=== PATIENT | male | born 1960 | race Caucasian/White ===

== ENCOUNTER 2022-02-22 15:47 | Inpatient (IN) | payer MEDICARE, MEDICAID, SELFPAY ==
[2022-02-22] VITALS (22 sets, daily range): BP systolic 151–193; BP diastolic 68–133; PULSE 83–107; RESP 13–24; TEMP 36.4–36.6; O2SAT 96–99; BMI 38.0
--- NOTE | ~2022-02-22 | XR_ITS ---
EXAMINATION: XR abdomen/kub 1V DATE: 02/23/2022 12:47 INDICATION: Constipation TECHNIQUE: A supine view of the abdomen was obtained. COMPARISON: None. FINDINGS: Small amount of stool scattered throughout the colon. No dilated loops of gas-filled bowel to suggest obstruction. Postoperative changes in the lower lumbar spine including likely L5 laminectomy, L5-S1 anterior spinal fusion with interbody bone graft cages and L4-S1 posterior spinal fusion with bilater al plate and pedicle screw fixation. IMPRESSION: 1. Normal bowel gas pattern. Reviewed, dictated and finalized at location B.
--- NOTE | ~2022-02-22 | XR_ITS ---
EXAMINATION: XR hip RT min 2V DATE: 02/23/2022 12:47 INDICATION: Right hip pain. TECHNIQUE: 2 views of right hip were obtained. COMPARISON: None. FINDINGS: Bone alignment is normal. No fracture. There are changes of anterior and posterior fusion p rocedure in lumbosacral spine. Right hip joint space is normal. Vascular stents are noted in right in guinal region and right thigh. IMPRESSION: 1. Normal right hip. Reviewed, dictated and finalized at location A. IMPRESSION: 1. Normal right hip.
--- NOTE | ~2022-02-22 | XR_ITS ---
EXAMINATION: XR chest 2V DATE: 02/22/2022 16:48 INDICATION: Chronic shortness of breath TECHNIQUE: PA and lateral views of the chest are obtained. COMPARISON: None available FINDINGS: The lungs are free of acute opacities. There is no pleural effusion or pneumothorax. The he art size is normal. Median sternotomy wires and mediastinal surgical clips are seen, likely from prio r coronary artery bypass grafting. There is moderate thoracic spondylosis. IMPRESSION: 1. No acute cardiopulmonary abnormality. Reviewed, dictated and finalized at location F.
--- NOTE | 2022-02-22 15:59 | ECG_ITS ---
Measurements Intervals [place] Rate: 94 P: 57 MA: 165 QRS: 110 QRSD: 85 T: 60 QT: 339 QTc: 425 Interpretive Statements SINUS RHYTHM MARKED RIGHT AXIS DEVIATION [QRS AXIS > 100] LOW QRS VOLTAGE IN PRECORDIAL LEADS [QRS DEFLECTION < 1.0 mV IN CHEST LEADS] POSSIBLE ANTERIOR MYOCARDIAL INFARCTION , OLD NO PREVIOUS ECG AVAILABLE FOR COMPARISON Electronically Signed On 02-23-2022 16:11:42 CDT by Taurus Maria M.D.
--- NOTE | 2022-02-22 16:59 | ED.SOB ---
HPI - SOB/Dyspnea General Chief Complaint: Shortness of Breath/Dyspnea Stated Complaint: difficulty breathing and hip pain after a fall Time Seen by Provider: 02/22/22 16:48 History of Present Illness HPI Narrative: 61-year-old male presents the emergency room for evaluation of shortness of breath and bilateral hip pain. Patient states that he was recently released from assisted, and was given a 30-day supply of his medications. Patient states that he has not taken any of his home medications for over 5 days. Patient states that he has had chronic hip pain, and has been awaiting bilateral hip repair. Patient has a history of COPD, and has run out of his inhalers as well. Patient does admit to history of smoking. Related Data Allergies Allergy/AdvReac Type Severity Reaction Status Date / Time No Known Allergies Allergy Verified 02/22/22 17:07 Review of Systems Review of Systems: CONSTITUTIONAL: Denies fever, chills, or sweats. EYES: Denies visual changes, redness, or discharge. ENT: Denies rhinorrhea, congestion, sore throat, or otalgia. CARDIOVASCULAR: Denies chest pain, palpitations, or edema. RESPIRATORY: Reports dyspnea GASTROINTESTINAL: Denies abdominal pain, nausea, vomiting, or diarrhea. GENITOURINARY: Denies dysuria or hematuria. SKIN: Denies rash or itching. MUSCULOSKELETAL: Reports bilateral hip pain NEUROLOGIC: Denies headache, numbness, dizziness, or weakness. PSYCHIATRIC: Denies anxiety or depression. [facility] Past Medical History Medical History (Updated 02/22/22 @ 17:02 by Robin Fernandes, THICKENER OPERATOR) COPD (chronic obstructive pulmonary disease) Diabetes type 2, uncontrolled HTN (hypertension) with goal to be determined Hyperglycemia Exam Narrative: GENERAL: Well-appearing, well-nourished, and in mild respiratory distress HEAD: Normocephalic, atraumatic. EYES: PERRLA and EOMI. CHEST: Clear to auscultation. No respiratory distress. Decreased breath sounds throughout HEART: Tachycardic and regular rhythm. No murmur heard. Normal peripheral pulses. ABDOMEN: Soft, nontender, nondistended, normal active bowel sounds. EXTREMITIES: Normal range of motion. Bilateral ankle edema. SKIN: Warm, dry, no rash. NEURO: No focal deficits. Alert and oriented x3. PSYCH: Normal mood and affect. Course Vital Signs Vital signs: Vital Signs Temperature 36.4 C L 02/22/22 16:00 Pulse Rate 101 H 02/22/22 16:00 Respiratory Rate 20 02/22/22 16:00 Blood Pressure 164/77 H 02/22/22 16:00 Pulse Oximetry 98 02/22/22 16:00 Temperature 36.4 C L 02/22/22 16:00 Pulse Rate 93 02/22/22 18:29 Respiratory Rate 20 02/22/22 16:00 Blood Pressure 164/77 H 02/22/22 16:00 Pulse Oximetry 98 02/22/22 16:00 MDM - SOB/Dyspnea MDM Narrative Medical decision making narrative: 61-year-old male presents the emergency room for evaluation of multiple medical problems. Patient states that he was recently incarcerated in [place], and was released back in November with a 30-day supply of all of his medications. Patient states that he has not taking any of his medications since then, with the exception of insulin that he has been able to get from [facility]. He has been unable to evaluate his blood sugars with a glucometer due to lack of funds. Patient presented complaints of increased thirst, increased urination, bilateral hip pain, and shortness of breath. CBC shows no anemia or leukocytosis. CMP demonstrated an elevated blood sugar of 549 with no anion gap, and renal insufficiency with creatinine of 1.7 and BUN of 45. EKG was sinus tach normal rhythm, chest x-ray showed no acute cardiopulmonary disease. Patient was given a breathing treatment, with minimal relief of his shortness of breath. Fluids were started wide open, 11 units of regular insulin given IV. Medical Records Attestation: I reviewed the patient's medical records. Lab Data Attestation: I reviewed the patient's lab results. Result diagrams: 02/22/22 17:11
[2022-02-22] MEDS: ALBUTEROL SULFATE NEB 2.5 MG/0.5 ML INH INHALATION (17:10)
[2022-02-22] MEDS: IPRATROPIUM BR 0.02% INH SOLN 0.5 MG/2.5 ML VIAL INHALATION (17:10)
[2022-02-22 17:20] LABS: Basophils Percent Auto 0.1 % (0.2-1.2); Hematocrit 42.8 % (42.0-52.0); Immature Granulocyte Absolute 0.05 K/mm3 (0.00-0.031); Immature Granulocyte Percent A 0.7 % (0-0.5); Lymphocytes Absolute Auto 0.81 K/mm3 (0.9-3.2); Lymphocytes Percent Auto 11.9 % (18.3-44.2); Mean Corpuscular HGB Conc 30.4 g/dl (32-36); Mean Corpuscular Hemoglobin 28.1 pg (26-34); Mean Corpuscular Volume 92.4 fl (80-100); Monocytes Absolute Auto 0.4 K/mm3 (0.1-0.6); Monocytes Percent Auto 5.1 % (2.6-8.5); Neutrophils Absolute Auto 5.6 K/mm3 (1.3-6.7); Neutrophils Percent Auto 82.2 % (45.5-73.1); Platelet Count Result 215 k/mm3 (150-375); Red Blood Count 4.63 M/mm3 (4.6-6.20); Red Cell Distribution Width 14.2 % (11.5-14.5); White Blood Count 6.8 K/mm3 (4.5-10.0)
[2022-02-22 17:40] LABS: Alanine Aminotransferase 32 U/L (4-50); Albumin Level 4.2 g/dL (3.5-5.1); Alkaline Phosphatase 92 U/L (38-126); Anion Gap 12 mmol/L (8-16); Aspartate Amino Transferase 34 U/L (17-59); Bilirubin,Total 0.3 mg/dL (0.2-1.3); Blood Urea Nitrogen 45 mg/dL (9-20); Calcium 8.6 mg/dL (8.4-10.2); Carbon Dioxide 19 mmol/L (22-30); Chloride 104 mmol/L (98-107); Estimated CRCL calculation 50 ml/min; Estimated Glomerular Filt Rate 41; Glucose 549 mg/dL (65-110); Potassium 5.3 mmol/L (3.4-5.0); Sodium 135 mmol/L (137-145)
[2022-02-22 17:44] LABS: NT Pro B Type Natriuretic Pept 464 pg/mL (5-100)
[2022-02-22] MEDS: METOPROLOL TARTRATE INJ 5 MG/5 ML VIAL IV PUSH (18:29)
[2022-02-22] MEDS: SODIUM CHLORIDE 0.9% IV 1,000 ML 999 ML IV CONT (18:29)
[2022-02-22] MEDS: methylPREDNISolone SOD SUCC 125 MG VIAL IV PUSH (18:34)
[2022-02-22] MEDS: INSULIN HUMAN REGULAR (*BKC) 100 UNITS/ML 11 UNITS IV PUSH (18:34)
[2022-02-22 20:18] LABS: SARS-CoV-2 RNA PCR Negative
[2022-02-22 20:36] LABS: Glucose Point of Care 441 mg/dl (65-105)
--- NOTE | 2022-02-22 20:45 | PM.IMHP ---
H&P: HPI History of Present Illness Date/Time: Patient requires inpatient monitoring with expected length of stay to exceed 2 midnights for management of care. 02/22/22 20:45 Chief Complaint: Shortness of breath Narrative: Mr. Vigil is a 61-year-old gentleman who presented emergency room with complaints of increasing shortness of breath over the last 3-4 days. Patient states that he was released from nursing home earlier this year and was given a 30 day supply of medications and after that 30 days he ran out. Patient states he has not been taking any of his home medications since December 30. Patient states that he has a known history of diabetes mellitus, dyslipidemia, CAD status post CABG status post stent placement, COPD, hepatitis-C and renal cell carcinoma. Patient denies any chest discomfort and states that he has just been having increasing shortness of breath. Patient denies any lightheadedness, dizziness, syncopal, or near syncopal episodes. Patient states he does continue to smoke approximately a pack of cigarettes a day and has done so for over 30 years. Patient states that in his younger days he did do a lot of crack and cocaine. Patient states that he was incarcerated in [place] and was discharged from the nursing home because he could no longer take care of his medical needs. Patient states he moved from [place] to this area secondary to family being close by. Patient states he has not been able to find a primary care provider at this time because he does not have his Medicaid approved yet. Review of Systems Review of Systems: A 12 point review of systems was completed patient all pertinent positive and negative per HPI the remainder are unremarkable. [facility] Past Medical History Medical History (Updated 02/22/22 @ 21:15 by Adela Hollis APRN) COPD (chronic obstructive pulmonary disease) Coronary artery disease Diabetes type 2, uncontrolled Dyslipidemia Hepatitis C HTN (hypertension) with goal to be determined Peripheral arterial disease Renal cell carcinoma Surgical History Surgical History (Updated 02/22/22 @ 21:02 by Adela Hollis APRN) History of lumbosacral spine surgery Hx of CABG Status post peripheral artery angioplasty with insertion of stent Social History Social History (Updated 02/22/22 @ 21:03 by Adela Hollis APRN) Smoking packs per day: 1 Smoking cigarettes per day: 20.0 Years smoked: 30 Smoking pack-years: 30.00 Smoking status: Current some day smoker Alcohol intake: former Substance use: former Substance use type: crack/cocaine Meds Home Medications and Allergies Home Medications Medication Instructions Recorded Confirmed Type albuterol sulfate 02/22/22 History albuterol sulfate INHALATION 02/22/22 02/22/22 History amlodipine 10 mg PO DAILY 02/22/22 History aspirin [Adult Aspirin EC Low 81 mg PO DAILY 02/22/22 History Strength] atorvastatin 40 mg PO DAILY 02/22/22 History carvedilol [Coreg] 3.125 mg PO BID 02/22/22 History fluticasone propionate 1 spray INTRANASAL DAILY 02/22/22 History furosemide 20 mg PO DAILY 02/22/22 History insulin NPH isoph U-100 human SUBCUT 02/22/22 History [Novolin N NPH U-100 Insulin] insulin regular human [Novolin R 02/22/22 History Regular U-100 Insuln] lisinopril 10 mg PO DAILY 02/22/22 History metformin 1,000 mg PO BIDWMEAL 02/22/22 History pantoprazole 40 mg PO QAM 02/22/22 History prednisone 02/22/22 History tamsulosin 0.8 mg PO HS 02/22/22 History tiotropium bromide 1 cap INHALATION DAILY 02/22/22 History Allergies Allergy/AdvReac Type Severity Reaction Status Date / Time No Known Allergies Allergy Verified 02/22/22 17:07 Vital Signs Vital Signs - 24 hr 02/22/22 16:00 02/22/22 17:12 02/22/22 17:22 Temperature 36.4 C L Pulse Rate 101 H 93 97 Respiratory Rate 20 Blood Pressure 164/77 H Pulse Oximetry 98 02/22/22 17:28 02/22/22 17:30 02/22/22 17:45 Temperature
--- NOTE | 2022-02-22 21:10 | ADMGEN ---
This patient, Flavio Vigil, was admitted to IMU Room 206-02. Patient/family oriented to hospital policies and general routines including ID bracelet, bed and alarms, visiting hours, pain management, procedures, bathroom and other care routines, personal items, smoking policy, room service/diet, and visiting hours. Information on how to activate the Rapid Response Team has been discussed. Patient/Family are encouraged to report perceived risks to care and to ask questions if they do not understand what they are told or what they should do.
[2022-02-22 21:22] LABS: Glucose Point of Care 496 mg/dl (65-105)
[2022-02-22] MEDS: SODIUM CHLORIDE 0.9% IV 1,000 ML 75 ML IV CONT (21:37)
[2022-02-22 21:39] LABS: Glucose 417 mg/dL (65-110)
[2022-02-22] MEDS: hydrALAZINE HCL 20 MG/ML VIAL 10 MG IV PUSH (21:46)
[2022-02-22] MEDS: INSULIN ASPART (*BKC) 100 UNITS/ML 10 UNITS SUB-Q (22:20)
[2022-02-22] MEDS: ACETAMINOPHEN 325 MG TABLET 650 MG PO (22:24)
[2022-02-22 23:46] LABS: Anion Gap 9 mmol/L (8-16); Blood Urea Nitrogen 44 mg/dL (9-20); Calcium 8.5 mg/dL (8.4-10.2); Carbon Dioxide 22 mmol/L (22-30); Chloride 103 mmol/L (98-107); Estimated CRCL calculation 59 ml/min; Estimated Glomerular Filt Rate 52; Glucose 392 mg/dL (65-110); Potassium 4.7 mmol/L (3.4-5.0); Sodium 134 mmol/L (137-145)
[2022-02-23] VITALS (25 sets, daily range): BP systolic 149–180; BP diastolic 63–98; PULSE 78–100; RESP 17–22; TEMP 36.1–36.9; O2SAT 94–99
[2022-02-23] MEDS: TAMSULOSIN HCL 0.4 MG CAPSULE 0.8 MG PO ×2 (00:05→21:41)
[2022-02-23] MEDS: carvediloL 3.125 MG TABLET PO ×3 (00:06→21:41)
[2022-02-23 00:14] LABS: Glucose Point of Care 390 mg/dl (65-105)
[2022-02-23] MEDS: ALBUTEROL SULFATE NEB 2.5 MG/3 ML INH INHALATION ×4 (02:00→20:46)
[2022-02-23] MEDS: IPRATROPIUM BR 0.02% INH SOLN 0.5 MG/2.5 ML VIAL INHALATION ×4 (02:00→20:46)
[2022-02-23 02:20] LABS: Glucose Point of Care 372 mg/dl (65-105)
[2022-02-23 04:10] LABS: Glucose Point of Care 409 mg/dl (65-105)
[2022-02-23] MEDS: INSULIN ASPART (*BKC) 100 UNITS/ML 12 UNITS SUB-Q (04:13)
[2022-02-23 05:12] LABS: Basophils Percent Auto 0.1 % (0.2-1.2); Hematocrit 42.7 % (42.0-52.0); Hemoglobin 13.3 g/dL (14.0-18.0); Immature Granulocyte Absolute 0.06 K/mm3 (0.00-0.031); Immature Granulocyte Percent A 0.9 % (0-0.5); Lymphocytes Absolute Auto 0.81 K/mm3 (0.9-3.2); Lymphocytes Percent Auto 11.5 % (18.3-44.2); Mean Corpuscular HGB Conc 31.1 g/dl (32-36); Mean Corpuscular Hemoglobin 28.2 pg (26-34); Mean Corpuscular Volume 90.5 fl (80-100); Mean Platelet Volume 11.4 fl (7.4-10.4); Monocytes Absolute Auto 0.3 K/mm3 (0.1-0.6); Monocytes Percent Auto 3.5 % (2.6-8.5); Neutrophils Absolute Auto 5.9 K/mm3 (1.3-6.7); Platelet Count Result 222 k/mm3 (150-375); Red Blood Count 4.72 M/mm3 (4.6-6.20); Red Cell Distribution Width 13.8 % (11.5-14.5); White Blood Count 7.1 K/mm3 (4.5-10.0)
[2022-02-23 05:27] LABS: Anion Gap 10 mmol/L (8-16); Blood Urea Nitrogen 43 mg/dL (9-20); Calcium 8.7 mg/dL (8.4-10.2); Carbon Dioxide 21 mmol/L (22-30); Chloride 105 mmol/L (98-107); Estimated CRCL calculation 63 ml/min; Estimated Glomerular Filt Rate 56; Glucose 417 mg/dL (65-110); Magnesium 2.2 mg/dL (1.6-2.3); Potassium 4.9 mmol/L (3.4-5.0); Sodium 136 mmol/L (137-145)
[2022-02-23 06:20] LABS: Glucose Point of Care 381 mg/dl (65-105)
[2022-02-23] MEDS: UMECLIDINIUM BROMIDE 62.5 MCG ELLIPTA 1 PUFF INHALATION (08:34)
[2022-02-23 08:45] LABS: Glucose Point of Care 344 mg/dl (65-105)
[2022-02-23] MEDS: amLODIPine BESYLATE 5 MG TABLET 10 MG PO (09:12)
[2022-02-23] MEDS: ATORVASTATIN 40 MG TABLET PO (09:12)
[2022-02-23] MEDS: ASPIRIN 81 MG ENTERIC TABLET PO (09:13)
[2022-02-23] MEDS: FAMOTIDINE 20 MG TABLET PO (09:13)
[2022-02-23] MEDS: predniSONE 20 MG TABLET 60 MG PO (09:13)
[2022-02-23] MEDS: lisinopriL 5 MG TABLET PO (09:13)
[2022-02-23] MEDS: FLUTICASONE PROPIONATE 0.05% NA SPR 16 GM BTL (*BKC) 1 SPRAY NASAL (09:14)
[2022-02-23] MEDS: AZELASTINE HCL NASAL 0.1% 137 MCG/SPR 30 ML BTL 1 SPRAY NASAL (09:14)
[2022-02-23] MEDS: lisinopriL 10 MG TABLET PO (09:14)
[2022-02-23] MEDS: ENOXAPARIN 40 MG/0.4 ML SYRINGE SUB-Q (09:14)
[2022-02-23] MEDS: CLOPIDOGREL BISULFATE 75 MG TABLET PO (09:14)
[2022-02-23] MEDS: FUROSEMIDE 20 MG TABLET PO (09:15)
[2022-02-23] MEDS: PANTOPRAZOLE 40 MG TABLET PO (09:15)
[2022-02-23] MEDS: INSULIN ASPART (*BKC) 100 UNITS/ML SUB-Q ×3 (09:43→18:03)
[2022-02-23] MEDS: SODIUM CHLORIDE 0.9% IV 1,000 ML 75 ML IV CONT ×2 (09:47→21:40)
--- NOTE | 2022-02-23 10:52 | PM.IMPN ---
Progress Note: A&P Assessment and Plan (1) Diabetes type 2, uncontrolled: Status: Acute Assessment and Plan: -Patient's blood glucose initially in the emergency room is 549. -states he was on multiple diabetic medications prior to running out 1 week ago, reports getting 50 units of insulin BID while in [facility]. -reports he recently had a 5 day course of steroids from the urgent care for his hip pain, this was likely a contributing factor to his even more elevated sugars -Accu-Cheks every 2 hours until glucose is under 300, after that we can change him to every 4 hours. -currently he is to get 17 units of Lantus QHS, high dose sliding scale, and 6 units of novolog TIDWM -will continue to adjust insulin doses as indicated -consult to geriatric physician and end worker appreciated (2) HTN (hypertension) with goal to be determined: Code(s): I10 - Essential (primary) hypertension Status: Acute Assessment and Plan: -Patient has not been taking any medications since December 30 for his blood pressure. -currently on norvasc 10 daily and coreg 3.125 bid -Will have p.r.n. hydralazine available w/ parameters -added lisinopril 5 mg QAM to his 10 mg BID since he is diabetic. -Will adjust medications accordingly for optimal blood pressure control. (3) COPD (chronic obstructive pulmonary disease): Code(s): J44.9 - Chronic obstructive pulmonary disease, unspecified Status: Acute Assessment and Plan: -Patient states he did take inhalers previous to running out -At this point time will have nebulizer treatments every 6 hours. -reports increased cough, cxr no acute findings -check flu -covid negative (4) ELOISA (acute kidney injury): Code(s): N17.9 - Acute kidney failure, unspecified Status: Acute Assessment and Plan: -Unsure of patient's baseline kidney function. -Will attempt to get records from [place] were patient was incarcerated. -receiving IVF @ 75 /hr (5) Hip pain: Code(s): M25.559 - Pain in unspecified hip Status: Acute Assessment and Plan: -reports terrible R hip pain, states waiting to see ortho but was told in [facility] he needs a hip replacement -also notes has had several recent falls exacerbating the pain -ordered hip XR -tylenol prn for now (6) Diabetic neuropathy: Code(s): E11.40 - Type 2 diabetes mellitus with diabetic neuropathy, unspecified Status: Acute Assessment and Plan: -start gabapentin (7) Constipation: Code(s): K59.00 - Constipation, unspecified Status: Acute Assessment and Plan: -reports to BM in 8 days -colace and miralax scheduled -check KUB (8) Urinary incontinence: Code(s): R32 - Unspecified urinary incontinence Status: Acute Assessment and Plan: -polyuria secondary to HTN? -check UA -continue flomax for BPH Subjective Date/time seen: 02/23/22 10:52 Interval history: 61 yo male w/ hx of diabetes mellitus, dyslipidemia, CAD status post CABG status post stent placement, COPD, hepatitis-C and renal cell carcinoma, admitted for hyperglycemia. Pt has multiple complaints today. He states his R hip pain is so bad he can barely walk. Is waiting to see ortho but was told in [facility] he needs a hip replacement. Went to urgent care recently and got a course of steroids. Has also been having falls recently exacerbating the pain. He c/o urinary incontinence and weak stream, no dysuria. Also notes constipation with no BM x 8 days. No nausea or abd pain. Has sob and had been using his inhaler at least 4 times a day until he ran out. C/o chest pain with cough which he has also had for a few weeks. Review of Systems Review of Systems: All systems reviewed & are unremarkable except as noted in HPI and below Exam Narrative: General: No acute distress, non toxic appearing Eyes: PERRL, no scleral
[2022-02-23 10:58] LABS: Glucose Point of Care 380 mg/dl (65-105)
[2022-02-23] MEDS: INSULIN ASPART (*BKC) 100 UNITS/ML 6 UNITS SUB-Q ×3 (14:35→18:03)
[2022-02-23] MEDS: GABAPENTIN 100 MG CAPSULE PO ×2 (14:41→18:03)
[2022-02-23 17:08] LABS: Glucose Point of Care 445 mg/dl (65-105)
[2022-02-23 20:02] LABS: Glucose Point of Care 453 mg/dl (65-105)
[2022-02-23] MEDS: DOCUSATE SODIUM 100 MG CAPSULE PO (21:41)
[2022-02-23] MEDS: INSULIN GLARGINE (*BKC) 100 UNITS/ML 17 UNITS SUB-Q (21:41)
[2022-02-23 22:15] LABS: Add Urine Microscopic? YES; Appearance Urine Clear (Clear); Bilirubin Urine Negative (Negative); Blood Urine Negative (Negative); Color Urine Straw (Yellow); Glucose Urine UA 3+ mg/dL (Negative); Ketones Urine Negative (Negative); Leukocyte Esterase Ur Negative LEU/UL (Negative); Nitrate Urine Negative (Negative); Protein Urine Negative (Negative); RBC Urine 0-2 /hpf (0-2); Specific Grav Ur 1.026 (1.001-1.035); Squamous Epithelial Cell Urine Rare /hpf (Few); Urobilinogen Urine Negative mg/dL (<2.0); WBC Urine 0-3 /hpf
[2022-02-24] VITALS (20 sets, daily range): BP systolic 141–163; BP diastolic 74–90; PULSE 68–84; RESP 16–22; TEMP 36.2–36.9; O2SAT 96–99; BMI 38.0
[2022-02-24] MEDS: IPRATROPIUM BR 0.02% INH SOLN 0.5 MG/2.5 ML VIAL INHALATION ×4 (02:35→21:00)
[2022-02-24] MEDS: ALBUTEROL SULFATE NEB 2.5 MG/3 ML INH INHALATION ×4 (02:35→20:59)
[2022-02-24 05:13] LABS: Basophils Percent Auto 0.1 % (0.2-1.2); Eosinophils Percent Auto 0.1 % (0-4.4); Hemoglobin 13.4 g/dL (14.0-18.0); Immature Granulocyte Absolute 0.06 K/mm3 (0.00-0.031); Immature Granulocyte Percent A 0.8 % (0-0.5); Lymphocytes Absolute Auto 1.63 K/mm3 (0.9-3.2); Lymphocytes Percent Auto 22.1 % (18.3-44.2); Mean Corpuscular HGB Conc 31.9 g/dl (32-36); Mean Corpuscular Hemoglobin 27.8 pg (26-34); Mean Corpuscular Volume 87.1 fl (80-100); Mean Platelet Volume 11.1 fl (7.4-10.4); Monocytes Absolute Auto 0.6 K/mm3 (0.1-0.6); Monocytes Percent Auto 7.7 % (2.6-8.5); Neutrophils Absolute Auto 5.1 K/mm3 (1.3-6.7); Neutrophils Percent Auto 69.2 % (45.5-73.1); Platelet Count Result 212 k/mm3 (150-375); Red Blood Count 4.82 M/mm3 (4.6-6.20); Red Cell Distribution Width 13.7 % (11.5-14.5); White Blood Count 7.4 K/mm3 (4.5-10.0)
[2022-02-24 05:38] LABS: Alanine Aminotransferase 26 U/L (4-50); Albumin Level 3.7 g/dL (3.5-5.1); Alkaline Phosphatase 72 U/L (38-126); Anion Gap 9 mmol/L (8-16); Aspartate Amino Transferase 21 U/L (17-59); Bilirubin,Total 0.4 mg/dL (0.2-1.3); Blood Urea Nitrogen 33 mg/dL (9-20); Calcium 8.5 mg/dL (8.4-10.2); Carbon Dioxide 23 mmol/L (22-30); Chloride 103 mmol/L (98-107); Estimated CRCL calculation 68 ml/min; Estimated Glomerular Filt Rate > 60; Glucose 362 mg/dL (65-110); Potassium 4.6 mmol/L (3.4-5.0); Sodium 135 mmol/L (137-145)
[2022-02-24] MEDS: UMECLIDINIUM BROMIDE 62.5 MCG ELLIPTA 1 PUFF INHALATION (08:04)
[2022-02-24 08:20] LABS: Hemoglobin A1C 10.3 % (<5.7)
[2022-02-24 08:43] LABS: Glucose Point of Care 292 mg/dl (65-105)
[2022-02-24] MEDS: INSULIN ASPART (*BKC) 100 UNITS/ML SUB-Q ×3 (08:49→16:35)
[2022-02-24] MEDS: INSULIN ASPART (*BKC) 100 UNITS/ML 10 UNITS SUB-Q ×3 (08:49→16:35)
[2022-02-24] MEDS: GABAPENTIN 100 MG CAPSULE PO ×3 (08:50→18:11)
[2022-02-24] MEDS: ATORVASTATIN 40 MG TABLET PO (08:50)
[2022-02-24] MEDS: FAMOTIDINE 20 MG TABLET PO (08:50)
[2022-02-24] MEDS: amLODIPine BESYLATE 5 MG TABLET 10 MG PO (08:50)
[2022-02-24] MEDS: ASPIRIN 81 MG ENTERIC TABLET PO (08:50)
[2022-02-24] MEDS: DOCUSATE SODIUM 100 MG CAPSULE PO ×2 (08:50→20:27)
[2022-02-24] MEDS: lisinopriL 10 MG TABLET PO (08:50)
[2022-02-24] MEDS: predniSONE 20 MG TABLET 60 MG PO (08:50)
[2022-02-24] MEDS: CLOPIDOGREL BISULFATE 75 MG TABLET PO (08:50)
[2022-02-24] MEDS: FUROSEMIDE 20 MG TABLET PO (08:51)
[2022-02-24] MEDS: ENOXAPARIN 40 MG/0.4 ML SYRINGE SUB-Q (08:51)
[2022-02-24] MEDS: lisinopriL 5 MG TABLET PO (08:51)
[2022-02-24] MEDS: FLUTICASONE PROPIONATE 0.05% NA SPR 16 GM BTL (*BKC) 1 SPRAY NASAL (08:51)
[2022-02-24] MEDS: PANTOPRAZOLE 40 MG TABLET PO (08:51)
[2022-02-24] MEDS: AZELASTINE HCL NASAL 0.1% 137 MCG/SPR 30 ML BTL 1 SPRAY NASAL ×2 (08:52→20:26)
[2022-02-24] MEDS: carvediloL 3.125 MG TABLET PO ×2 (08:52→20:26)
[2022-02-24] MEDS: polyethylene glycoL 3350 17 GM POWD.PACK PO (08:52)
--- NOTE | 2022-02-24 10:03 | PM.IMPN ---
Progress Note: A&P Assessment and Plan (1) Diabetes type 2, uncontrolled: Status: Acute Assessment and Plan: -Patient's blood glucose initially in the emergency room is 549. -hgb A1c 10.3 -states he was on multiple diabetic medications prior to running out 1 week ago, reports getting 50 units of insulin BID while in senior care. (today he corrects himself and says it was really 30 units BID) -reports he recently had a 5 day course of steroids from the urgent care for his hip pain, this was likely a contributing factor to his even more elevated sugars -Accu-Cheks every 2 hours until glucose is under 300, after that we can change him to every 4 hours. -yesterday he received 17 units of Lantus QHS, high dose sliding scale, and 6 units of novolog TIDWM -today I have increased him to 30 units of Lantus QHS, 10 units novolog TIDWM, and continue high dose sliding scale -will continue to adjust insulin doses as indicated -consult to traveling passenger agent and wellfield technician appreciated (2) HTN (hypertension) with goal to be determined: Code(s): I10 - Essential (primary) hypertension Status: Acute Assessment and Plan: -Patient has not been taking any medications since December 30 for his blood pressure. -currently on norvasc 10 daily and coreg 3.125 bid -Will have p.r.n. hydralazine available w/ parameters -added lisinopril 5 mg QAM to his 10 mg BID since he is diabetic. -Will adjust medications accordingly for optimal blood pressure control. (3) COPD (chronic obstructive pulmonary disease): Code(s): J44.9 - Chronic obstructive pulmonary disease, unspecified Status: Acute Assessment and Plan: -Patient states he did take inhalers previous to running out -At this point time will have nebulizer treatments every 6 hours. -reports increased cough, cxr no acute findings -check flu -covid negative (4) ELOISA (acute kidney injury): Code(s): N17.9 - Acute kidney failure, unspecified Status: Acute Assessment and Plan: -Unsure of patient's baseline kidney function. -Will attempt to get records from [place] were patient was incarcerated. -receiving IVF @ 75 /hr, improved from 1.7 to 1.2 (5) Hip pain: Code(s): M25.559 - Pain in unspecified hip Status: Acute Assessment and Plan: -reports terrible R hip pain, states waiting to see ortho but was told in senior care he needs a hip replacement -also notes has had several recent falls exacerbating the pain -hip XR normal -tylenol prn (6) Diabetic neuropathy: Code(s): E11.40 - Type 2 diabetes mellitus with diabetic neuropathy, unspecified Status: Acute Assessment and Plan: -started gabapentin -pt reports significant improvement (7) Constipation: Code(s): K59.00 - Constipation, unspecified Status: Acute Assessment and Plan: -reports to BM in 9 days -colace and miralax scheduled -KUB normal (8) Urinary incontinence: Code(s): R32 - Unspecified urinary incontinence Status: Acute Assessment and Plan: -polyuria secondary to hyperglycemia? -UA w/ 3+ glucose otherwise normal -continue flomax for BPH Subjective Date/time seen: 02/24/22 10:03 Interval history: 61 yo male w/ hx of diabetes mellitus, dyslipidemia, CAD status post CABG status post stent placement, COPD, hepatitis-C and renal cell carcinoma, admitted for hyperglycemia. Pt is overall feeling better since being here and having his meds restarted. Blood sugar is still relatively uncontrolled. His hip is still hurting but his peripheral neuropathy in his feet is significantly improved with gabapentin. No cp. Sob is improved today. No N/V/abd pain. Still no BM. Review of Systems Review of Systems: All systems reviewed & are unremarkable except as noted in HPI and below Exam Narrative: General: No acute distress, non toxic appearing, o
[2022-02-24] MEDS: SODIUM CHLORIDE 0.9% IV 1,000 ML 75 ML IV CONT (11:09)
[2022-02-24 11:34] LABS: Glucose Point of Care 356 mg/dl (65-105)
--- NOTE | 2022-02-24 13:09 | PCDIET ---
Pt was educated on diabetic diet recommendations. Carbohydrates sources, serving sizes and portions all discussed. Handouts provided. Pt demonstrated good understanding and comprehension. Eager to continue to learn. Recommend a referral for outpatient education. Thank you for the consult.
[2022-02-24 16:30] LABS: Glucose Point of Care 332 mg/dl (65-105)
[2022-02-24] MEDS: TAMSULOSIN HCL 0.4 MG CAPSULE 0.8 MG PO (20:27)
[2022-02-24] MEDS: INSULIN GLARGINE (*BKC) 100 UNITS/ML 30 UNITS SUB-Q (20:30)
[2022-02-24 20:51] LABS: Glucose Point of Care 340 mg/dl (65-105)
[2022-02-25] VITALS (13 sets, daily range): BP systolic 157–163; BP diastolic 71–87; PULSE 68–84; RESP 18–19; TEMP 36.5–36.7; O2SAT 94–98
[2022-02-25] MEDS: SODIUM CHLORIDE 0.9% IV 1,000 ML 75 ML IV CONT ×3 (00:19→14:37)
[2022-02-25] MEDS: ALBUTEROL SULFATE NEB 2.5 MG/3 ML INH INHALATION ×4 (02:36→19:59)
[2022-02-25] MEDS: IPRATROPIUM BR 0.02% INH SOLN 0.5 MG/2.5 ML VIAL INHALATION ×4 (02:36→19:59)
[2022-02-25 05:46] LABS: Basophils Percent Auto 0.1 % (0.2-1.2); Eosinophils Percent Auto 0.5 % (0-4.4); Hematocrit 43.8 % (42.0-52.0); Hemoglobin 13.5 g/dL (14.0-18.0); Immature Granulocyte Absolute 0.07 K/mm3 (0.00-0.031); Immature Granulocyte Percent A 0.8 % (0-0.5); Lymphocytes Absolute Auto 1.85 K/mm3 (0.9-3.2); Lymphocytes Percent Auto 22.1 % (18.3-44.2); Mean Corpuscular HGB Conc 30.8 g/dl (32-36); Mean Corpuscular Hemoglobin 27.6 pg (26-34); Mean Corpuscular Volume 89.6 fl (80-100); Monocytes Absolute Auto 0.6 K/mm3 (0.1-0.6); Monocytes Percent Auto 7.4 % (2.6-8.5); Neutrophils Absolute Auto 5.8 K/mm3 (1.3-6.7); Neutrophils Percent Auto 69.1 % (45.5-73.1); Platelet Count Result 202 k/mm3 (150-375); Red Blood Count 4.89 M/mm3 (4.6-6.20); Red Cell Distribution Width 13.8 % (11.5-14.5); White Blood Count 8.4 K/mm3 (4.5-10.0)
[2022-02-25 05:57] LABS: Alanine Aminotransferase 33 U/L (4-50); Albumin Level 3.5 g/dL (3.5-5.1); Alkaline Phosphatase 65 U/L (38-126); Anion Gap 3 mmol/L (8-16); Aspartate Amino Transferase 28 U/L (17-59); Bilirubin,Total 0.4 mg/dL (0.2-1.3); Blood Urea Nitrogen 30 mg/dL (9-20); Calcium 8.2 mg/dL (8.4-10.2); Carbon Dioxide 25 mmol/L (22-30); Chloride 102 mmol/L (98-107); Estimated CRCL calculation 74 ml/min; Estimated Glomerular Filt Rate > 60; Glucose 312 mg/dL (65-110); Potassium 4.5 mmol/L (3.4-5.0); Sodium 130 mmol/L (137-145)
[2022-02-25 07:47] LABS: Glucose Point of Care 307 mg/dl (65-105)
[2022-02-25] MEDS: INSULIN ASPART (*BKC) 100 UNITS/ML 10 UNITS SUB-Q ×2 (08:04→11:47)
[2022-02-25] MEDS: INSULIN ASPART (*BKC) 100 UNITS/ML SUB-Q ×3 (08:05→16:42)
[2022-02-25] MEDS: FAMOTIDINE 20 MG TABLET PO (08:06)
[2022-02-25] MEDS: carvediloL 3.125 MG TABLET PO ×2 (08:06→21:10)
[2022-02-25] MEDS: amLODIPine BESYLATE 5 MG TABLET 10 MG PO (08:06)
[2022-02-25] MEDS: FUROSEMIDE 20 MG TABLET PO (08:06)
[2022-02-25] MEDS: PANTOPRAZOLE 40 MG TABLET PO (08:07)
[2022-02-25] MEDS: lisinopriL 10 MG TABLET PO (08:07)
[2022-02-25] MEDS: GABAPENTIN 100 MG CAPSULE PO ×3 (08:07→16:43)
[2022-02-25] MEDS: CLOPIDOGREL BISULFATE 75 MG TABLET PO (08:07)
[2022-02-25] MEDS: ASPIRIN 81 MG ENTERIC TABLET PO (08:07)
[2022-02-25] MEDS: ATORVASTATIN 40 MG TABLET PO (08:07)
[2022-02-25] MEDS: polyethylene glycoL 3350 17 GM POWD.PACK PO (08:08)
[2022-02-25] MEDS: lisinopriL 5 MG TABLET PO (08:08)
[2022-02-25] MEDS: predniSONE 20 MG TABLET 60 MG PO (08:08)
[2022-02-25] MEDS: DOCUSATE SODIUM 100 MG CAPSULE PO ×2 (08:08→21:10)
[2022-02-25] MEDS: ENOXAPARIN 40 MG/0.4 ML SYRINGE SUB-Q (08:08)
[2022-02-25] MEDS: FLUTICASONE PROPIONATE 0.05% NA SPR 16 GM BTL (*BKC) 1 SPRAY NASAL (08:15)
[2022-02-25] MEDS: AZELASTINE HCL NASAL 0.1% 137 MCG/SPR 30 ML BTL 1 SPRAY NASAL ×2 (08:15→21:10)
[2022-02-25] MEDS: ACETAMINOPHEN 325 MG TABLET 650 MG PO (08:19)
[2022-02-25] MEDS: UMECLIDINIUM BROMIDE 62.5 MCG ELLIPTA 1 PUFF INHALATION (09:13)
[2022-02-25 11:46] LABS: Glucose Point of Care 239 mg/dl (65-105)
--- NOTE | 2022-02-25 12:28 | PC.NURSE ---
Faxed [facility]
--- NOTE | 2022-02-25 15:08 | P.PNIM_ITS ---
Progress Note: A&P Assessment and Plan (1) Diabetes type 2, uncontrolled: Status: Acute Assessment and Plan: * Patient's blood glucose initially in the emergency room is 549. * Fasting Blood glucose 312 today * Discontinued prednisone 60mg. * hgb A1c 10.3 * He now states he was on multiple diabetic medications prior to running out 1 week ago, to include metformin, and 30 units of long-acting insulin BID and 30 units of short-acting insulin b.i.d. while in [facility]. * Accu-Cheks every 4 hours. * Yesterday he received 30 units units of Lantus QHS, and 25 units of NovoLog with his high dose sliding scale insulin, and 10 units of novolog TIDWM, total of 85 units * I will increased his lantus to 40 units & Novolog to 13 units TIDWM * will continue to adjust insulin doses as indicated * Patient spoke with diabetic mva reactor operator head and educator today. (2) HTN (hypertension) with goal to be determined: Code(s): I10 - Essential (primary) hypertension Status: Acute Assessment and Plan: -Patient has not been taking any medications since December 30 for his blood pressure. -Currently on norvasc 10 daily, coreg 3.125 bid, and Lisinopril 15mg daily -Will have p.r.n. hydralazine available w/ parameters -Increase lisinopril to 20mg daily, as pt still hypertensive. -Will adjust medications accordingly for optimal blood pressure control. (3) COPD (chronic obstructive pulmonary disease): Code(s): J44.9 - Chronic obstructive pulmonary disease, unspecified Status: Acute Assessment and Plan: * Patient states he did take inhalers previous to running out * At this point time will have nebulizer treatments every 6 hours. * reports increased cough, cxr no acute findings * check flu * covid negative (4) ELOISA (acute kidney injury): Code(s): N17.9 - Acute kidney failure, unspecified Status: Acute Assessment and Plan: * patient creatinine normalized to 1.1 * BUN still elevated, but patient is orally rehydrating. * Will continue IV fluids for now. (5) Hip pain: Code(s): M25.559 - Pain in unspecified hip Status: Acute Assessment and Plan: * reports terrible R hip pain, states waiting to see ortho but was told in [facility] he needs a hip replacement * also notes has had several recent falls exacerbating the pain * hip XR normal * tylenol prn (6) Diabetic neuropathy: Code(s): E11.40 - Type 2 diabetes mellitus with diabetic neuropathy, unspecified Status: Acute Assessment and Plan: * started gabapentin * pt reports significant improvement (7) Constipation: Code(s): K59.00 - Constipation, unspecified Status: Acute Assessment and Plan: * reports last BM in 9 days, with some crampy abdominal pain today. * colace and miralax scheduled * KUB normal * Enema today (8) Urinary incontinence: Code(s): R32 - Unspecified urinary incontinence Status: Acute Assessment and Plan: * polyuria secondary to hyperglycemia? * UA w/ 3+ glucose otherwise normal * continue flomax for BPH Subjective Date/time seen: 02/25/22 15:08 61-year-old male with history of COPD, hypertension, diabetes mellitus type 2, BPH, who presents to our care with elevated blood glucose. He recently ran out of all of his medications after receiving a compassionate release from [facility]. He states he was diagnosed with nat[place]
--- NOTE | 2022-02-25 15:08 | PM.IMPN ---
Progress Note: A&P Assessment and Plan (1) Diabetes type 2, uncontrolled: Status: Acute Assessment and Plan: Patient's blood glucose initially in the emergency room is 549. Fasting Blood glucose 312 today Discontinued prednisone 60mg. hgb A1c 10.3 He now states he was on multiple diabetic medications prior to running out 1 week ago, to include metformin, and 30 units of long-acting insulin BID and 30 units of short-acting insulin b.i.d. while in [facility]. Accu-Cheks every 4 hours. Yesterday he received 30 units units of Lantus QHS, and 25 units of NovoLog with his high dose sliding scale insulin, and 10 units of novolog TIDWM, total of 85 units I will increased his lantus to 40 units & Novolog to 13 units TIDWM will continue to adjust insulin doses as indicated Patient spoke with diabetic facility maintenance supervisor and educator today. (2) HTN (hypertension) with goal to be determined: Code(s): I10 - Essential (primary) hypertension Status: Acute Assessment and Plan: -Patient has not been taking any medications since December 30 for his blood pressure. -Currently on norvasc 10 daily, coreg 3.125 bid, and Lisinopril 15mg daily -Will have p.r.n. hydralazine available w/ parameters -Increase lisinopril to 20mg daily, as pt still hypertensive. -Will adjust medications accordingly for optimal blood pressure control. (3) COPD (chronic obstructive pulmonary disease): Code(s): J44.9 - Chronic obstructive pulmonary disease, unspecified Status: Acute Assessment and Plan: Patient states he did take inhalers previous to running out At this point time will have nebulizer treatments every 6 hours. reports increased cough, cxr no acute findings check flu covid negative (4) ELOISA (acute kidney injury): Code(s): N17.9 - Acute kidney failure, unspecified Status: Acute Assessment and Plan: patient creatinine normalized to 1.1 BUN still elevated, but patient is orally rehydrating. Will continue IV fluids for now. (5) Hip pain: Code(s): M25.559 - Pain in unspecified hip Status: Acute Assessment and Plan: reports terrible R hip pain, states waiting to see ortho but was told in [facility] he needs a hip replacement also notes has had several recent falls exacerbating the pain hip XR normal tylenol prn (6) Diabetic neuropathy: Code(s): E11.40 - Type 2 diabetes mellitus with diabetic neuropathy, unspecified Status: Acute Assessment and Plan: started gabapentin pt reports significant improvement (7) Constipation: Code(s): K59.00 - Constipation, unspecified Status: Acute Assessment and Plan: reports last BM in 9 days, with some crampy abdominal pain today. colace and miralax scheduled KUB normal Enema today (8) Urinary incontinence: Code(s): R32 - Unspecified urinary incontinence Status: Acute Assessment and Plan: polyuria secondary to hyperglycemia? UA w/ 3+ glucose otherwise normal continue flomax for BPH Subjective Date/time seen: 02/25/22 15:08 61-year-old male with history of COPD, hypertension, diabetes mellitus type 2, BPH, who presents to our care with elevated blood glucose. He recently ran out of all of his medications after receiving a compassionate release from [facility]. He states he was diagnosed with renal cancer on both sides, peripheral vascular disease, and also needs a left hip replacement, none of which was taken care of while he was incarcerated. He states yesterday has Medicaid went into affect, and he plans on scheduling an outpatient appointment with a primary care provider that he was referred to from urgent care as soon as possible. He denies chest pain, nausea, vomiting, decreased appetite, shortness a breath at rest, dizziness, diarrhea, or blood in the stool, or syncope. He endorses crampy left lowe
[2022-02-25 16:24] LABS: Glucose Point of Care 367 mg/dl (65-105)
[2022-02-25] MEDS: INSULIN ASPART (*BKC) 100 UNITS/ML 13 UNITS SUB-Q (16:41)
[2022-02-25] MEDS: BISACODYL 10 MG SUPPOSITORY RECTAL (16:41)
[2022-02-25 20:04] LABS: Glucose Point of Care 353 mg/dl (65-105)
[2022-02-25] MEDS: INSULIN GLARGINE (*BKC) 100 UNITS/ML 40 UNITS SUB-Q (21:06)
[2022-02-25] MEDS: INSULIN ASPART (*BKC) 100 UNITS/ML 8 UNITS SUB-Q (21:07)
[2022-02-25] MEDS: TAMSULOSIN HCL 0.4 MG CAPSULE 0.8 MG PO (21:10)
[2022-02-26] VITALS (15 sets, daily range): BP systolic 131–159; BP diastolic 58–73; PULSE 70–84; RESP 2–18; TEMP 36.4–36.6; O2SAT 97–98
[2022-02-26] MEDS: ALBUTEROL SULFATE NEB 2.5 MG/3 ML INH INHALATION ×4 (01:30→20:50)
[2022-02-26] MEDS: IPRATROPIUM BR 0.02% INH SOLN 0.5 MG/2.5 ML VIAL INHALATION ×4 (01:30→20:50)
[2022-02-26] MEDS: SODIUM CHLORIDE 0.9% IV 1,000 ML 75 ML IV CONT ×2 (03:51→16:33)
[2022-02-26 07:22] LABS: Glucose Point of Care 303 mg/dl (65-105)
[2022-02-26] MEDS: FLUTICASONE PROPIONATE 0.05% NA SPR 16 GM BTL (*BKC) 1 SPRAY NASAL (08:04)
[2022-02-26] MEDS: polyethylene glycoL 3350 17 GM POWD.PACK PO (08:04)
[2022-02-26] MEDS: lisinopriL 20 MG TABLET PO (08:05)
[2022-02-26] MEDS: AZELASTINE HCL NASAL 0.1% 137 MCG/SPR 30 ML BTL 1 SPRAY NASAL ×2 (08:05→19:55)
[2022-02-26] MEDS: CLOPIDOGREL BISULFATE 75 MG TABLET PO (08:05)
[2022-02-26] MEDS: ASPIRIN 81 MG ENTERIC TABLET PO (08:05)
[2022-02-26] MEDS: FUROSEMIDE 20 MG TABLET PO (08:05)
[2022-02-26] MEDS: FAMOTIDINE 20 MG TABLET PO (08:05)
[2022-02-26] MEDS: ENOXAPARIN 40 MG/0.4 ML SYRINGE SUB-Q (08:05)
[2022-02-26] MEDS: amLODIPine BESYLATE 5 MG TABLET 10 MG PO (08:05)
[2022-02-26] MEDS: GABAPENTIN 100 MG CAPSULE PO ×3 (08:06→16:29)
[2022-02-26] MEDS: carvediloL 3.125 MG TABLET PO ×2 (08:06→20:02)
[2022-02-26] MEDS: ATORVASTATIN 40 MG TABLET PO (08:06)
[2022-02-26] MEDS: DOCUSATE SODIUM 100 MG CAPSULE PO ×2 (08:06→19:55)
[2022-02-26] MEDS: PANTOPRAZOLE 40 MG TABLET PO (08:06)
[2022-02-26] MEDS: INSULIN ASPART (*BKC) 100 UNITS/ML 13 UNITS SUB-Q ×3 (08:06→16:29)
[2022-02-26] MEDS: INSULIN ASPART (*BKC) 100 UNITS/ML SUB-Q ×2 (08:06→11:33)
[2022-02-26] MEDS: UMECLIDINIUM BROMIDE 62.5 MCG ELLIPTA 1 PUFF INHALATION (08:21)
[2022-02-26 09:58] LABS: Influenza A QL RT-PCR Negative (Negative); Influenza B QL RT-PCR Negative (Negative)
[2022-02-26 11:28] LABS: Glucose Point of Care 300 mg/dl (65-105)
[2022-02-26 13:19] LABS: Basophils Percent Auto 0.3 % (0.2-1.2); Eosinophils Absolute Auto 0.1 K/mm3 (0-0.3); Eosinophils Percent Auto 1.8 % (0-4.4); Hematocrit 43.2 % (42.0-52.0); Hemoglobin 13.8 g/dL (14.0-18.0); Immature Granulocyte Absolute 0.12 K/mm3 (0.00-0.031); Immature Granulocyte Percent A 1.5 % (0-0.5); Lymphocytes Absolute Auto 2.48 K/mm3 (0.9-3.2); Lymphocytes Percent Auto 31.2 % (18.3-44.2); Mean Corpuscular HGB Conc 31.9 g/dl (32-36); Mean Corpuscular Hemoglobin 28.2 pg (26-34); Mean Corpuscular Volume 88.3 fl (80-100); Mean Platelet Volume 11.3 fl (7.4-10.4); Monocytes Absolute Auto 0.7 K/mm3 (0.1-0.6); Monocytes Percent Auto 9.2 % (2.6-8.5); Neutrophils Absolute Auto 4.5 K/mm3 (1.3-6.7); Platelet Count Result 214 k/mm3 (150-375); Red Blood Count 4.89 M/mm3 (4.6-6.20); Red Cell Distribution Width 13.8 % (11.5-14.5)
[2022-02-26 13:31] LABS: Alanine Aminotransferase 52 U/L (4-50); Albumin Level 3.6 g/dL (3.5-5.1); Alkaline Phosphatase 73 U/L (38-126); Anion Gap 7 mmol/L (8-16); Aspartate Amino Transferase 40 U/L (17-59); Bilirubin,Total 0.3 mg/dL (0.2-1.3); Blood Urea Nitrogen 28 mg/dL (9-20); Calcium 8.3 mg/dL (8.4-10.2); Carbon Dioxide 26 mmol/L (22-30); Chloride 98 mmol/L (98-107); Estimated CRCL calculation 68 ml/min; Estimated Glomerular Filt Rate > 60; Glucose 326 mg/dL (65-110); Potassium 3.9 mmol/L (3.4-5.0); Sodium 131 mmol/L (137-145)
--- NOTE | 2022-02-26 14:16 | PM.IMPN ---
Progress Note: A&P Assessment and Plan (1) Diabetes type 2, uncontrolled: Status: Acute Assessment and Plan: Patient's blood glucose initially in the emergency room is 549. Fasting Blood glucose 326 today Hgb A1c 10.3 He now states he was on multiple diabetic medications prior to running out 1 week ago. He now states that he has actually been off all medications for over 2 months. Accu-Cheks every 4 hours. Today so far he has received 90 units, up from 81 yesterday. I will increase 50 lantus at night & 17 units Novolog to TIDWM. Continue high dose sliding scale insulin. Will continue to adjust insulin doses as indicated Patient still has a poor understanding of his diabetic medications and fingersticks, will ask for re-visit with primary special educator. (2) HTN (hypertension) with goal to be determined: Code(s): I10 - Essential (primary) hypertension Status: Acute Assessment and Plan: Blood pressures in 150s today. Currently on norvasc 10 daily, coreg 3.125 bid, and Lisinopril 20mg daily Will have p.r.n. hydralazine available w/ parameters. Will adjust medications accordingly for optimal blood pressure control. (3) COPD (chronic obstructive pulmonary disease): Code(s): J44.9 - Chronic obstructive pulmonary disease, unspecified Status: Acute Assessment and Plan: Patient states he did take inhalers previous to running out At this point time will have nebulizer treatments every 6 hours. Reports increased cough, cxr no acute findings Covid negative (4) ELOISA (acute kidney injury): Code(s): N17.9 - Acute kidney failure, unspecified Status: Acute Assessment and Plan: Cr 1.2 today. BUN still elevated, but patient is orally rehydrating. Will continue IV fluids. (5) Hip pain: Code(s): M25.559 - Pain in unspecified hip Status: Acute Assessment and Plan: Reports terrible R hip pain, states waiting to see ortho but was told in skilled nursing he needs a hip replacement Hip XR normal Tylenol prn (6) Diabetic neuropathy: Code(s): E11.40 - Type 2 diabetes mellitus with diabetic neuropathy, unspecified Status: Acute Assessment and Plan: Started gabapentin pt reports significant improvement (7) Constipation: Code(s): K59.00 - Constipation, unspecified Status: Acute Assessment and Plan: reports last BM in 11 days, suppository did not stimulate BM. colace and miralax scheduled Soap Suds enema today (8) Urinary incontinence: Code(s): R32 - Unspecified urinary incontinence Status: Acute Assessment and Plan: Continue Flomax for BPH (9) Transaminitis: Code(s): R74.01 - Elevation of levels of liver transaminase levels Status: Acute Assessment and Plan: ALT elevation (52) today. Given recent incarceration, will check hepatitis panel. Subjective Date/time seen: 02/26/22 14:16 a 61-year-old male with history of diabetes, hypertension, COPD, here for high blood sugars. He reports he is feeling very well today, and is happy with his care. We discussed that his blood sugars are still quite high, and he assured me he is not seeking any can not be, and the staff is taking all of his bread. He states when he does have a honey but he will take an extra metformin to help with the sugars, and that he later stated he actually avoids metformin in general because he thinks it is bad for his liver. We discussed the proper use of metformin, as well as went to check blood sugars. He has still not had a bowel movement after his suppository yesterday, Which is 10 days without a bowel movement. He does have abdominal tightness and 'bubbliness'. He denies chest pain, shortness a breath. Review of Systems Review of Systems: All systems reviewed & are unremarkable except as noted in
--- NOTE | 2022-02-26 14:16 | P.PNIM_ITS ---
Progress Note: A&P Assessment and Plan (1) Diabetes type 2, uncontrolled: Status: Acute Assessment and Plan: * Patient's blood glucose initially in the emergency room is 549. * Fasting Blood glucose 326 today * Hgb A1c 10.3 * He now states he was on multiple diabetic medications prior to running out 1 week ago. He now states that he has actually been off all medications for over 2 months. * Accu-Cheks every 4 hours. * Today so far he has received 90 units, up from 81 yesterday. * I will increase 50 lantus at night & 17 units Novolog to TIDWM. * Continue high dose sliding scale insulin. * Will continue to adjust insulin doses as indicated * Patient still has a poor understanding of his diabetic medications and fingersticks, will ask for re-visit with medical educator. (2) HTN (hypertension) with goal to be determined: Code(s): I10 - Essential (primary) hypertension Status: Acute Assessment and Plan: * Blood pressures in 150s today. * Currently on norvasc 10 daily, coreg 3.125 bid, and Lisinopril 20mg daily * Will have p.r.n. hydralazine available w/ parameters. * Will adjust medications accordingly for optimal blood pressure control. (3) COPD (chronic obstructive pulmonary disease): Code(s): J44.9 - Chronic obstructive pulmonary disease, unspecified Status: Acute Assessment and Plan: * Patient states he did take inhalers previous to running out * At this point time will have nebulizer treatments every 6 hours. * Reports increased cough, cxr no acute findings * Covid negative (4) ELOISA (acute kidney injury): Code(s): N17.9 - Acute kidney failure, unspecified Status: Acute Assessment and Plan: * Cr 1.2 today. * BUN still elevated, but patient is orally rehydrating. * Will continue IV fluids. (5) Hip pain: Code(s): M25.559 - Pain in unspecified hip Status: Acute Assessment and Plan: * Reports terrible R hip pain, states waiting to see ortho but was told in [facility] he needs a hip replacement * Hip XR normal * Tylenol prn (6) Diabetic neuropathy: Code(s): E11.40 - Type 2 diabetes mellitus with diabetic neuropathy, unspecified Status: Acute Assessment and Plan: * Started gabapentin * pt reports significant improvement (7) Constipation: Code(s): K59.00 - Constipation, unspecified Status: Acute Assessment and Plan: * reports last BM in 11 days, suppository did not stimulate BM. * colace and miralax scheduled * Soap Suds enema today (8) Urinary incontinence: Code(s): R32 - Unspecified urinary incontinence Status: Acute Assessment and Plan: * Continue Flomax for BPH (9) Transaminitis: Code(s): R74.01 - Elevation of levels of liver transaminase levels Status: Acute Assessment and Plan: * ALT elevation (52) today. Given recent incarceration, will check hepatitis panel. Subjective Date/time seen: 02/26/22 14:16 a 61-year-old male with history of diabetes, hypertension, COPD, here for high blood sugars. He reports he is feeling very well today, and is happy with his care. We discussed that his blood sugars are still quite high, and he assured me he is not seeking any can not be, and the staff is taking all of his bread. He states when he does have a honey but he will take an extra metformi
[2022-02-26 14:29] LABS: Hepatitis B Surface Antigen Negative (Negative)
[2022-02-26 14:35] LABS: HAV RESULT Negative (Negative); Hepatitis B Core IgM Result Negative (Negative)
[2022-02-26 15:03] LABS: Hepatitis C Virus Antibody Reactive (Negative)
[2022-02-26 16:27] LABS: Glucose Point of Care 180 mg/dl (65-105)
[2022-02-26] MEDS: TAMSULOSIN HCL 0.4 MG CAPSULE 0.8 MG PO (19:55)
[2022-02-26] MEDS: INSULIN GLARGINE (*BKC) 100 UNITS/ML 40 UNITS SUB-Q (20:02)
[2022-02-26 20:18] LABS: Glucose Point of Care 203 mg/dl (65-105)
[2022-02-27 02:20] VITALS: PULSE 80; RESP 18
[2022-02-27] MEDS: IPRATROPIUM BR 0.02% INH SOLN 0.5 MG/2.5 ML VIAL INHALATION ×2 (02:20→08:10)
[2022-02-27] MEDS: ALBUTEROL SULFATE NEB 2.5 MG/3 ML INH INHALATION ×2 (02:20→08:10)
[2022-02-27 02:30] VITALS: PULSE 81; RESP 18
[2022-02-27 05:29] VITALS: BP 149/64; PULSE 72; RESP 20; TEMP 36.6; O2SAT 98
[2022-02-27 05:51] LABS: Basophils Percent Auto 0.3 % (0.2-1.2); Eosinophils Absolute Auto 0.2 K/mm3 (0-0.3); Eosinophils Percent Auto 2.1 % (0-4.4); Hematocrit 44.4 % (42.0-52.0); Hemoglobin 14.4 g/dL (14.0-18.0); Immature Granulocyte Absolute 0.14 K/mm3 (0.00-0.031); Lymphocytes Absolute Auto 2.29 K/mm3 (0.9-3.2); Lymphocytes Percent Auto 32.5 % (18.3-44.2); Mean Corpuscular HGB Conc 32.4 g/dl (32-36); Mean Corpuscular Hemoglobin 27.8 pg (26-34); Mean Corpuscular Volume 85.7 fl (80-100); Mean Platelet Volume 11.3 fl (7.4-10.4); Monocytes Absolute Auto 0.6 K/mm3 (0.1-0.6); Monocytes Percent Auto 8.8 % (2.6-8.5); Neutrophils Absolute Auto 3.8 K/mm3 (1.3-6.7); Neutrophils Percent Auto 54.3 % (45.5-73.1); Platelet Count Result 219 k/mm3 (150-375); Red Blood Count 5.18 M/mm3 (4.6-6.20); Red Cell Distribution Width 13.7 % (11.5-14.5); White Blood Count 7.1 K/mm3 (4.5-10.0)
[2022-02-27 06:02] LABS: Alanine Aminotransferase 93 U/L (4-50); Albumin Level 3.6 g/dL (3.5-5.1); Alkaline Phosphatase 66 U/L (38-126); Anion Gap 6 mmol/L (8-16); Aspartate Amino Transferase 70 U/L (17-59); Bilirubin,Total 0.4 mg/dL (0.2-1.3); Blood Urea Nitrogen 26 mg/dL (9-20); Calcium 8.3 mg/dL (8.4-10.2); Carbon Dioxide 26 mmol/L (22-30); Chloride 102 mmol/L (98-107); Estimated CRCL calculation 68 ml/min; Estimated Glomerular Filt Rate > 60; Glucose 185 mg/dL (65-110); Potassium 4.3 mmol/L (3.4-5.0); Sodium 134 mmol/L (137-145)
[2022-02-27 07:24] LABS: Glucose Point of Care 251 mg/dl (65-105)
[2022-02-27] MEDS: INSULIN ASPART (*BKC) 100 UNITS/ML SUB-Q ×2 (07:56→11:54)
[2022-02-27] MEDS: INSULIN ASPART (*BKC) 100 UNITS/ML 13 UNITS SUB-Q ×2 (07:56→11:53)
[2022-02-27 08:00] VITALS: PULSE 72
[2022-02-27] MEDS: DOCUSATE SODIUM 100 MG CAPSULE PO (08:00)
[2022-02-27] MEDS: amLODIPine BESYLATE 5 MG TABLET 10 MG PO (08:00)
[2022-02-27] MEDS: lisinopriL 20 MG TABLET PO (08:00)
[2022-02-27] MEDS: CLOPIDOGREL BISULFATE 75 MG TABLET PO (08:00)
[2022-02-27] MEDS: polyethylene glycoL 3350 17 GM POWD.PACK PO (08:00)
[2022-02-27] MEDS: FAMOTIDINE 20 MG TABLET PO (08:00)
[2022-02-27] MEDS: GABAPENTIN 100 MG CAPSULE PO ×2 (08:00→11:56)
[2022-02-27] MEDS: FUROSEMIDE 20 MG TABLET PO (08:00)
[2022-02-27] MEDS: PANTOPRAZOLE 40 MG TABLET PO (08:00)
[2022-02-27] MEDS: ASPIRIN 81 MG ENTERIC TABLET PO (08:00)
[2022-02-27] MEDS: ATORVASTATIN 40 MG TABLET PO (08:00)
[2022-02-27] MEDS: carvediloL 3.125 MG TABLET PO (08:00)
[2022-02-27] MEDS: ENOXAPARIN 40 MG/0.4 ML SYRINGE SUB-Q (08:01)
[2022-02-27] MEDS: AZELASTINE HCL NASAL 0.1% 137 MCG/SPR 30 ML BTL 1 SPRAY NASAL (08:01)
[2022-02-27] MEDS: FLUTICASONE PROPIONATE 0.05% NA SPR 16 GM BTL (*BKC) 1 SPRAY NASAL (08:01)
[2022-02-27 08:12] VITALS: PULSE 78; RESP 18
[2022-02-27] MEDS: UMECLIDINIUM BROMIDE 62.5 MCG ELLIPTA 1 PUFF INHALATION (08:15)
--- NOTE | 2022-02-27 08:15 | PCRCNOTE ---
tx done by [employer] student Yasemin Carmichael.
[2022-02-27 08:20] VITALS: PULSE 80; RESP 20
[2022-02-27 11:23] LABS: Glucose Point of Care 223 mg/dl (65-105)
--- NOTE | 2022-02-27 13:38 | P.DS_ITS ---
DS: Admitting Diagnosis Discharge Date 02/27/2022 1500 Admitting Diagnosis Hyperglycemia DS: Discharge Diagnosis Discharge Diagnosis (1) Diabetes type 2, uncontrolled: Status: Acute Assessment and Plan: * Patient's blood glucose initially in the emergency room is 549, patient reports he stopped all diabetic medications for approximately 2 months after compassionate release from [facility]. * Fasting Blood glucose 185 today * Hgb A1c 10.3 * Home Accu-Checks fasting in the morning, and before meals. Keep a diary of these blood sugars, and bring them to your appointment with your primary care provider. * Discharge with 50 units lantus at night & 17 units novolog 3 times a day with meals. * Was seen by a childbirth educator and a dietitian while here. (2) HTN (hypertension) with goal to be determined: Code(s): I10 - Essential (primary) hypertension Status: Acute Assessment and Plan: * Blood pressures in 150s today. * Currently on norvasc 10 daily, coreg 3.125 bid, and Lisinopril 20mg daily, we will continue this upon discharge. (3) COPD (chronic obstructive pulmonary disease): Code(s): J44.9 - Chronic obstructive pulmonary disease, unspecified Status: Acute Assessment and Plan: * Patient states he did take inhalers prior to running out * We will continue his home medications upon discharge * Close follow up with primary care. (4) ELOISA (acute kidney injury): Code(s): N17.9 - Acute kidney failure, unspecified Status: Acute Assessment and Plan: * Cr 1.2 today, ELOISA resolved during this stay. (5) Hip pain: Code(s): M25.559 - Pain in unspecified hip Status: Acute Assessment and Plan: * Reports terrible R hip pain, states waiting to see ortho but was told in [facility] he needs a hip replacement * Hip XR normal * Tylenol prn, patient will follow up for referral from primary care after discharge. (6) Diabetic neuropathy: Code(s): E11.40 - Type 2 diabetes mellitus with diabetic neuropathy, unspecified Status: Acute Assessment and Plan: * Started gabapentin during stay here, pt reports significant improvement. * We will continue after discharge. (7) Constipation: Code(s): K59.00 - Constipation, unspecified Status: Acute Assessment and Plan: * reports last BM in 11 days, Patient received colace, miralax, and enema, resulting in stooling. * Patient feels much better. * Will continue colace and miralax upon discharge. (8) Urinary incontinence: Code(s): R32 - Unspecified urinary incontinence Status: Acute Assessment and Plan: * Continue Flomax for BPH (9) Transaminitis: Code(s): R74.01 - Elevation of levels of liver transaminase levels Status: Acute Assessment and Plan: * AST/ALT elevations during stay. 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 DS: Summary Hospital Course Reason for hospitalization: Hyperglycemia Hospital Course: See above for hospital course. Status at Discharge Overall status at discharge: patient is progressing back to baseline Time Spent with Patient Time attestation: Total time spent providing and/or coordinating discharge services: 35
--- NOTE | 2022-02-27 13:38 | PM.DS ---
DS: Admitting Diagnosis Discharge Date 02/27/2022 1500 Admitting Diagnosis Hyperglycemia DS: Discharge Diagnosis Discharge Diagnosis (1) Diabetes type 2, uncontrolled: Status: Acute Assessment and Plan: Patient's blood glucose initially in the emergency room is 549, patient reports he stopped all diabetic medications for approximately 2 months after compassionate release from [facility]. Fasting Blood glucose 185 today Hgb A1c 10.3 Home Accu-Checks fasting in the morning, and before meals. Keep a diary of these blood sugars, and bring them to your appointment with your primary care provider. Discharge with 50 units lantus at night & 17 units novolog 3 times a day with meals. Was seen by a nutrition educator and a dietitian while here. (2) HTN (hypertension) with goal to be determined: Code(s): I10 - Essential (primary) hypertension Status: Acute Assessment and Plan: Blood pressures in 150s today. Currently on norvasc 10 daily, coreg 3.125 bid, and Lisinopril 20mg daily, we will continue this upon discharge. (3) COPD (chronic obstructive pulmonary disease): Code(s): J44.9 - Chronic obstructive pulmonary disease, unspecified Status: Acute Assessment and Plan: Patient states he did take inhalers prior to running out We will continue his home medications upon discharge Close follow up with primary care. (4) ELOISA (acute kidney injury): Code(s): N17.9 - Acute kidney failure, unspecified Status: Acute Assessment and Plan: Cr 1.2 today, ELOISA resolved during this stay. (5) Hip pain: Code(s): M25.559 - Pain in unspecified hip Status: Acute Assessment and Plan: Reports terrible R hip pain, states waiting to see ortho but was told in [facility] he needs a hip replacement Hip XR normal Tylenol prn, patient will follow up for referral from primary care after discharge. (6) Diabetic neuropathy: Code(s): E11.40 - Type 2 diabetes mellitus with diabetic neuropathy, unspecified Status: Acute Assessment and Plan: Started gabapentin during stay here, pt reports significant improvement. We will continue after discharge. (7) Constipation: Code(s): K59.00 - Constipation, unspecified Status: Acute Assessment and Plan: reports last BM in 11 days, Patient received colace, miralax, and enema, resulting in stooling. Patient feels much better. Will continue colace and miralax upon discharge. (8) Urinary incontinence: Code(s): R32 - Unspecified urinary incontinence Status: Acute Assessment and Plan: Continue Flomax for BPH (9) Transaminitis: Code(s): R74.01 - Elevation of levels of liver transaminase levels Status: Acute Assessment and Plan: AST/ALT elevations during stay. Patient reports history of Hepatitis B with prior IV drug use, which he received treatment for Hep C reactive, pending RNA PCR, will follow up with these. DS: Summary Hospital Course Reason for hospitalization: Hyperglycemia Hospital Course: See above for hospital course. Status at Discharge Overall status at discharge: patient is progressing back to baseline Time Spent with Patient Time attestation: Total time spent providing and/or coordinating discharge services: 35 Time spent: Greater than 30 minutes Exam Narrative: GENERAL APPEARANCE: Alert and oriented x 3, in no apparent distress. HEENT: PERRL, EOMI. Sclerae anicteric. Moist mucous membranes. NECK: Supple. No JVD or obvious carotid bruits. RESPIRATORY: Respirations are nonlabored. Breath sounds are equal and clear bilaterally. No wheezes, Rhonchi, or rales. CARDIOVASCULAR: Regular rate and rhythm with normal S1-S2. No murmurs, gallops, or rubs. GASTROINTESTINAL: Soft, flat, and benign. No mass, tenderness, guarding, or rebound. No organomegaly or
== END 2022-02-27 14:50 | disposition home or self-care (01) | DRG 638 ==
LOC: ANHED 20:11 → ANHIMU 20:30 → ANH3MED 02-24 10:31
PROVIDERS: Emergency Medicine; Nurse Practitioner Adult Health; Physician Assistant; Student in an Organized Health Care Education/Training Program; Admitting Provider Internal Medicine; Emergency Provider Nurse Practitioner Family; Visit Provider Internal Medicine
DX: E11.65 Type 2 diabetes mellitus with hyperglycemia (principal); N17.9 Acute kidney failure, unspecified; J44.1 Chronic obstructive pulmonary disease with (acute) exacerbation; Z91.14 Patient's other noncompliance with medication regimen; I10 Essential (primary) hypertension; M25.559 Pain in unspecified hip; E11.42 Type 2 diabetes mellitus with diabetic polyneuropathy; K59.00 Constipation, unspecified; Z20.822 Contact with and (suspected) exposure to COVID-19; N40.1 Benign prostatic hyperplasia with lower urinary tract symptoms; R32 Unspecified urinary incontinence; I73.9 Peripheral vascular disease, unspecified; E78.5 Hyperlipidemia, unspecified; I25.10 Atherosclerotic heart disease of native coronary artery without angina pectoris; F17.210 Nicotine dependence, cigarettes, uncomplicated; Z86.19 Personal history of other infectious and parasitic diseases; Z95.5 Presence of coronary angioplasty implant and graft; Z95.1 Presence of aortocoronary bypass graft; Z85.53 Personal history of malignant neoplasm of renal pelvis
CPT/HCPCS: 36415; 71046; 73502; 74018; 80048; 80053; 80074; 81001; 82947; 82948; 83036; 83735; 83880; 85025; 87502; 87522; 93005; 94640; 96374; 96375; 99285; A9270; C9803; J0360; J1650; J1815; J2930; J7030; J7512; U0003; U0005

== ENCOUNTER 2022-04-23 19:08 | Inpatient (IN) | payer MEDICARE, MEDICAID, SELFPAY ==
[2022-04-23] VITALS (10 sets, daily range): BP systolic 170–198; BP diastolic 80–86; PULSE 94–105; RESP 17–24; TEMP 36.3–36.4; O2SAT 90–98
--- NOTE | ~2022-04-23 | XR_ITS ---
EXAMINATION: XR chest 1V portable INDICATION: Cough and shortness of breath TECHNIQUE: Portable AP chest at 1935 hours COMPARISON: 02/22/2022 FINDINGS: Cardiomegaly is noted. There is a mild diffuse interstitial pattern. No pleural effusion or pneumothorax. Median sternotomy wires and mediastinal surgical clips are seen, likely from prior cor onary artery bypass grafting. IMPRESSION: 1. Cardiomegaly. 2. Mild diffuse interstitial pattern which could reflect pulmonary edema versus pneumonia. Reviewed, dictated and finalized at location F.
--- NOTE | ~2022-04-23 | XR_ITS ---
XR chest 2V DATE: 04/28/2022 08:58 INDICATION: Wheezing TECHNIQUE: PA and lateral views COMPARISON: 04/23/2022 portable AP chest 02/22/2022 PA and lateral chest FINDINGS: Status post sternotomy and probable coronary bypass graft surgery. Borderline heart size. T here is thoracic aortic calcification. No hilar or mediastinal enlargement. Minimal atelectasis is suggested at the lung bases. No pulmonary infiltrate or consolidation is noted otherwise. No pulmonary vascular congestion or pleural effusion or pneumothorax is detected. Diffuse osteopenia. IMPRESSION: Status post sternotomy and probable CABG Borderline heart size Aortic atherosclerosis Possible minimal atelectasis at the lung bases Osteopenia Reviewed, dictated and finalized at location B.
--- NOTE | ~2022-04-23 | CT_ITS ---
EXAMINATION: CT abdomen pelvis w con DATE: 04/26/2022 15:57 INDICATION: abd pain TECHNIQUE: Computed tomography (CT) of the abdomen and pelvis was performed with 100 mL Omnipaque-300 intravenous contrast. Automated exposure control and iterative reconstruction technique were employe d. The dose-length product was 1356.29 mGy-cm. COMPARISON: None. FINDINGS: Lower thorax: Heavy coronary artery calcification. Liver: Fatty infiltration. Biliary/Gallbladder: Gallbladder is normal. No bile duct dilation. Pancreas: No mass or duct dilation. Mild fatty atrophy. Spleen: Normal. Adrenals:No mass. Kidneys: 4.6 cm right midpole heterogeneous and hypoenhancing mass, with adjacent fat versus perineph sarkis inflammatory change. GI tract: No small or large bowel dilation. Normal appendix. Mesentery/Peritoneum: No ascites, mass, or free air. Retroperitoneum: No mass. Atherosclerotic abdominal aortic and/or arterial calcifications. Pelvis: Bladder distention and wall thickening likely on the basis of chronic outlet obstruction from prostatomegaly. Soft Tissues: Soft tissues and body wall unremarkable. Bones: No acute osseous finding. Lumbar fusion. IMPRESSION: Heterogeneous, hypoenhancing right renal lesion, may represent residual or recurrent tumor with adjac ent fat packing, bland post surgical change, or focal infarct/infection. Correlate with history and p rior imaging if available. Reviewed, dictated and finalized at location K. IMPRESSION: Heterogeneous, hypoenhancing right renal lesion, may represent residual or recu rrent tumor with adjacent fat packing, bland post surgical change, or focal inf arct/infection. Correlate with history and prior imaging if available.
--- NOTE | ~2022-04-23 | XR_ITS ---
EXAMINATION: XR abdomen/kub 1V INDICATION: Abdominal pain TECHNIQUE: Supine views of the abdomen were obtained on 2 radiographs. COMPARISON: 02/23/2022 FINDINGS: There is a moderate volume of gas in the transverse colon. No free intraperitoneal gas is i dentified. The bowel gas pattern is nonspecific. Gas is seen in the distal colon. Endoluminal vascula r stents are noted in the proximal leg. Changes of anterior and posterior fusion are present in the l umbar spine. IMPRESSION: 1. Nonspecific bowel gas pattern. Reviewed, dictated and finalized at location A.
--- NOTE | 2022-04-23 19:30 | ECG_ITS ---
Measurements Intervals [place] Rate: 97 P: 53 TN: 156 QRS: 91 QRSD: 94 T: 59 QT: 346 QTc: 441 Interpretive Statements SINUS RHYTHM BORDERLINE RIGHT AXIS DEVIATION [QRS AXIS > 90] POSSIBLE ANTERIOR MYOCARDIAL INFARCTION , OLD COMPARED TO ECG 02/22/2022 16:04:13 NO SIGNIFICANT CHANGES Electronically Signed On 04-24-2022 16:42:36 CDT by Taurus Maria M.D.
--- NOTE | 2022-04-23 19:31 | ED.SOB ---
HPI - SOB/Dyspnea General Chief Complaint: Shortness of Breath/Dyspnea Stated Complaint: SOB Time Seen by Provider: 04/23/22 19:25 History of Present Illness HPI Narrative: Pt presents with worsening SOB over the last 3 days. Pt has occasional productive cough but denies fever. Pt has history of COPD and asthma but says he doesn't' have enough medicine for his nebulizer machine. Pt says machine not helping. Related Data Home Medications Medication Instructions Recorded Confirmed adalimumab 40 mg/0.4 mL 40 mg subcut [id number] 02/22/22 02/22/22 subcutaneous syringe kit Allergies Allergy/AdvReac Type Severity Reaction Status Date / Time No Known Allergies Allergy Verified 04/23/22 19:16 Review of Systems Review of Systems: All systems reviewed & are unremarkable except as noted in HPI and below PMFSH Past Medical History Medical History (Updated 04/23/22 @ 21:31 by Lorie Martin III, DO) COPD (chronic obstructive pulmonary disease) Coronary artery disease Diabetes type 2, uncontrolled Dyslipidemia Hepatitis C HTN (hypertension) with goal to be determined Peripheral arterial disease Renal cell carcinoma Surgical History Surgical History (Updated 02/22/22 @ 21:02 by Adela Hollis APRN) History of lumbosacral spine surgery Hx of CABG Status post peripheral artery angioplasty with insertion of stent Social History Social History (Updated 02/22/22 @ 21:03 by Adela Hollis APRN) Smoking packs per day: 1 Smoking cigarettes per day: 20.0 Years smoked: 30 Smoking pack-years: 30.00 Smoking status: Former smoker Tobacco type: cigarettes Alcohol intake: former Substance use: former Substance use type: crack/cocaine Spiritual care concerns: No Exam Const: General: no acute distress Nutritional Appearance: obese Orientation/consciousness: patient oriented x3 Limitations: no limitations HENMT: Head: normal to inspection Mouth: Yes Normal oral and palatal mucosa present Eyes: Conjunctivae: conjunctivae normal EOM: EOMs intact bilaterally Neck: Neck: normal visual inspection and no meningeal signs Resp: Effort & Inspection: tachypneic and uses accessory muscles Auscultation: wheezes (all gann) expiratory wheezes and throughout Cardio: Rate: tachycardic Rhythm: regular rhythm GI: GI Palp: Yes Soft to palpation Auscultation: normal bowel sounds Skin: General skin exam: normal color Wounds: no wounds Neuro: General: patient oriented x3 Cranial nerves: Yes Nystagmus not present Speech: normal speech Gait exam (Neuro): Normal gait present Extrem: General: edema bilateral Psych: Mental Status: mental status grossly normal Affect: normal affect Attitude: cooperative Course Vital Signs Vital signs: Vital Signs Temperature 97.4 F L 04/23/22 19:12 Pulse Rate 97 04/23/22 19:12 Respiratory Rate 22 H 04/23/22 19:12 Blood Pressure 198/80 H 04/23/22 19:12 Pulse Oximetry 98 04/23/22 19:12 Temperature 97.4 F L 04/23/22 19:12 Pulse Rate 104 H 04/23/22 22:16 Respiratory Rate 17 04/23/22 22:16 Blood Pressure 198/80 H 04/23/22 19:12 Pulse Oximetry 91 04/23/22 22:19 Oxygen Delivery Room Air 04/23/22 22:19 MDM - SOB/Dyspnea Lab Data Result diagrams: 04/23/22 20:08 04/23/22 20:08 Labs: Lab Results 04/23/22 04/23/22 04/23/22 Range/Units 20:08 20:08 20:08 WBC 6.3 (4.5-10.0) K/mm3 RBC 4.65 (4.6-6.20) M/mm3 Hgb 13.2 L (14.0-18.0) g/dL Hct 42.1 (42.0-52.0) % MCV 90.5 (80-100) fl MCH 28.4 (26-34) pg MCHC 31.4 L (32-36) g/dl RDW 16.0 H (11.5-14.5) % Plt Count 197 (150-375) k/mm3 MPV 10.8 H (7.4-10.4) fl Immature Gran % (Auto) 0.3 (0-0.5) % Neut % (Auto) 55.3 (45.5-73.1) % Lymph % (Auto) 23.2 (18.3-44.2) % [place] % (Auto) 8.8 H (2.6-8.5) % Eos % (Auto) 11.6 H (0-4.4) % Baso % (Auto) 0.8 (0.2-1.2) % Lymph
[2022-04-23] MEDS: ALBUTEROL SULFATE NEB 2.5 MG/3 ML INH 5 MG INHALATION (19:44)
[2022-04-23] MEDS: IPRATROPIUM BR 0.02% INH SOLN 0.5 MG/2.5 ML VIAL INHALATION (19:45)
[2022-04-23] MEDS: methylPREDNISolone SOD SUCC 125 MG VIAL IV PUSH (20:03)
--- NOTE | 2022-04-23 20:15 | PC.NURSE ---
called and talked to yung in lab. added on dat at 20:15
[2022-04-23 20:19] LABS: Basophils Absolute Auto 0.1 K/mm3 (0.0-0.1); Basophils Percent Auto 0.8 % (0.2-1.2); Eosinophils Absolute Auto 0.7 K/mm3 (0-0.3); Eosinophils Percent Auto 11.6 % (0-4.4); Hematocrit 42.1 % (42.0-52.0); Hemoglobin 13.2 g/dL (14.0-18.0); Immature Granulocyte Absolute 0.02 K/mm3 (0.00-0.031); Immature Granulocyte Percent A 0.3 % (0-0.5); Lymphocytes Absolute Auto 1.46 K/mm3 (0.9-3.2); Lymphocytes Percent Auto 23.2 % (18.3-44.2); Mean Corpuscular HGB Conc 31.4 g/dl (32-36); Mean Corpuscular Hemoglobin 28.4 pg (26-34); Mean Corpuscular Volume 90.5 fl (80-100); Mean Platelet Volume 10.8 fl (7.4-10.4); Monocytes Absolute Auto 0.6 K/mm3 (0.1-0.6); Monocytes Percent Auto 8.8 % (2.6-8.5); Neutrophils Absolute Auto 3.5 K/mm3 (1.3-6.7); Neutrophils Percent Auto 55.3 % (45.5-73.1); Platelet Count Result 197 k/mm3 (150-375); Red Blood Count 4.65 M/mm3 (4.6-6.20); White Blood Count 6.3 K/mm3 (4.5-10.0)
[2022-04-23 20:30] LABS: Lactic Acid Reflex 3.3 mmol/L (0.7-2.0)
[2022-04-23 20:31] LABS: Alanine Aminotransferase 41 U/L (6-50); Alkaline Phosphatase 87 U/L (38-126); Anion Gap 6 mmol/L (8-16); Aspartate Amino Transferase 37 U/L (17-59); Bilirubin,Total 0.4 mg/dL (0.2-1.3); Blood Urea Nitrogen 18 mg/dL (9-20); Calcium 8.7 mg/dL (8.4-10.2); Carbon Dioxide 30 mmol/L (22-30); Chloride 102 mmol/L (98-107); Estimated CRCL calculation 49 ml/min; Estimated Glomerular Filt Rate 41; Glucose 355 mg/dL (65-110); Magnesium 1.7 mg/dL (1.6-2.3); Potassium 4.3 mmol/L (3.4-5.0); Sodium 138 mmol/L (137-145)
[2022-04-23 20:43] LABS: NT Pro B Type Natriuretic Pept 469 pg/mL (5-100); Troponin I 0.014 ng/mL (0.000-0.034)
[2022-04-23] MEDS: ALBUTEROL SULFATE NEB 2.5 MG/3 ML INH 10 MG INHALATION (21:13)
[2022-04-23 21:33] LABS: SARS-CoV-2 RNA PCR Negative
[2022-04-23 21:34] LABS: Prothrombin Time 12.7 Seconds (11.1-14.7)
[2022-04-23 21:35] LABS: Partial Thromboplastin Time 26.7 SECONDS (22.3-36.8)
[2022-04-23] MEDS: INSULIN HUMAN REGULAR (*BKC) 100 UNITS/ML 10 UNITS IV PUSH (21:53)
--- NOTE | 2022-04-23 23:10 | ADMGEN ---
This patient, Flavio Vigil, was admitted to Medical Room 340-01. Patient/family oriented to hospital policies and general routines including ID bracelet, bed and alarms, visiting hours, pain management, procedures, bathroom and other care routines, personal items, smoking policy, room service/diet, and visiting hours. Information on how to activate the Rapid Response Team has been discussed. Patient/Family are encouraged to report perceived risks to care and to ask questions if they do not understand what they are told or what they should do.
[2022-04-23 23:16] LABS: Reflex Lactic Acid Yes or No Add Lactic
[2022-04-24] VITALS (20 sets, daily range): BP systolic 111–134; BP diastolic 42–64; PULSE 87–108; RESP 17–22; TEMP 36.5–37; O2SAT 92–98; BMI 40.1
--- NOTE | 2022-04-24 | ECHO_ITS ---
Patient Info Name: Flavio Vigil Age: 61 years : 1960 Gender: Male Ht: 67 in Wt: 256 lbs BSA: 2.40 m2 HR: 93 bpm BP: 134 / 61 mmHg Heart Rhythm: Sinus Rhythm Exam Date: 04/24/2022 10:43 AM Exam Location: [facility] Patient Status: Inpatient Admit Date: 04/24/2022 Staff Ordering Physician: Alfred Mahmood DO Boom Supervisor: Oh Livingston, RDDIANE, RT Attending Provider: Alfred Mahmood DO Exam Type: CA echo dop color flow w con Study Info Indications I50.9 - Heart failure, unspecified R06.02 - Shortness of breath Complete two-dimensional, color flow and Doppler transthoracic echocardiogram is performed with contrast to opacify the left ventricle and to improve the deliniation of the left ventricle endocardial borders. Summary 1. Very poor image quality until definity contrast was injected. 2. Left ventricular systolic function is normal, estimated at 50-55%. 3. The left ventricular diastolic function is grade I diastolic dysfunction. 4. Normal right ventricular size and contractility. 5. Poorly visualized valves. 6. Doppler evidence of a very mild aortic transvalvular gradient, no significant stenosis. Left Ventricle Left ventricular chamber dimension is normal. Left ventricular systolic function is normal, estimated at 50-55%. The left ventricular diastolic function is grade I diastolic dysfunction. Very poor image quality until definity contrast was injected. Right Ventricle Right ventricular chamber dimension is normal. Left Atria Left atrial chamber dimension is not well visualized. Right Atria Right atrial chamber dimension is not well visualized. Aortic Valve The aortic valve is not well visualized. Pulmonic Valve The pulmonic valve is not well visualized. Mitral Valve The mitral valve has not well visualized and normal leaflets. Tricuspid Valve The tricuspid valve leaflets are not well visualized. Pericardium/Pleural The pericardium appears normal. Aorta The aortic root size at the sinus of Valsalva is normal. Left Ventricular Outflow Tract Name Value Normal LVOT Doppler LVOT Peak Gradient 4 mmHg LVOT Mean Gradient 2 mmHg LVOT VTI 20.49 cm LVOT VTI/AV VTI Ratio 0.54 Mitral Valve Name Value Normal MV Doppler MV Decel Mckinley 460.65 cm/s2 MV PHT 0 s MV Area (PHT) 3.62 cm2 4.00-5.00 MV Diastolic Function MV E Peak Velocity 96.49 cm/s MV A Peak Velocity 129.97 cm/s MV E/A 0.74 MV Decel Time 0 s Aortic Valve Name Value Normal ------
[2022-04-24 00:29] LABS: Glucose Point of Care 362 mg/dl (65-105)
--- NOTE | 2022-04-24 01:01 | PM.IMHP ---
H&P: HPI History of Present Illness Date/Time: 04/24/22 01:01 Chief Complaint: SOB Narrative: Greater than 30 minutes spent reviewing chart, evaluating, treating, counseling patient. Anticipate greater than 48 hours of admission, will admit as inpatient. 61-year-old male past medical history of history of IV drug use (quit 6 years ago), CAD status post CABG x5, type 2 diabetes on insulin, history of hepatitis-B, renal cell carcinoma (patient reports intervention?), history of PAD status post bilateral iliac stents, hypertension/hyperlipidemia, history of psoriasis previously on Humira. Presents with shortness of breath for 2 weeks. Patient reports progressive shortness of breath, with sputum production of reina color that is very thick. Admits to wheezing. Admits to worsening swelling and lower extremities. States he has gained 12 lb in the last month. Questionable orthopnea. Denies fevers/chills, chest pain, palpitations, nausea/vomiting, diarrhea/constipation, dysuria, hematuria. Patient reports dizziness/lightheadedness when raising arms above his head. Admits to worsening neuropathy and lower extremities as well as numbness and tingling. Patient was recently released from detention November 2021. In ED, patient is hypertensive 190/80s, tachypneic, heart rate in 90s. Afebrile. White count normal. Troponin normal. BNP 469. Creatinine 1.7 (baseline creatinine 1.2). Initial glucose 362. Lactic 3.3. Blood cultures drawn, patient given multiple nebulizer treatments, Solu-Medrol 125 given. Review of Systems Review of Systems: Ten point review of systems reviewed, negative unless otherwise stated in HPI [facility] Past Medical History Medical History (Updated 04/24/22 @ 01:24 by Alfred Mahmood DO) COPD (chronic obstructive pulmonary disease) Coronary artery disease Diabetes type 2, uncontrolled Dyslipidemia Hepatitis C HTN (hypertension) with goal to be determined Peripheral arterial disease Renal cell carcinoma Surgical History Surgical History (Updated 02/22/22 @ 21:02 by Adela Hollis APRN) History of lumbosacral spine surgery Hx of CABG Status post peripheral artery angioplasty with insertion of stent Social History Social History (Updated 02/22/22 @ 21:03 by Adela Hollis APRN) Smoking packs per day: 1 Smoking cigarettes per day: 20.0 Years smoked: 30 Smoking pack-years: 30.00 Smoking status: Former smoker Tobacco type: cigarettes Alcohol intake: former Substance use: former Substance use type: crack/cocaine Spiritual care concerns: No Meds Home Medications and Allergies Home Medications Medication Instructions Recorded Confirmed Type adalimumab 40 mg/0.4 mL 40 mg subcut [id number] 02/22/22 04/24/22 History subcutaneous syringe kit albuterol sulfate 2.5 mg/3 mL 2.5 mg (3 mL) inhalation Q4H 30 02/27/22 04/24/22 Rx (0.083 %) solution for nebulization days #540 mL albuterol sulfate 90 mcg/actuation 2 puff inhalation Q4-6H PRN 02/27/22 04/24/22 Rx aerosol inhaler Shortness Of Breath 30 days #1 inh amlodipine 10 mg tablet 10 mg PO DAILY 30 days #30 tabs 02/27/22 04/24/22 Rx aspirin 81 mg tablet,delayed 81 mg PO DAILY 30 days #30 tabs 02/27/22 04/24/22 Rx release carvedilol 3.125 mg tablet (Coreg) 3.125 mg PO BID 30 days #60 tabs 02/27/22 04/24/22 Rx clopidogrel 75 mg tablet 75 mg PO DAILY 30 days #30 tabs 02/27/22 04/24/22 Rx docusate sodium 100 mg capsule 100 mg PO Q12HR 30 days #60 caps 02/27/22 04/24/22 Rx famotidine 20 mg tablet 20 mg PO DAILY 30 days #30 tabs 02/27/22 04/24/22 Rx fluticasone propionate 50 1 spray intranasal DAILY 30 days 02/27/22 04/24/22 Rx mcg/actuation nasal #1 applic spray,suspension furosemide 20 mg tablet 20 mg PO DAILY 30 days #30 tabs 02/27/22 04/24/22 Rx gabapentin 100 mg capsule 100 mg PO TID 30 days #90 caps 02/27/22 04/24/22 Rx insulin glargine 100 unit/mL 40 units (0.4 mL) subcut HS 30 02/27/22 04/24/22 Rx subcutaneous solution (
[2022-04-24] MEDS: IPRATROPIUM BR 0.02% INH SOLN 0.5 MG/2.5 ML VIAL INHALATION ×4 (01:32→20:03)
[2022-04-24] MEDS: ALBUTEROL SULFATE NEB 2.5 MG/3 ML INH 5 MG INHALATION ×4 (01:32→20:03)
[2022-04-24] MEDS: INSULIN GLARGINE (*BKC) 100 UNITS/ML 15 UNITS SUB-Q (01:45)
[2022-04-24] MEDS: NITROGLYCERIN OINTMENT 1 INCH DOSE TRANSDERM (01:45)
[2022-04-24] MEDS: FUROSEMIDE INJ 40 MG/4 ML VIAL IV PUSH (01:45)
[2022-04-24] MEDS: MELATONIN 5 MG TABLET PO ×2 (01:46→20:55)
[2022-04-24] MEDS: INSULIN HUMAN REGULAR (*BKC) 100 UNITS/ML 15 UNITS IV PUSH (01:53)
[2022-04-24 05:42] LABS: Basophils Percent Auto 0.4 % (0.2-1.2); Eosinophils Percent Auto 0.2 % (0-4.4); Hemoglobin 12.8 g/dL (14.0-18.0); Immature Granulocyte Absolute 0.03 K/mm3 (0.00-0.031); Immature Granulocyte Percent A 0.5 % (0-0.5); Lymphocytes Absolute Auto 0.42 K/mm3 (0.9-3.2); Lymphocytes Percent Auto 7.6 % (18.3-44.2); Mean Corpuscular HGB Conc 31.2 g/dl (32-36); Mean Corpuscular Volume 89.7 fl (80-100); Mean Platelet Volume 11.4 fl (7.4-10.4); Monocytes Absolute Auto 0.1 K/mm3 (0.1-0.6); Monocytes Percent Auto 1.1 % (2.6-8.5); Neutrophils Percent Auto 90.2 % (45.5-73.1); Platelet Count Result 200 k/mm3 (150-375); Red Blood Count 4.57 M/mm3 (4.6-6.20); Red Cell Distribution Width 15.7 % (11.5-14.5); White Blood Count 5.5 K/mm3 (4.5-10.0)
[2022-04-24 05:56] LABS: Lactic Acid Reflex 5.1 mmol/L (0.7-2.0)
[2022-04-24 06:01] LABS: Alanine Aminotransferase 45 U/L (6-50); Albumin Level 4.1 g/dL (3.5-5.1); Alkaline Phosphatase 89 U/L (38-126); Anion Gap 13 mmol/L (8-16); Aspartate Amino Transferase 31 U/L (17-59); Bilirubin,Total 0.3 mg/dL (0.2-1.3); Blood Urea Nitrogen 25 mg/dL (9-20); Calcium 8.7 mg/dL (8.4-10.2); Carbon Dioxide 21 mmol/L (22-30); Chloride 99 mmol/L (98-107); Estimated CRCL calculation 53 ml/min; Estimated Glomerular Filt Rate 44; Glucose 489 mg/dL (65-110); Potassium 4.7 mmol/L (3.4-5.0); Sodium 133 mmol/L (137-145)
[2022-04-24] MEDS: methylPREDNISolone SOD SUCC 125 MG VIAL 80 MG IV PUSH (06:06)
[2022-04-24] MEDS: HEPARIN SODIUM 5,000 UNITS/ML VIAL 5000 UNITS SUB-Q ×3 (06:06→20:54)
[2022-04-24 06:20] LABS: Thyroid Stimulating Hormone 0.374 uIU/mL (0.465-4.680)
[2022-04-24 06:31] LABS: HIV 1/2 Ab P24 Ag Result Negative (Negative)
[2022-04-24 07:32] LABS: Glucose Point of Care > 500 mg/dl (65-105)
[2022-04-24] MEDS: INSULIN ASPART (*BKC) 100 UNITS/ML 35 UNITS SUB-Q (09:06)
[2022-04-24] MEDS: amLODIPine BESYLATE 5 MG TABLET 10 MG PO (09:13)
[2022-04-24] MEDS: ASPIRIN 81 MG ENTERIC TABLET PO (09:14)
[2022-04-24] MEDS: TAMSULOSIN HCL 0.4 MG CAPSULE PO (09:14)
[2022-04-24] MEDS: CLOPIDOGREL BISULFATE 75 MG TABLET PO (09:14)
[2022-04-24] MEDS: GABAPENTIN 300 MG CAPSULE PO ×3 (09:15→16:35)
[2022-04-24] MEDS: PANTOPRAZOLE 40 MG TABLET PO (09:15)
[2022-04-24] MEDS: ATORVASTATIN 40 MG TABLET PO (09:15)
[2022-04-24] MEDS: polyethylene glycoL 3350 17 GM POWD.PACK PO (09:16)
[2022-04-24] MEDS: carvediloL 3.125 MG TABLET PO ×2 (09:16→20:55)
[2022-04-24] MEDS: PERFLUTREN LIPID MICROSPHERES 1.5 ML VIAL DILUTED TO 10 ML TOTAL VOLUME IV PUSH (10:11)
--- NOTE | 2022-04-24 10:12 | IVDEFINITY ---
Prior to administration of IV Definity the patient was educated on the risks and benefits of the imaging enhancing agent including potential adverse side effects. The patient verbalized understanding. Allergies were verified. No exclusion criteria were identified and at least one of the following inclusion criteria were met: 1) physician request, 2) patient technically difficult to image (per the [place] [employer] of Echocardi[employer] guidelines of two or more segments not discernable within the apical view), or 3) questionable left ventricular function. ?
[2022-04-24 10:45] LABS: Alveolar/Arterial O2 Gradient 38.7 mmHg; Fractional Inspired Oxygen 21 %; HCO3 ABG 20.4 mEq/l (22.0-26.0); Oxygen Content ABG 18.2 %vol (16.0-22.0); Oxygen Saturation ABG 93.7 % (95.0-100.0); Oxyhemoglobin 92.3 % THb (90.0-100.0); PCO2 ABG 35.2 mmHg (35.0-45.0); PO2 ABG 68.9 mmHg (80.0-100.0); PO2 FiO2 Ratio Arterial Blood 3.28 %; pH ABG 7.381 (7.350-7.450)
[2022-04-24 10:47] LABS: Device ROOM AIR; Modified Allen's Test Pass; Site Drawn RIGHT RADIAL
[2022-04-24 11:31] LABS: Glucose Point of Care 442 mg/dl (65-105)
[2022-04-24 11:32] LABS: Appearance Urine Clear (Clear); Bilirubin Urine Negative (Negative); Color Urine Yellow (Yellow); Glucose Urine UA 3+ mg/dL (Negative); Ketones Urine Negative (Negative); Leukocyte Esterase Ur Negative LEU/UL (Negative); Nitrate Urine Negative (Negative); Protein Urine Negative (Negative); Urobilinogen Urine 0.2 mg/dL (<2.0); pH Urine 5.5 (5.0-9.0)
[2022-04-24 11:38] LABS: Add Urine Microscopic? YES; Blood Urine Trace-Intact (Negative); RBC Urine 0-2 /hpf (0-2); Squamous Epithelial Cell Urine Rare /hpf (Few); WBC Urine 0-3 /hpf
--- NOTE | 2022-04-24 11:56 | PM.IMPN ---
Progress Note: A&P Assessment and Plan (1) Acute exacerbation of chronic obstructive pulmonary disease: Code(s): J44.1 - Chronic obstructive pulmonary disease with (acute) exacerbation Status: Acute Assessment and Plan: Increased wheezing, dyspnea and change in sputum production quantity, consistency and color. Patient was incarcerated until November of this year. Additionally, he is poorly controlled diabetic and was hospitalized in January at this facility for COPDAE. -Continue Solu-Medrol 60 t.i.d., duonebs scheduled, mucinex PO BID. -Add empiric Levaquin 750 mg PO daily. Patient has risk factors for pseudomonas infection, as described above. -Check ABG x1. -Obtain sputum culture. -Check MRSA nasal swab to assess risk for MRSA pneumonia. -He is on Spiriva at home, but has been using his albuterol inhaler 100 times in the last 2 weeks. He would likely benefit from triple therapy LAMA, LABA, ICS. 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 (2) Shortness of breath: Code(s): R06.02 - Shortness of breath Status: Acute Assessment and Plan: COPD exacerbation management as above. Cannot rule out heart failure. Will check echo. Will give Lasix 40 IV once, monitor creatinine. pro-BNP 469 (3) Constipation: Code(s): K59.00 - Constipation, unspecified Status: Acute Assessment and Plan: Patient reports he has not had a bowel movement in about 7-8 days. -Mag citrate PO x1. -Continue MiraLax daily and senna S (4) Diabetic neuropathy: Code(s): E11.40 - Type 2 diabetes mellitus with diabetic neuropathy, unspecified Status: Acute Assessment and Plan: Uncontrolled. Blood glucose >300 in ED and >500 this morning following IV steroids. Home regimen is reported to be 50 units lantus at HS and Novolog 20-30 units (including sliding scale) with meals. Patient is being treated with steroids. Last A1c 01/2022 was 10.3% -Check UA for urine glucose and ketones. -Gabapentin increased to 300 t.i.d. for c/o of peripheral neuropathy. (5) ELOISA (acute kidney injury): Code(s): N17.9 - Acute kidney failure, unspecified Status: Acute Assessment and Plan: Unclear etiology at this time. Presumed some underlying CKD due to HTN and uncontrolled diabetes. -GFR 1.6, BUN 25, serum Cr 1.6. -Monitor I/O. -Monitor labs and control for chronic disease as above. (6) Dyslipidemia: Code(s): E78.5 - Hyperlipidemia, unspecified Status: Chronic Assessment and Plan: -Continue Lipitor (7) Peripheral arterial disease: Code(s): I73.9 - Peripheral vascular disease, unspecified Status: Chronic Assessment and Plan: Continue ASA 81, Plavix, statin. Given symptoms of dizziness/lightheadedness while raising arms above head, subclavian steal syndrome on differential. He reports known carotid artery disease. He has seen vascular services outpatient and should have further evaluation. (8) Coronary artery disease: Code(s): I25.10 - Atherosclerotic heart disease of [place] coronary artery without angina pectoris Status: Chronic Assessment and Plan: -Continue aspirin and statin, Plavix. -echo pending -TSH low, check free T4. (9) HTN (hypertension) with goal to be determined: Code(s): I10 - Essential (primary) hypertension Status: Chronic Assessment and Plan: Patient given nitro sublingual half-inch. -Continue Norvasc 10, Coreg 3.125 b.i.d.. -Hold lisinopril given ELOISA. -Labetalol p.r.n. SBP>170 (10) Renal cell carcinoma: Code(s): C64.9 - Malignant neoplasm of unspecified kidney, except renal pelvis Status: Chronic Assessment and Plan: Patient reports intervention, however unclear what this exactly was. Will need follow-up as outpatient, can consider imaging here if necessary. (11) Psoriasis: Code(s): L40.9 - Psoriasis, unspecified
[2022-04-24] MEDS: MAGNESIUM CITRATE 300 ML BTL PO (12:41)
[2022-04-24] MEDS: INSULIN ASPART (*BKC) 100 UNITS/ML SUB-Q ×2 (12:43→16:32)
[2022-04-24] MEDS: INSULIN ASPART (*BKC) 100 UNITS/ML 25 UNITS SUB-Q ×2 (12:45→16:34)
[2022-04-24] MEDS: levoFLOXacin 750 MG TABLET PO (12:48)
[2022-04-24] MEDS: SIMETHICONE 80 MG TAB.CHEW PO ×3 (12:56→20:55)
[2022-04-24] MEDS: methylPREDNISolone SOD SUCC 125 MG VIAL 60 MG IV PUSH ×2 (13:03→20:55)
[2022-04-24 13:36] LABS: Lactic Acid Reflex 4.6 mmol/L (0.7-2.0)
[2022-04-24 13:47] LABS: Free T4 Free Thyroxine 1.36 ng/mL (0.78-2.19)
[2022-04-24 16:05] LABS: Reflex Lactic Acid Yes or No Add Lactic
[2022-04-24 16:21] LABS: Glucose Point of Care 357 mg/dl (65-105)
[2022-04-24 16:34] LABS: Lactic Acid 2.6 mmol/L (0.7-2.0)
[2022-04-24 19:27] LABS: Lactic Acid Reflex 3.2 mmol/L (0.7-2.0)
[2022-04-24] MEDS: INSULIN GLARGINE (*BKC) 100 UNITS/ML 55 UNITS SUB-Q (20:54)
[2022-04-24] MEDS: SENNA/DOCUSATE SODIUM TABLET 1 TAB PO (20:55)
[2022-04-24] MEDS: guaiFENesin 12 HR 600 MG TABCR PO (20:55)
[2022-04-24 21:04] LABS: Glucose Point of Care 312 mg/dl (65-105)
[2022-04-25] VITALS (22 sets, daily range): BP systolic 116–127; BP diastolic 66–67; PULSE 72–96; RESP 16–20; TEMP 35.8–36.6; O2SAT 95–100
[2022-04-25] MEDS: ALBUTEROL SULFATE NEB 2.5 MG/3 ML INH 5 MG INHALATION ×4 (00:58→20:25)
[2022-04-25] MEDS: IPRATROPIUM BR 0.02% INH SOLN 0.5 MG/2.5 ML VIAL INHALATION ×4 (00:58→20:25)
[2022-04-25 01:41] LABS: Lactic Acid Reflex 2.3 mmol/L (0.7-2.0)
[2022-04-25 04:29] LABS: Reflex Lactic Acid Yes or No Add Lactic
[2022-04-25] MEDS: SODIUM CHLOR 3% 15 ML NEB (RESPIRATORY THERAPY) 6 ML INHALATION (04:38)
[2022-04-25] MEDS: methylPREDNISolone SOD SUCC 125 MG VIAL 60 MG IV PUSH ×3 (05:03→21:16)
[2022-04-25] MEDS: HEPARIN SODIUM 5,000 UNITS/ML VIAL 5000 UNITS SUB-Q ×3 (05:03→21:16)
[2022-04-25 06:06] LABS: Basophils Percent Auto 0.1 % (0.2-1.2); Hematocrit 43.8 % (42.0-52.0); Hemoglobin 13.8 g/dL (14.0-18.0); Immature Granulocyte Absolute 0.08 K/mm3 (0.00-0.031); Immature Granulocyte Percent A 0.8 % (0-0.5); Lymphocytes Absolute Auto 0.92 K/mm3 (0.9-3.2); Lymphocytes Percent Auto 8.7 % (18.3-44.2); Mean Corpuscular HGB Conc 31.5 g/dl (32-36); Mean Corpuscular Hemoglobin 28.2 pg (26-34); Mean Corpuscular Volume 89.6 fl (80-100); Mean Platelet Volume 11.3 fl (7.4-10.4); Monocytes Absolute Auto 0.4 K/mm3 (0.1-0.6); Monocytes Percent Auto 3.9 % (2.6-8.5); Neutrophils Absolute Auto 9.2 K/mm3 (1.3-6.7); Neutrophils Percent Auto 86.5 % (45.5-73.1); Platelet Count Result 208 k/mm3 (150-375); Red Blood Count 4.89 M/mm3 (4.6-6.20); Red Cell Distribution Width 15.9 % (11.5-14.5); White Blood Count 10.6 K/mm3 (4.5-10.0)
[2022-04-25 06:17] LABS: Alanine Aminotransferase 35 U/L (6-50); Albumin Level 4.1 g/dL (3.5-5.1); Alkaline Phosphatase 88 U/L (38-126); Anion Gap 9 mmol/L (8-16); Aspartate Amino Transferase 26 U/L (17-59); Bilirubin,Total 0.5 mg/dL (0.2-1.3); Blood Urea Nitrogen 34 mg/dL (9-20); Calcium 8.9 mg/dL (8.4-10.2); Carbon Dioxide 27 mmol/L (22-30); Chloride 100 mmol/L (98-107); Estimated CRCL calculation 70 ml/min; Estimated Glomerular Filt Rate > 60; Glucose 340 mg/dL (65-110); Potassium 5.1 mmol/L (3.4-5.0); Sodium 136 mmol/L (137-145)
[2022-04-25 06:19] LABS: Lactic Acid Reflex 3.2 mmol/L (0.7-2.0)
[2022-04-25 07:55] LABS: Glucose Point of Care 344 mg/dl (65-105)
[2022-04-25] MEDS: INSULIN ASPART (*BKC) 100 UNITS/ML 25 UNITS SUB-Q ×2 (08:51→12:36)
[2022-04-25] MEDS: INSULIN ASPART (*BKC) 100 UNITS/ML SUB-Q ×3 (08:52→17:21)
[2022-04-25] MEDS: amLODIPine BESYLATE 5 MG TABLET 10 MG PO (08:55)
[2022-04-25] MEDS: ATORVASTATIN 40 MG TABLET PO (08:55)
[2022-04-25] MEDS: polyethylene glycoL 3350 17 GM POWD.PACK PO (08:55)
[2022-04-25] MEDS: GABAPENTIN 300 MG CAPSULE PO ×3 (08:55→17:22)
[2022-04-25] MEDS: CLOPIDOGREL BISULFATE 75 MG TABLET PO (08:55)
[2022-04-25] MEDS: carvediloL 3.125 MG TABLET PO ×2 (08:56→21:17)
[2022-04-25] MEDS: guaiFENesin 12 HR 600 MG TABCR PO ×2 (08:57→21:17)
[2022-04-25] MEDS: levoFLOXacin 750 MG TABLET PO (08:57)
[2022-04-25] MEDS: ASPIRIN 81 MG ENTERIC TABLET PO (08:57)
[2022-04-25] MEDS: TAMSULOSIN HCL 0.4 MG CAPSULE PO (08:57)
[2022-04-25] MEDS: PANTOPRAZOLE 40 MG TABLET PO (08:57)
[2022-04-25] MEDS: SIMETHICONE 80 MG TAB.CHEW PO ×4 (09:15→21:17)
--- NOTE | 2022-04-25 09:30 | PM.IMPN ---
Progress Note: A&P Assessment and Plan (1) Acute exacerbation of chronic obstructive pulmonary disease: Code(s): J44.1 - Chronic obstructive pulmonary disease with (acute) exacerbation Status: Acute Assessment and Plan: Increased wheezing, dyspnea and change in sputum production quantity, consistency and color. Patient was incarcerated until November of this year. Additionally, he is poorly controlled diabetic and was hospitalized in January at this facility for COPDAE. -Continue Solu-Medrol 60 Q12., duonebs scheduled, mucinex PO BID. -Day 2 of 5, empiric levaquin 750 mg PO daily. Patient has risk factors for pseudomonas infection, as described above. -ABG with PaO2 <70 on room air. 2L O2 added. -sputum culture obtained but contaminated. -MRSA nasal swab to assess risk for MRSA pneumonia pending. -He is on Spiriva at home, but has been using his albuterol inhaler 100 times in the last 2 weeks. He would likely benefit from triple therapy LAMA, LABA, ICS. 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 (2) Shortness of breath: Code(s): R06.02 - Shortness of breath Status: Acute Assessment and Plan: COPD exacerbation management as above. Cannot rule out heart failure. -Echo with normal LV systolic function, grade 1 diastolic dysfunction and EF 55% -pro-BNP 469, may be falsely low due to obesity. -BUN increased so will hold diuretics for now. SOB appears more related to COPDAE. (3) Constipation: Code(s): K59.00 - Constipation, unspecified Status: Acute Assessment and Plan: Patient reports he has not had a bowel movement in about >8 days. -Mag citrate PO x1 on 04/24. -Continue MiraLax daily and senna S -Still no BM today. With increasing lactic acid, will check CT abd/pelvis with IV & PO contrast. (4) Diabetic neuropathy: Code(s): E11.40 - Type 2 diabetes mellitus with diabetic neuropathy, unspecified Status: Acute Assessment and Plan: Uncontrolled. Blood glucose >300 but improved from yesterday. Home regimen is reported to be 50 units lantus at HS and Novolog 20-30 units (including sliding scale) with meals. Patient is being treated with steroids. Last A1c 01/2022 was 10.3% -UA with 3+ glucose, but no ketones. -Increase lantus to 55 units at HS, increase aspart 30 units with meals plus sliding scale. -Consistent carb diet. Accu-checks AC/HS. -Gabapentin increased to 300 t.i.d. for c/o of peripheral neuropathy. (5) ELOISA (acute kidney injury): Code(s): N17.9 - Acute kidney failure, unspecified Status: Acute Assessment and Plan: Unclear etiology at this time. Presumed some underlying CKD due to HTN and uncontrolled diabetes. -Improved and stable. -Monitor after IV contrast today. -Monitor I/O. (6) Lactic acidosis: Code(s): E87.2 - Acidosis Status: Acute Assessment and Plan: Unclear etiology. Lactic acid fluctuating up and down- ?tissue hypoxia but does not appear to be septic. Patient has multiple comorbidities, including possible renal cell carcinoma; diabetes but not on metformin; no s/s DKA, shock or systemic hypoperfusion, HIV negative and no h/o alcoholism. ?bowel related. -CT abd/pelvis pending. -NS@50 mL/hour started -repeat lactic acid tomorrow morning. (7) Dyslipidemia: Code(s): E78.5 - Hyperlipidemia, unspecified Status: Chronic Assessment and Plan: -Continue Lipitor (8) Peripheral arterial disease: Code(s): I73.9 - Peripheral vascular disease, unspecified Status: Chronic Assessment and Plan: Continue ASA 81, Plavix, statin. Given symptoms of dizziness/lightheadedness while raising arms above head, subclavian steal syndrome on differential. He reports known carotid artery disease. He has seen vascular services outpatient and should have further evaluation. (9) Coronary artery disease: Code(s): I25.10 - Atherosclerotic heart dise
[2022-04-25 11:39] LABS: Glucose Point of Care 382 mg/dl (65-105)
[2022-04-25] MEDS: ACETAMINOPHEN 325 MG TABLET 650 MG PO ×2 (12:34→21:43)
[2022-04-25] MEDS: SODIUM CHLORIDE 0.9% IV 1,000 ML 50 ML IV CONT (14:07)
[2022-04-25 14:32] LABS: Lactic Acid Reflex 4.3 mmol/L (0.7-2.0)
[2022-04-25 16:35] LABS: Glucose Point of Care 334 mg/dl (65-105)
[2022-04-25 17:16] LABS: Reflex Lactic Acid Yes or No Add Lactic
[2022-04-25] MEDS: INSULIN ASPART (*BKC) 100 UNITS/ML 30 UNITS SUB-Q (17:21)
[2022-04-25 18:00] LABS: Lactic Acid 3.4 mmol/L (0.7-2.0)
[2022-04-25] MEDS: INSULIN GLARGINE (*BKC) 100 UNITS/ML 55 UNITS SUB-Q (21:15)
[2022-04-25] MEDS: MELATONIN 5 MG TABLET PO (21:17)
[2022-04-25] MEDS: MICONAZOLE NITRATE 2% CREAM 30 GM TUBE 1 APPLIC TOPICAL (21:17)
[2022-04-25] MEDS: CLOBETASOL PROPIONATE 0.05% CREAM 30 GM 1 APPLIC TOPICAL (21:17)
[2022-04-25] MEDS: SENNA/DOCUSATE SODIUM TABLET 1 TAB PO (21:18)
[2022-04-25 22:14] LABS: Glucose Point of Care 308 mg/dl (65-105)
[2022-04-26] VITALS (24 sets, daily range): BP systolic 115–148; BP diastolic 69–86; PULSE 70–756; RESP 12–20; TEMP 36.3–36.6; O2SAT 94–97
[2022-04-26] MEDS: ALBUTEROL SULFATE NEB 2.5 MG/3 ML INH 5 MG INHALATION ×4 (02:29→19:51)
[2022-04-26] MEDS: IPRATROPIUM BR 0.02% INH SOLN 0.5 MG/2.5 ML VIAL INHALATION ×2 (02:29→19:50)
[2022-04-26] MEDS: SODIUM CHLOR 3% 15 ML NEB (RESPIRATORY THERAPY) 6 ML INHALATION (05:11)
[2022-04-26] MEDS: HEPARIN SODIUM 5,000 UNITS/ML VIAL 5000 UNITS SUB-Q ×3 (05:18→21:53)
[2022-04-26 06:03] LABS: Hematocrit 41.5 % (42.0-52.0); Hemoglobin 13.3 g/dL (14.0-18.0); Immature Granulocyte Absolute 0.08 K/mm3 (0.00-0.031); Immature Granulocyte Percent A 0.8 % (0-0.5); Lymphocytes Percent Auto 9.1 % (18.3-44.2); Mean Corpuscular Hemoglobin 28.1 pg (26-34); Mean Corpuscular Volume 87.7 fl (80-100); Mean Platelet Volume 11.4 fl (7.4-10.4); Monocytes Absolute Auto 0.4 K/mm3 (0.1-0.6); Monocytes Percent Auto 3.8 % (2.6-8.5); Neutrophils Absolute Auto 8.6 K/mm3 (1.3-6.7); Neutrophils Percent Auto 86.3 % (45.5-73.1); Platelet Count Result 222 k/mm3 (150-375); Red Blood Count 4.73 M/mm3 (4.6-6.20); Red Cell Distribution Width 15.8 % (11.5-14.5); White Blood Count 9.9 K/mm3 (4.5-10.0)
[2022-04-26 06:11] LABS: Lactic Acid Reflex 2.5 mmol/L (0.7-2.0)
[2022-04-26 06:14] LABS: Alanine Aminotransferase 29 U/L (6-50); Albumin Level 3.8 g/dL (3.5-5.1); Alkaline Phosphatase 80 U/L (38-126); Anion Gap 7 mmol/L (8-16); Aspartate Amino Transferase 22 U/L (17-59); Bilirubin,Total 0.3 mg/dL (0.2-1.3); Blood Urea Nitrogen 34 mg/dL (9-20); Calcium 8.6 mg/dL (8.4-10.2); Carbon Dioxide 27 mmol/L (22-30); Chloride 101 mmol/L (98-107); Estimated CRCL calculation 70 ml/min; Estimated Glomerular Filt Rate > 60; Glucose 264 mg/dL (65-110); Potassium 4.6 mmol/L (3.4-5.0); Sodium 135 mmol/L (137-145)
[2022-04-26 07:50] LABS: Glucose Point of Care 308 mg/dl (65-105)
[2022-04-26 08:59] LABS: Reflex Lactic Acid Yes or No Add Lactic
[2022-04-26] MEDS: INSULIN ASPART (*BKC) 100 UNITS/ML 30 UNITS SUB-Q ×2 (10:00→16:22)
[2022-04-26] MEDS: INSULIN ASPART (*BKC) 100 UNITS/ML SUB-Q ×2 (10:02→16:23)
[2022-04-26] MEDS: ATORVASTATIN 40 MG TABLET PO (10:08)
[2022-04-26] MEDS: guaiFENesin 12 HR 600 MG TABCR PO ×2 (10:08→21:52)
[2022-04-26] MEDS: polyethylene glycoL 3350 17 GM POWD.PACK PO (10:08)
[2022-04-26] MEDS: levoFLOXacin 750 MG TABLET PO (10:08)
[2022-04-26] MEDS: TAMSULOSIN HCL 0.4 MG CAPSULE PO (10:08)
[2022-04-26] MEDS: GABAPENTIN 300 MG CAPSULE PO ×2 (10:08→16:03)
[2022-04-26] MEDS: ASPIRIN 81 MG ENTERIC TABLET PO (10:09)
[2022-04-26] MEDS: PANTOPRAZOLE 40 MG TABLET PO (10:09)
[2022-04-26] MEDS: amLODIPine BESYLATE 5 MG TABLET 10 MG PO (10:09)
[2022-04-26] MEDS: CLOPIDOGREL BISULFATE 75 MG TABLET PO (10:09)
[2022-04-26] MEDS: methylPREDNISolone SOD SUCC 125 MG VIAL 60 MG IV PUSH ×2 (10:10→21:53)
[2022-04-26] MEDS: SODIUM CHLORIDE 0.9% IV 1,000 ML 50 ML IV CONT (10:11)
[2022-04-26] MEDS: carvediloL 3.125 MG TABLET PO (10:11)
[2022-04-26] MEDS: CLOBETASOL PROPIONATE 0.05% CREAM 30 GM 1 APPLIC TOPICAL ×2 (10:18→21:53)
[2022-04-26] MEDS: MICONAZOLE NITRATE 2% CREAM 30 GM TUBE 1 APPLIC TOPICAL ×2 (10:18→21:53)
[2022-04-26] MEDS: SIMETHICONE 80 MG TAB.CHEW PO ×3 (10:19→22:02)
--- NOTE | 2022-04-26 11:09 | PM.IMPN ---
Progress Note: A&P Assessment and Plan (1) Acute exacerbation of chronic obstructive pulmonary disease: Code(s): J44.1 - Chronic obstructive pulmonary disease with (acute) exacerbation Status: Acute Assessment and Plan: Increased wheezing, dyspnea and change in sputum production quantity, consistency and color. Patient was incarcerated until November of this year. Additionally, he is poorly controlled diabetic and was hospitalized in January at this facility for COPDAE. -Continue Solu-Medrol 60 Q12., duonebs scheduled, mucinex PO BID. Wean steroids tomorrow if still improving. -Day 3 of 5, empiric levaquin 750 mg PO daily. Patient has risk factors for pseudomonas infection, as described above. -sputum culture obtained but contaminated. -MRSA nasal swab to assess risk for MRSA pneumonia pending. -He is on Spiriva at home, but has been using his albuterol inhaler 100 times in the last 2 weeks. He would likely benefit from triple therapy LAMA, LABA, ICS. 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 (2) Shortness of breath: Code(s): R06.02 - Shortness of breath Status: Acute Assessment and Plan: COPD exacerbation management as above. Cannot rule out heart failure. -Echo with normal LV systolic function, grade 1 diastolic dysfunction and EF 55% -pro-BNP 469, may be falsely low due to obesity. -BUN increased so will hold diuretics for now. SOB appears more related to COPDAE. (3) Constipation: Code(s): K59.00 - Constipation, unspecified Status: Acute Assessment and Plan: Patient reports he has not had a bowel movement in about >8 days. -Mag citrate PO x1 on 04/24. -Continue MiraLax daily and senna S -Still no BM today. -CT abd/pelvis with IV contrast pending. (4) Diabetic neuropathy: Code(s): E11.40 - Type 2 diabetes mellitus with diabetic neuropathy, unspecified Status: Acute Assessment and Plan: Uncontrolled. Blood glucose >300 but improved from yesterday. Home regimen is reported to be 50 units lantus at HS and Novolog 20-30 units (including sliding scale) with meals. Patient is being treated with steroids. Last A1c 01/2022 was 10.3% -UA with 3+ glucose, but no ketones. -Fasting glucose still 300s. -Increase lantus to 60 units at HS, aspart 30 units with meals plus sliding scale. -Consistent carb diet. Accu-checks AC/HS. -Gabapentin increased to 300 t.i.d. for c/o of peripheral neuropathy. (5) ELOISA (acute kidney injury): Code(s): N17.9 - Acute kidney failure, unspecified Status: Acute Assessment and Plan: Unclear etiology at this time. Presumed some underlying CKD due to HTN and uncontrolled diabetes. -Improved and stable. -Monitor after IV contrast today. -Monitor I/O. (6) Lactic acidosis: Code(s): E87.2 - Acidosis Status: Acute Assessment and Plan: Unclear etiology. Lactic acid fluctuating up and down- ?tissue hypoxia but does not appear to be septic. Patient has multiple comorbidities, including possible renal cell carcinoma; diabetes but not on metformin; no s/s DKA, shock or systemic hypoperfusion, HIV negative and no h/o alcoholism. ?bowel related. -CT abd/pelvis pending. -am Lactic acid level 2.5 today. No s/s acute infection. CT abd/pelvis still pending. Nursing reports patient is a hard stick for IVs and labs ?inaccurate collect as contributing factor. Stop IV fluids for now. (7) Dyslipidemia: Code(s): E78.5 - Hyperlipidemia, unspecified Status: Chronic Assessment and Plan: -Continue Lipitor (8) Peripheral arterial disease: Code(s): I73.9 - Peripheral vascular disease, unspecified Status: Chronic Assessment and Plan: Continue ASA 81, Plavix, statin. -He has seen vascular services outpatient and should have further evaluation. (9) Coronary artery disease: Code(s): I25.10 - Atherosclerotic heart disease of [place] coronary artery
[2022-04-26 12:35] LABS: Glucose Point of Care 314 mg/dl (65-105)
[2022-04-26 16:22] LABS: Glucose Point of Care 230 mg/dl (65-105)
[2022-04-26] MEDS: SENNA/DOCUSATE SODIUM TABLET 2 TAB PO (16:29)
[2022-04-26] MEDS: ACETAMINOPHEN 325 MG TABLET 650 MG PO (19:58)
[2022-04-26 20:06] LABS: Glucose Point of Care 363 mg/dl (65-105)
[2022-04-26] MEDS: INSULIN GLARGINE (*BKC) 100 UNITS/ML 60 UNITS SUB-Q (21:52)
[2022-04-26] MEDS: MELATONIN 5 MG TABLET PO (21:52)
[2022-04-26] MEDS: carvediloL 6.25 MG TABLET PO (21:52)
[2022-04-26] MEDS: SALINE LOCK FLUSH 10 ML IV PUSH (21:53)
[2022-04-27] VITALS (22 sets, daily range): BP systolic 140–152; BP diastolic 84–86; PULSE 73–80; RESP 14–20; TEMP 36.1–36.3; O2SAT 92–97
[2022-04-27] MEDS: IPRATROPIUM BR 0.02% INH SOLN 0.5 MG/2.5 ML VIAL INHALATION ×4 (01:51→20:13)
[2022-04-27] MEDS: ALBUTEROL SULFATE NEB 2.5 MG/3 ML INH 5 MG INHALATION ×4 (01:51→20:13)
[2022-04-27] MEDS: HEPARIN SODIUM 5,000 UNITS/ML VIAL 5000 UNITS SUB-Q ×3 (06:00→19:59)
[2022-04-27] MEDS: SALINE LOCK FLUSH 10 ML IV PUSH ×3 (06:01→20:00)
[2022-04-27] MEDS: SODIUM CHLOR 3% 15 ML NEB (RESPIRATORY THERAPY) 6 ML INHALATION (06:05)
[2022-04-27 06:07] LABS: Basophils Percent Auto 0.1 % (0.2-1.2); Hematocrit 41.4 % (42.0-52.0); Immature Granulocyte Absolute 0.06 K/mm3 (0.00-0.031); Immature Granulocyte Percent A 0.8 % (0-0.5); Lymphocytes Absolute Auto 0.73 K/mm3 (0.9-3.2); Lymphocytes Percent Auto 9.6 % (18.3-44.2); Mean Corpuscular HGB Conc 31.4 g/dl (32-36); Mean Corpuscular Volume 89.2 fl (80-100); Mean Platelet Volume 10.8 fl (7.4-10.4); Monocytes Absolute Auto 0.5 K/mm3 (0.1-0.6); Monocytes Percent Auto 6.5 % (2.6-8.5); Neutrophils Absolute Auto 6.3 K/mm3 (1.3-6.7); Platelet Count Result 216 k/mm3 (150-375); Red Blood Count 4.64 M/mm3 (4.6-6.20); Red Cell Distribution Width 15.7 % (11.5-14.5); White Blood Count 7.6 K/mm3 (4.5-10.0)
[2022-04-27 06:20] LABS: Alanine Aminotransferase 26 U/L (6-50); Albumin Level 3.6 g/dL (3.5-5.1); Alkaline Phosphatase 72 U/L (38-126); Anion Gap 6 mmol/L (8-16); Aspartate Amino Transferase 22 U/L (17-59); Bilirubin,Total 0.3 mg/dL (0.2-1.3); Blood Urea Nitrogen 31 mg/dL (9-20); Calcium 8.3 mg/dL (8.4-10.2); Carbon Dioxide 29 mmol/L (22-30); Chloride 100 mmol/L (98-107); Estimated CRCL calculation 61 ml/min; Estimated Glomerular Filt Rate 52; Glucose 265 mg/dL (65-110); Potassium 5.1 mmol/L (3.4-5.0); Sodium 135 mmol/L (137-145)
[2022-04-27 07:16] LABS: Glucose Point of Care 285 mg/dl (65-105)
[2022-04-27] MEDS: SENNA/DOCUSATE SODIUM TABLET 2 TAB PO ×2 (08:13→16:46)
[2022-04-27] MEDS: polyethylene glycoL 3350 17 GM POWD.PACK PO (08:13)
[2022-04-27] MEDS: PANTOPRAZOLE 40 MG TABLET PO (08:14)
[2022-04-27] MEDS: TAMSULOSIN HCL 0.4 MG CAPSULE PO (08:14)
[2022-04-27] MEDS: guaiFENesin 12 HR 600 MG TABCR PO ×2 (08:14→19:58)
[2022-04-27] MEDS: carvediloL 6.25 MG TABLET PO ×2 (08:14→19:59)
[2022-04-27] MEDS: GABAPENTIN 300 MG CAPSULE PO ×3 (08:14→16:46)
[2022-04-27] MEDS: ATORVASTATIN 40 MG TABLET PO (08:14)
[2022-04-27] MEDS: ASPIRIN 81 MG ENTERIC TABLET PO (08:14)
[2022-04-27] MEDS: amLODIPine BESYLATE 5 MG TABLET 10 MG PO (08:15)
[2022-04-27] MEDS: CLOPIDOGREL BISULFATE 75 MG TABLET PO (08:15)
[2022-04-27] MEDS: methylPREDNISolone SOD SUCC 125 MG VIAL 60 MG IV PUSH (08:15)
[2022-04-27] MEDS: levoFLOXacin 750 MG TABLET PO (08:15)
[2022-04-27] MEDS: INSULIN ASPART (*BKC) 100 UNITS/ML 30 UNITS SUB-Q ×3 (08:16→16:45)
[2022-04-27] MEDS: INSULIN ASPART (*BKC) 100 UNITS/ML SUB-Q ×2 (08:16→16:45)
[2022-04-27] MEDS: SIMETHICONE 80 MG TAB.CHEW PO ×3 (08:16→16:51)
[2022-04-27] MEDS: MICONAZOLE NITRATE 2% CREAM 30 GM TUBE 1 APPLIC TOPICAL ×2 (08:17→19:58)
[2022-04-27] MEDS: CLOBETASOL PROPIONATE 0.05% CREAM 30 GM 1 APPLIC TOPICAL ×2 (08:17→19:57)
[2022-04-27] MEDS: BISACODYL 10 MG SUPPOSITORY RECTAL (11:07)
[2022-04-27] MEDS: SODIUM CHLORIDE 0.9% IV 500 ML 100 ML IV CONT (11:07)
[2022-04-27 11:46] LABS: Glucose Point of Care 197 mg/dl (65-105)
--- NOTE | 2022-04-27 16:12 | PM.IMPN ---
Progress Note: A&P Assessment and Plan (1) Acute exacerbation of chronic obstructive pulmonary disease: Code(s): J44.1 - Chronic obstructive pulmonary disease with (acute) exacerbation Status: Acute Assessment and Plan: Increased wheezing, dyspnea and change in sputum production quantity, consistency and color. Patient was incarcerated until November of this year. Additionally, he is poorly controlled diabetic and was hospitalized in January at this facility for COPDAE. -Wean to prednisone 40 mg daily, duonebs scheduled, mucinex PO BID. -Day 4 of 5, empiric levaquin 750 mg PO daily. -sputum culture obtained but contaminated. -MRSA nasal swab to assess risk for MRSA pneumonia pending. -He is on Spiriva at home, but has been using his albuterol inhaler 100 times in the last 2 weeks. He would likely benefit from triple therapy LAMA, LABA, ICS. -Needs to quit smoking. (2) Shortness of breath: Code(s): R06.02 - Shortness of breath Status: Acute Assessment and Plan: COPD exacerbation management as above. CHF exacerbation less likely. -Echo with normal LV systolic function, grade 1 diastolic dysfunction and EF 55% -pro-BNP 469, may be falsely low due to obesity. -BUN increased and creatinine increased from so will hold diuretics. 500 cc slow IV infusion today d/t elevated renal function. (3) Constipation: Code(s): K59.00 - Constipation, unspecified Status: Acute Assessment and Plan: Patient reports he has not had a bowel movement in about >8 days. -Mag citrate PO x1 on 04/24. -Continue MiraLax daily and senna S increased 2 tabs Q12 -CT abd/pelvis with IV contrast without obstruction. -Ducolax suppository x1 now. (4) Diabetic neuropathy: Code(s): E11.40 - Type 2 diabetes mellitus with diabetic neuropathy, unspecified Status: Acute Assessment and Plan: Uncontrolled. Blood glucose >300 but improved from yesterday. Home regimen is reported to be 50 units lantus at HS and Novolog 20-30 units (including sliding scale) with meals. Patient is being treated with steroids. Last A1c 01/2022 was 10.3% -UA with 3+ glucose, but no ketones. -Fasting and point of care glucose improving with increased insulin and weaning steroids. -Increase lantus to 60 units at HS, aspart 30 units with meals plus sliding scale. -Consistent carb diet. Accu-checks AC/HS. -Gabapentin increased to 300 t.i.d. for c/o of peripheral neuropathy this hospital stay. (5) ELOISA (acute kidney injury): Code(s): N17.9 - Acute kidney failure, unspecified Status: Acute Assessment and Plan: Unclear etiology at this time. Presumed some underlying CKD due to HTN and uncontrolled diabetes. -Increased BUN/Creatinine following IV contrast. -Give 500 cc NS bolus now and encourage oral water intake. -Monitor I/O. (6) Lactic acidosis: Code(s): E87.2 - Acidosis Status: Acute Assessment and Plan: Unclear etiology. Lactic acid fluctuating up and down- ?tissue hypoxia but does not appear to be septic. Patient has multiple comorbidities, including possible renal cell carcinoma; diabetes but not on metformin; no s/s DKA, shock or systemic hypoperfusion, HIV negative and no h/o alcoholism. ?bowel related. -CT abd/pelvis pending. -am Lactic acid level 2.5 today. No s/s acute infection. CT abd/pelvis still pending. Nursing reports patient is a hard stick for IVs and labs ?inaccurate collect as contributing factor. Stop IV fluids for now. -Repeat lactic acid in am now that patient has easier IV access for more accurate lab draw. (7) Dyslipidemia: Code(s): E78.5 - Hyperlipidemia, unspecified Status: Chronic Assessment and Plan: -Continue Lipitor (8) Peripheral arterial disease: Code(s): I73.9 - Peripheral vascular disease, unspecified Status: Chronic Assessment and Plan: Continue ASA 81, Plavix, statin.
[2022-04-27 16:37] LABS: Glucose Point of Care 283 mg/dl (65-105)
[2022-04-27 16:49] LABS: Hepatitis C RNA, Quant PCR <15 IU/mL
[2022-04-27] MEDS: ACETAMINOPHEN 325 MG TABLET 650 MG PO (16:51)
[2022-04-27 19:42] LABS: Glucose Point of Care 224 mg/dl (65-105)
[2022-04-27] MEDS: MELATONIN 5 MG TABLET PO (20:04)
[2022-04-27] MEDS: INSULIN GLARGINE (*BKC) 100 UNITS/ML 60 UNITS SUB-Q (20:04)
[2022-04-28] VITALS (22 sets, daily range): BP systolic 110–154; BP diastolic 64–70; PULSE 65–90; RESP 12–20; TEMP 36.5–36.7; O2SAT 94–96
[2022-04-28] MEDS: ALBUTEROL SULFATE NEB 2.5 MG/3 ML INH 5 MG INHALATION ×4 (01:50→20:15)
[2022-04-28] MEDS: IPRATROPIUM BR 0.02% INH SOLN 0.5 MG/2.5 ML VIAL INHALATION ×4 (01:50→20:15)
[2022-04-28] MEDS: SIMETHICONE 80 MG TAB.CHEW PO ×5 (01:51→20:41)
[2022-04-28] MEDS: ACETAMINOPHEN 325 MG TABLET 650 MG PO ×3 (01:52→20:40)
[2022-04-28] MEDS: HEPARIN SODIUM 5,000 UNITS/ML VIAL 5000 UNITS SUB-Q ×3 (05:17→20:41)
[2022-04-28] MEDS: SALINE LOCK FLUSH 10 ML IV PUSH ×3 (05:18→20:43)
[2022-04-28 06:11] LABS: Lactic Acid Reflex 1.8 mmol/L (0.7-2.0)
[2022-04-28 06:15] LABS: Alanine Aminotransferase 36 U/L (6-50); Albumin Level 3.4 g/dL (3.5-5.1); Alkaline Phosphatase 71 U/L (38-126); Anion Gap 5 mmol/L (8-16); Aspartate Amino Transferase 43 U/L (17-59); Bilirubin,Total 0.2 mg/dL (0.2-1.3); Blood Urea Nitrogen 34 mg/dL (9-20); Calcium 8.1 mg/dL (8.4-10.2); Carbon Dioxide 26 mmol/L (22-30); Chloride 103 mmol/L (98-107); Estimated CRCL calculation 65 ml/min; Estimated Glomerular Filt Rate 56; Glucose 283 mg/dL (65-110); Potassium 4.2 mmol/L (3.4-5.0); Sodium 134 mmol/L (137-145)
[2022-04-28 07:51] LABS: Glucose Point of Care 235 mg/dl (65-105)
[2022-04-28] MEDS: guaiFENesin 12 HR 600 MG TABCR PO ×2 (09:22→20:40)
[2022-04-28] MEDS: amLODIPine BESYLATE 5 MG TABLET 10 MG PO (09:22)
[2022-04-28] MEDS: SENNA/DOCUSATE SODIUM TABLET 2 TAB PO (09:23)
[2022-04-28] MEDS: predniSONE 20 MG TABLET 40 MG PO (09:23)
[2022-04-28] MEDS: TAMSULOSIN HCL 0.4 MG CAPSULE 0.8 MG PO (09:23)
[2022-04-28] MEDS: GABAPENTIN 300 MG CAPSULE PO ×3 (09:23→17:23)
[2022-04-28] MEDS: ASPIRIN 81 MG ENTERIC TABLET PO (09:23)
[2022-04-28] MEDS: levoFLOXacin 750 MG TABLET PO (09:24)
[2022-04-28] MEDS: PANTOPRAZOLE 40 MG TABLET PO (09:24)
[2022-04-28] MEDS: ATORVASTATIN 40 MG TABLET PO (09:24)
[2022-04-28] MEDS: carvediloL 6.25 MG TABLET PO ×2 (09:24→20:40)
[2022-04-28] MEDS: polyethylene glycoL 3350 17 GM POWD.PACK PO (09:24)
[2022-04-28] MEDS: CLOPIDOGREL BISULFATE 75 MG TABLET PO (09:24)
[2022-04-28] MEDS: MICONAZOLE NITRATE 2% CREAM 30 GM TUBE 1 APPLIC TOPICAL ×2 (09:25→20:42)
[2022-04-28] MEDS: CLOBETASOL PROPIONATE 0.05% CREAM 30 GM 1 APPLIC TOPICAL ×2 (09:25→20:41)
[2022-04-28] MEDS: INSULIN ASPART (*BKC) 100 UNITS/ML 30 UNITS SUB-Q ×3 (09:28→17:23)
[2022-04-28] MEDS: INSULIN ASPART (*BKC) 100 UNITS/ML SUB-Q ×3 (09:28→17:22)
[2022-04-28] MEDS: lisinopriL 20 MG TABLET PO (09:38)
[2022-04-28] MEDS: FUROSEMIDE 20 MG TABLET PO (09:39)
[2022-04-28 11:45] LABS: Glucose Point of Care 212 mg/dl (65-105)
[2022-04-28] MEDS: MUPIROCIN 2% OINT 22 GM TUBE 1 APPLIC EACH NARE ×2 (12:06→20:42)
[2022-04-28] MEDS: polyethylene glycoL 3350 238 GM BOTTLE PO (12:06)
--- NOTE | 2022-04-28 12:11 | P.PNIM_ITS ---
Progress Note: A&P Assessment and Plan (1) Acute exacerbation of chronic obstructive pulmonary disease: Code(s): J44.1 - Chronic obstructive pulmonary disease with (acute) exacerbation Status: Acute Assessment and Plan: * Increased wheezing, dyspnea and change in sputum production quantity, consistency and color. Patient was incarcerated until November of this year. Additionally, he is poorly controlled diabetic and was hospitalized in January at this facility for COPDAE. * Continue prednisone 40 mg daily x5 days, duonebs scheduled, mucinex PO BID. * Completed 5 days of empiric levaquin 750 mg PO daily. stop 04/28 * sputum culture contaminated. * MRSA nasal swab positive for MRSA. Repeat CXR shows no acute infiltrates to suggest pneumonia. * He is on Spiriva at home, but has been using his albuterol inhaler 100 times in the last 2 weeks. He would benefit from triple therapy LAMA, LABA, ICS. * Needs to quit smoking. (2) Constipation: Code(s): K59.00 - Constipation, unspecified Status: Acute Assessment and Plan: * No BM x13 days, per patient. * Mag citrate PO x1 on 04/24 without effect. * MiraLax daily and senna S increased 2 tabs Q12 not effective & stopped 04/28 * 04/26 CT abd/pelvis with IV contrast without obstruction. * 04/27 Ducolax suppository x1 and fleet enema without success. * 04/28 Soap suds enema x1, miralax bowel prep x1/2 dose. Large BM after soap suds enema, per nursing. * Add Linzess 145 mg PO daily for chronic constipation, start 04/29 (3) Diabetic neuropathy: Code(s): E11.40 - Type 2 diabetes mellitus with diabetic neuropathy, unspecified Status: Acute Assessment and Plan: * Uncontrolled. Blood glucose >300 but improved from yesterday. Home regimen is reported to be 50 units lantus at HS and Novolog 20-30 units (including sliding scale) with meals. Patient is being treated with steroids. Last A1c 01/2022 was 10.3% * Weaning steroids. Basal/bolus insulin adjusted last 04/26. If still elevated, consider increasing tomorrow. * Lantus to 60 units at HS, aspart 30 units with meals plus sliding scale. * Consistent carb diet. Accu-checks AC/HS. * Gabapentin increased to 300 t.i.d. for c/o of peripheral neuropathy this hospital stay. (4) ELOISA (acute kidney injury): Code(s): N17.9 - Acute kidney failure, unspecified Status: Resolved Assessment and Plan: * Increased BUN/Creatinine following IV contrast. * Likely has some underlying CKD from HTN and DMT2 * Improved after 500 cc NS bolus 04/27. * Monitor I/O. (5) Lactic acidosis: Code(s): E87.2 - Acidosis Status: Resolved Assessment and Plan: * Unclear etiology. Lactic acid fluctuating up and down. Likely secondary to lab collection/transport error. * ?tissue hypoxia but does not appear to be septic. Patient has multiple comorbidities, including possible renal cell carcinoma; diabetes but not on metformin; no s/s DKA, shock or systemic hypoperfusion, HIV negative and no h/o alcoholism. ?bowel related. * 04/28 Lactic acid 1.8 and normal. No concerns for sepsis. (6) Shortness of breath: Code(s): R06.02 - Shortness of breath Status: Resolved Assessment and Plan: * COPD exacerbation management as above. CHF exacerbation less likely. * Echo with normal LV systolic function, grade 1 diastolic dysfunction and EF 55% (7) MRSA (methicillin resistant Staphylococcus aureus) colonization: Code(s): Z22.322 - Carrier or suspected carrier of Met
--- NOTE | 2022-04-28 12:11 | PM.IMPN ---
Progress Note: A&P Assessment and Plan (1) Acute exacerbation of chronic obstructive pulmonary disease: Code(s): J44.1 - Chronic obstructive pulmonary disease with (acute) exacerbation Status: Acute Assessment and Plan: Increased wheezing, dyspnea and change in sputum production quantity, consistency and color. Patient was incarcerated until November of this year. Additionally, he is poorly controlled diabetic and was hospitalized in January at this facility for COPDAE. Continue prednisone 40 mg daily x5 days, duonebs scheduled, mucinex PO BID. Completed 5 days of empiric levaquin 750 mg PO daily. stop 04/28 sputum culture contaminated. MRSA nasal swab positive for MRSA. Repeat CXR shows no acute infiltrates to suggest pneumonia. He is on Spiriva at home, but has been using his albuterol inhaler 100 times in the last 2 weeks. He would benefit from triple therapy LAMA, LABA, ICS. Needs to quit smoking. (2) Constipation: Code(s): K59.00 - Constipation, unspecified Status: Acute Assessment and Plan: No BM x13 days, per patient. Mag citrate PO x1 on 04/24 without effect. MiraLax daily and senna S increased 2 tabs Q12 not effective & stopped 04/28 04/26 CT abd/pelvis with IV contrast without obstruction. 04/27 Ducolax suppository x1 and fleet enema without success. 04/28 Soap suds enema x1, miralax bowel prep x1/2 dose. Large BM after soap suds enema, per nursing. Add Linzess 145 mg PO daily for chronic constipation, start 04/29 (3) Diabetic neuropathy: Code(s): E11.40 - Type 2 diabetes mellitus with diabetic neuropathy, unspecified Status: Acute Assessment and Plan: Uncontrolled. Blood glucose >300 but improved from yesterday. Home regimen is reported to be 50 units lantus at HS and Novolog 20-30 units (including sliding scale) with meals. Patient is being treated with steroids. Last A1c 01/2022 was 10.3% Weaning steroids. Basal/bolus insulin adjusted last 04/26. If still elevated, consider increasing tomorrow. Lantus to 60 units at HS, aspart 30 units with meals plus sliding scale. Consistent carb diet. Accu-checks AC/HS. Gabapentin increased to 300 t.i.d. for c/o of peripheral neuropathy this hospital stay. (4) ELOISA (acute kidney injury): Code(s): N17.9 - Acute kidney failure, unspecified Status: Resolved Assessment and Plan: Increased BUN/Creatinine following IV contrast. Likely has some underlying CKD from HTN and DMT2 Improved after 500 cc NS bolus 04/27. Monitor I/O. (5) Lactic acidosis: Code(s): E87.2 - Acidosis Status: Resolved Assessment and Plan: Unclear etiology. Lactic acid fluctuating up and down. Likely secondary to lab collection/transport error. ?tissue hypoxia but does not appear to be septic. Patient has multiple comorbidities, including possible renal cell carcinoma; diabetes but not on metformin; no s/s DKA, shock or systemic hypoperfusion, HIV negative and no h/o alcoholism. ?bowel related. 04/28 Lactic acid 1.8 and normal. No concerns for sepsis. (6) Shortness of breath: Code(s): R06.02 - Shortness of breath Status: Resolved Assessment and Plan: COPD exacerbation management as above. CHF exacerbation less likely. Echo with normal LV systolic function, grade 1 diastolic dysfunction and EF 55% (7) MRSA (methicillin resistant Staphylococcus aureus) colonization: Code(s): Z22.322 - Carrier or suspected carrier of Methicillin resistant Staphylococcus aureus Status: Chronic Assessment and Plan: Bactroban 1 application each nares x 5 days Consider hibiclens wash daily when psoriasis more controlled. (8) Dyslipidemia: Code(s): E78.5 - Hyperlipidemia, unspecified Status: Chronic Assessment and Plan: Continue Lipitor (9) Peripheral arterial disease: Code(s): I73.9 - Peripheral vascular d
[2022-04-28 16:35] LABS: Glucose Point of Care 244 mg/dl (65-105)
[2022-04-28] MEDS: MELATONIN 5 MG TABLET PO (20:40)
[2022-04-28] MEDS: INSULIN GLARGINE (*BKC) 100 UNITS/ML 60 UNITS SUB-Q (21:43)
[2022-04-29] VITALS (12 sets, daily range): BP systolic 129; BP diastolic 68; PULSE 70–82; RESP 16–18; TEMP 36.7; O2SAT 95–97
[2022-04-29] MEDS: ALBUTEROL SULFATE NEB 2.5 MG/3 ML INH 5 MG INHALATION ×2 (03:25→09:00)
[2022-04-29] MEDS: IPRATROPIUM BR 0.02% INH SOLN 0.5 MG/2.5 ML VIAL INHALATION ×2 (03:30→09:00)
[2022-04-29] MEDS: HEPARIN SODIUM 5,000 UNITS/ML VIAL 5000 UNITS SUB-Q (05:21)
[2022-04-29] MEDS: SALINE LOCK FLUSH 10 ML IV PUSH (05:21)
[2022-04-29] MEDS: ACETAMINOPHEN 325 MG TABLET 650 MG PO (06:09)
[2022-04-29] MEDS: LINACLOTIDE 145 MCG CAPSULE PO (06:56)
[2022-04-29 08:01] LABS: Glucose Point of Care 121 mg/dl (65-105)
[2022-04-29 08:11] LABS: Anion Gap 7 mmol/L (8-16); Blood Urea Nitrogen 31 mg/dL (9-20); Calcium 8.1 mg/dL (8.4-10.2); Carbon Dioxide 26 mmol/L (22-30); Chloride 102 mmol/L (98-107); Estimated CRCL calculation 70 ml/min; Estimated Glomerular Filt Rate > 60; Glucose 121 mg/dL (65-110); Potassium 4.3 mmol/L (3.4-5.0); Sodium 135 mmol/L (137-145)
[2022-04-29] MEDS: INSULIN ASPART (*BKC) 100 UNITS/ML 30 UNITS SUB-Q (08:14)
[2022-04-29] MEDS: FUROSEMIDE 20 MG TABLET PO (08:17)
[2022-04-29] MEDS: PANTOPRAZOLE 40 MG TABLET PO (08:17)
[2022-04-29] MEDS: lisinopriL 20 MG TABLET PO (08:17)
[2022-04-29] MEDS: TAMSULOSIN HCL 0.4 MG CAPSULE 0.8 MG PO (08:17)
[2022-04-29] MEDS: ASPIRIN 81 MG ENTERIC TABLET PO (08:17)
[2022-04-29] MEDS: CLOPIDOGREL BISULFATE 75 MG TABLET PO (08:17)
[2022-04-29] MEDS: GABAPENTIN 300 MG CAPSULE PO ×2 (08:18→13:50)
[2022-04-29] MEDS: carvediloL 6.25 MG TABLET PO (08:18)
[2022-04-29] MEDS: amLODIPine BESYLATE 5 MG TABLET 10 MG PO (08:18)
[2022-04-29] MEDS: ATORVASTATIN 40 MG TABLET PO (08:18)
[2022-04-29] MEDS: guaiFENesin 12 HR 600 MG TABCR PO (08:18)
[2022-04-29] MEDS: predniSONE 20 MG TABLET 40 MG PO (08:18)
[2022-04-29] MEDS: MUPIROCIN 2% OINT 22 GM TUBE 1 APPLIC EACH NARE (10:47)
[2022-04-29] MEDS: MICONAZOLE NITRATE 2% CREAM 30 GM TUBE 1 APPLIC TOPICAL (10:48)
[2022-04-29] MEDS: CLOBETASOL PROPIONATE 0.05% CREAM 30 GM 1 APPLIC TOPICAL (10:48)
--- NOTE | 2022-04-29 11:42 | P.DS_ITS ---
DS: Admitting Diagnosis Discharge Date 04/29/2022 Admitting Diagnosis COPD Severe chronic constipation Diabetes mellitus type 2 AK I Lactic acidosis DS: Discharge Diagnosis Discharge Diagnosis (1) Acute exacerbation of chronic obstructive pulmonary disease: Code(s): J44.1 - Chronic obstructive pulmonary disease with (acute) exacerbation Status: Acute Assessment and Plan: * Increased wheezing, dyspnea and change in sputum production quantity, consistency and color. Patient was incarcerated until November of this year. Additionally, he is poorly controlled diabetic and was hospitalized in January at this facility for COPDAE. * Continue prednisone 40 mg daily x5 days, duonebs scheduled, mucinex PO BID. * Completed 5 days of empiric levaquin 750 mg PO daily. stop 04/28 * sputum culture contaminated. * MRSA nasal swab positive for MRSA. Repeat CXR shows no acute infiltrates to suggest pneumonia. * He is on Spiriva at home, but has been using his albuterol inhaler 100 times in the last 2 weeks. He would benefit from triple therapy LAMA, LABA, ICS. * Needs to quit smoking. (2) Constipation: Code(s): K59.00 - Constipation, unspecified Status: Acute Assessment and Plan: * No BM x13 days, per patient. * Mag citrate PO x1 on 04/24 without effect. * MiraLax daily and senna S increased 2 tabs Q12 not effective & stopped 04/28 * 04/26 CT abd/pelvis with IV contrast without obstruction. * 04/27 Ducolax suppository x1 and fleet enema without success. * 04/28 Soap suds enema x1, miralax bowel prep x1/2 dose. Large BM after soap s uds enema, per nursing. * Add Linzess 145 mg PO daily for chronic constipation, start 04/29 (3) Diabetic neuropathy: Code(s): E11.40 - Type 2 diabetes mellitus with diabetic neuropathy, unspecified Status: Acute Assessment and Plan: * Uncontrolled. Blood glucose >300 but improved from yesterday. Home regimen is reported to be 50 units lantus at HS and Novolog 20-30 units (including sliding scale) with meals. Patient is being treated with steroids. Last A1c 01/2022 was 10.3% * Weaning steroids. Basal/bolus insulin adjusted last 04/26. If still elevated, consider increasing tomorrow. * Lantus to 60 units at HS, aspart 30 units with meals plus sliding scale. * Consistent carb diet. Accu-checks AC/HS. * Gabapentin increased to 300 t.i.d. for c/o of peripheral neuropathy this hospital stay. (4) ELOISA (acute kidney injury): Code(s): N17.9 - Acute kidney failure, unspecified Status: Resolved Assessment and Plan: * Increased BUN/Creatinine following IV contrast. * Likely has some underlying CKD from HTN and DMT2 * Improved after 500 cc NS bolus 04/27. * Monitor I/O. (5) Lactic acidosis: Code(s): E87.2 - Acidosis Status: Resolved Assessment and Plan: * Unclear etiology. Lactic acid fluctuating up and down. Likely secondary to lab collection/transport error. * ?tissue hypoxia but does not appear to be septic. Patient has multiple c omorbidities, including possible renal cell carcinoma; diabetes but not on metformin; no s/s DKA, shock or systemic hypoperfusion, HIV negative and no h/o alcoholism. ?bowel related. * 04/28 Lactic acid 1.8 and normal. No concerns for sepsis. (6) Shortness of breath: Code(s): R06.02 - Shortness of breath Status: Resolved Assessment and Plan: * COPD exacerbation management as above. CHF exacerbation less likely. * Echo with normal LV systolic function, grade 1 d
--- NOTE | 2022-04-29 11:42 | PM.DS ---
DS: Admitting Diagnosis Discharge Date 04/29/2022 Admitting Diagnosis COPD Severe chronic constipation Diabetes mellitus type 2 AK I Lactic acidosis DS: Discharge Diagnosis Discharge Diagnosis (1) Acute exacerbation of chronic obstructive pulmonary disease: Code(s): J44.1 - Chronic obstructive pulmonary disease with (acute) exacerbation Status: Acute Assessment and Plan: Increased wheezing, dyspnea and change in sputum production quantity, consistency and color. Patient was incarcerated until November of this year. Additionally, he is poorly controlled diabetic and was hospitalized in January at this facility for COPDAE. Continue prednisone 40 mg daily x5 days, duonebs scheduled, mucinex PO BID. Completed 5 days of empiric levaquin 750 mg PO daily. stop 04/28 sputum culture contaminated. MRSA nasal swab positive for MRSA. Repeat CXR shows no acute infiltrates to suggest pneumonia. He is on Spiriva at home, but has been using his albuterol inhaler 100 times in the last 2 weeks. He would benefit from triple therapy LAMA, LABA, ICS. Needs to quit smoking. (2) Constipation: Code(s): K59.00 - Constipation, unspecified Status: Acute Assessment and Plan: No BM x13 days, per patient. Mag citrate PO x1 on 04/24 without effect. MiraLax daily and senna S increased 2 tabs Q12 not effective & stopped 04/28 04/26 CT abd/pelvis with IV contrast without obstruction. 04/27 Ducolax suppository x1 and fleet enema without success. 04/28 Soap suds enema x1, miralax bowel prep x1/2 dose. Large BM after soap suds enema, per nursing. Add Linzess 145 mg PO daily for chronic constipation, start 04/29 (3) Diabetic neuropathy: Code(s): E11.40 - Type 2 diabetes mellitus with diabetic neuropathy, unspecified Status: Acute Assessment and Plan: Uncontrolled. Blood glucose >300 but improved from yesterday. Home regimen is reported to be 50 units lantus at HS and Novolog 20-30 units (including sliding scale) with meals. Patient is being treated with steroids. Last A1c 01/2022 was 10.3% Weaning steroids. Basal/bolus insulin adjusted last 04/26. If still elevated, consider increasing tomorrow. Lantus to 60 units at HS, aspart 30 units with meals plus sliding scale. Consistent carb diet. Accu-checks AC/HS. Gabapentin increased to 300 t.i.d. for c/o of peripheral neuropathy this hospital stay. (4) ELOISA (acute kidney injury): Code(s): N17.9 - Acute kidney failure, unspecified Status: Resolved Assessment and Plan: Increased BUN/Creatinine following IV contrast. Likely has some underlying CKD from HTN and DMT2 Improved after 500 cc NS bolus 04/27. Monitor I/O. (5) Lactic acidosis: Code(s): E87.2 - Acidosis Status: Resolved Assessment and Plan: Unclear etiology. Lactic acid fluctuating up and down. Likely secondary to lab collection/transport error. ?tissue hypoxia but does not appear to be septic. Patient has multiple comorbidities, including possible renal cell carcinoma; diabetes but not on metformin; no s/s DKA, shock or systemic hypoperfusion, HIV negative and no h/o alcoholism. ?bowel related. 04/28 Lactic acid 1.8 and normal. No concerns for sepsis. (6) Shortness of breath: Code(s): R06.02 - Shortness of breath Status: Resolved Assessment and Plan: COPD exacerbation management as above. CHF exacerbation less likely. Echo with normal LV systolic function, grade 1 diastolic dysfunction and EF 55% (7) MRSA (methicillin resistant Staphylococcus aureus) colonization: Code(s): Z22.322 - Carrier or suspected carrier of Methicillin resistant Staphylococcus aureus Status: Chronic Assessment and Plan: Bactroban 1 application each nares x 5 days Consider hibiclens wash daily when psoriasis more controlled. (8) Dyslipidemia: Code(s): E78.5 - Hyperlipidemia, u
[2022-04-29 11:48] LABS: Glucose Point of Care 84 mg/dl (65-105)
== END 2022-04-29 14:00 | disposition home or self-care (01) | DRG 191 ==
LOC: ANHED 21:31 → ANH3MED 21:53
PROVIDERS: Nurse Practitioner Family; Admitting Provider Internal Medicine; Emergency Provider Emergency Medicine; PCP Physician Assistant; Visit Provider Nurse Practitioner Family
DX: J44.1 Chronic obstructive pulmonary disease with (acute) exacerbation (principal); C64.9 Malignant neoplasm of unspecified kidney, except renal pelvis; E87.2 Acidosis; N17.9 Acute kidney failure, unspecified; Z68.41 Body mass index [BMI] 40.0-44.9, adult; E66.01 Morbid (severe) obesity due to excess calories; Z20.822 Contact with and (suspected) exposure to COVID-19; E11.22 Type 2 diabetes mellitus with diabetic chronic kidney disease; I12.9 Hypertensive chronic kidney disease with stage 1 through stage 4 chronic kidney disease, or unspecified chronic kidney disease; N18.9 Chronic kidney disease, unspecified; Z22.322 Carrier or suspected carrier of Methicillin resistant Staphylococcus aureus; E11.65 Type 2 diabetes mellitus with hyperglycemia; K59.00 Constipation, unspecified; E11.42 Type 2 diabetes mellitus with diabetic polyneuropathy; E78.5 Hyperlipidemia, unspecified; I73.9 Peripheral vascular disease, unspecified; L40.9 Psoriasis, unspecified; I25.10 Atherosclerotic heart disease of native coronary artery without angina pectoris; B19.20 Unspecified viral hepatitis C without hepatic coma; Z95.1 Presence of aortocoronary bypass graft; Z86.19 Personal history of other infectious and parasitic diseases; Z95.820 Peripheral vascular angioplasty status with implants and grafts; Z87.891 Personal history of nicotine dependence
CPT/HCPCS: 36415; 36569; 36600; 71045; 71046; 74018; 74177; 80048; 80053; 81001; 82805; 82948; 83605; 83735; 83880; 84439; 84443; 84484; 85025; 85610; 85730; 86703; 87040; 87070; 87081; 87205; 87522; 93005; 94640; 94660; 96374; 96375; 96376; 99285; A9270; C1751; C8929; C9803; G0378; G0432; J1644; J1815; J1940; J2930; J7030; J7040; J7512; Q9957; Q9967; U0003; U0005

== ENCOUNTER 2022-07-20 16:41 | Inpatient (IN) | payer MEDICARE, MEDICAID, SELFPAY ==
[2022-07-20] VITALS (8 sets, daily range): BP systolic 95–127; BP diastolic 48–80; PULSE 83–94; RESP 16–23; TEMP 36.7–36.9; O2SAT 92–96
--- NOTE | ~2022-07-20 | XR_ITS ---
EXAM: XR abdomen obstructive series DATE: 07/20/2022 19:15 HISTORY: constipation x 10 days W/ generalized abdominal pain . COMPARISON: None available. FINDINGS: Clear lung bases. Lower lumbar fusion hardware. Paucity of bowel gas. No organomegaly. No abnormal abdominal calcification. Degenerative changes in the spine. Vascular calcifications. IMPRESSION: Paucity of bowel gas limits the ability to evaluate for ileus or obstruction. Reviewed, dictated and finalized at location K. IMPRESSION: Paucity of bowel gas limits the ability to evaluate for ileus or ob struction.
--- NOTE | ~2022-07-20 | US_ITS ---
EXAMINATION: US venous doppler UE DATE: 07/22/2022 10:50 INDICATION: Hypertension. High cholesterol. COPD. Smoker. TECHNIQUE: Osman scale images with and without compression and Doppler images of the right and left up per extremity veins were obtained. COMPARISON: None. FINDINGS: The right and left internal jugular vein, subclavian vein, axillary vein, brachial veins, basilic vei n, cephalic vein, radial vein, and ulnar vein are patent. IMPRESSION: 1. Patent bilateral upper extremity veins. No evidence of deep venous thrombosis. Reviewed, dictated and finalized at location A. IMPRESSION: 1. Patent bilateral upper extremity veins. No evidence of deep venous thrombosi s.
--- NOTE | ~2022-07-20 | US_ITS ---
EXAMINATION:US venous doppler LE BI INDICATION:Evaluate for DVT. TECHNIQUE: Multiple grayscale, color flow and Doppler images of the right and left lower extremity de ep venous systems were obtained and reviewed. COMPARISON:No prior studies for comparison. FINDINGS: The common femoral, superficial femoral and popliteal veins demonstrate normal respiratory variation, augmentation and compressibility. Color flow is also seen within the posterior tibial, pe roneal, greater saphenous and profunda veins. IMPRESSION: 1: No lower extremity deep venous thrombosis. Reviewed, dictated and finalized at location A.
--- NOTE | ~2022-07-20 | XR_ITS ---
EXAMINATION: XR chest 2V Exam Date/Time: 07/20/2022 19:04 CDT HISTORY: SOB,CP, bilateral le weakness/numbness x 2 days hx copd Comparison: 04/28/2022. RESULT: Lines, tubes, and devices: Mediastinal surgical clips. Multiple fractured sternotomy wires, in stabl e position. Lungs and pleura: Emphysematous change. Cardiomediastinal silhouette: Stable. Other: No acute osseous or upper abdominal finding. IMPRESSION: No acute cardiopulmonary process. Reviewed, dictated and finalized at location K.
--- NOTE | ~2022-07-20 | CT_ITS ---
EXAMINATION: CT abdomen pelvis wo con DATE: 07/20/2022 21:09 INDICATION: constipation x 10 days, gen abd pain TECHNIQUE: Computed tomography (CT) of the abdomen and pelvis was performed without intravenous contr ast. Automated exposure control and iterative reconstruction technique were employed. The dose-length product was 1329.49 mGy-cm. COMPARISON: 04/26/2022. FINDINGS: Lower thorax: Heavy coronary artery calcification. Liver: Normal. Biliary/Gallbladder: Gallbladder is normal. No bile duct dilation. Pancreas: No mass or duct dilation. Fatty atrophy. Spleen: Granulomatous calcification. Mild splenomegaly. Adrenals:No mass. Kidneys: Redemonstration of the mixed density right midpole mass containing fat and calcifications. L eft midpole cyst. Scattered bilateral nonobstructive calculi. No hydronephrosis. GI tract: No small or large bowel dilation. Normal appendix. Diverticulosis without diverticulitis. Mesentery/Peritoneum: No ascites, mass, or free air. Retroperitoneum: No mass. Atherosclerotic abdominal aortic and/or arterial calcifications. Pelvis: Bladder wall thickening with chronic fatty infiltration likely secondary to outlet compromise from prostatomegaly. Soft Tissues: Anterior abdominal wall subcutaneous edema, possibly due to contusion or injection site s. Uncomplicated bilateral fat-containing inguinal hernias. Bones: No acute osseous finding. Uncomplicated posterior lumbar fusion hardware. IMPRESSION: No acute abdominopelvic process detected. Splenomegaly. Unchanged indeterminate right midpole renal l esion, may represent bland post surgical change with adjacent fat packing, focal infarct/infection or recurrent/residual tumor are not excluded. Reviewed, dictated and finalized at location K. IMPRESSION: No acute abdominopelvic process detected. Splenomegaly. Unchanged indeterminate right midpole renal lesion, may represent bland post surgical change with siddharth cent fat packing, focal infarct/infection or recurrent/residual tumor are not e xcluded.
--- NOTE | ~2022-07-20 | CT_ITS ---
EXAMINATION: CTA chest PE protocol DATE: 07/22/2022 12:53 INDICATION: Shortness of breath, chest pain TECHNIQUE: Computed tomography angiography (CTA) of the chest was performed with 100 mL Omnipaque-350 intravenous contrast timed to evaluate the pulmonary arteries. Coronal maximum intensity projection 3D-reconstructions were created by the technologist. Automated exposure control and iterative reconst ruction technique were employed. Exam dose: 1026.41 mGy-cm total exam DLP. COMPARISON: 07/20/2022 PA and lateral chest FINDINGS: There is diagnostic contrast enhancement of the pulmonary arteries and no evidence of pulmo nary embolism. There is extensive thoracic aortic as well as great vessel and coronary artery calcification. No thor acic aortic aneurysm or dissection is detected. Status post sternotomy and probable coronary bypass g raft surgery. Cardiomegaly. No pericardial or pleural effusion. No hilar or mediastinal mass lesion or lymphadenopa thy. Mild discoid atelectasis in the lower lung zones. No pulmonary infiltrate or consolidation or pulmona ry mass lesion. Small sliding hiatal hernia. Normal morphology of the adrenal glands. Degenerative disc disease is noted in the lower cervical spine. Diffuse idiopathic skeletal hyperosto sis of the thoracic spine. No suspicious osteolytic or osteoblastic lesions are noted. IMPRESSION: No evidence of pulmonary embolism Cardiomegaly Reviewed, dictated and finalized at Location A. Reviewed, dictated and finalized at location B.
--- NOTE | ~2022-07-20 | CT_ITS ---
EXAMINATION: CT abdomen pelvis wo con DATE: 07/25/2022 17:17 INDICATION: Generalized abdominal pain, abdominal distention. Constipation for 10 days. History of re nal cell carcinoma. TECHNIQUE: Computed tomography (CT) of the abdomen and pelvis was performed without intravenous contr ast. Automated exposure control and iterative reconstruction technique were employed. Exam dose: 127 1.69 mGy-cm total exam DLP. COMPARISON: 07/20/2022 CT abdomen pelvis 04/26/2022 CT abdomen pelvis FINDINGS: The lung bases are clear of infiltrate or consolidation. No pericardial or pleural effusion . The liver, gallbladder, bile ducts and spleen are unremarkable other than occasional hepatic and sple fermin calcified granulomas. Normal morphology of the adrenal glands. No pancreatic mass lesion or calcification or ductal dilatat ion. No bile duct dilatation. The kidneys appears stable compared to 04/26/2022 considering that this is a noncontrast versus prior contrast CT examination. No significant new or enlarging mass lesion is evident in either kidney. The re are bilateral renal artery calcifications also extensive calcification of the abdominal aorta but no abdominal aortic aneurysm. Prostate enlargement and minimal calcification. The urinary bladder is unremarkable. Normal appendix. Minimal colonic diverticulosis; no CT evidence of diverticulitis. No bowel obstructi on, bowel wall thickening, pneumatosis or intraperitoneal free air. Status post posterior surgical fusion at L4-S1 with pedicle screws and rods and interbody spinal fusi on at L5-S1. Diffuse idiopathic skeletal hyperostosis of the lower thoracic and upper lumbar spine. No suspicious osteolytic or osteoblastic lesions are noted. IMPRESSION: No bowel obstruction or intraperitoneal free air Minimal sigmoid colon diverticulosis; no evidence of diverticulitis Normal appendix Stable appearance of kidneys since 04/26/2022 Reviewed, dictated and finalized at Location A. Reviewed, dictated and finalized at location A.
--- NOTE | ~2022-07-20 | US_ITS ---
EXAMINATION: US arterial duplex LE DATE: 07/20/2022 18:38 INDICATION: Peripheral arterial disease. TECHNIQUE: Multiple grayscale and Doppler ultrasound images of the lower limbs were obtained. COMPARISON: CT abdomen and pelvis 04/26/2022 FINDINGS: Peak systolic velocity is 106 cm/s right common femoral artery and 120 cm/s in profunda fem oral artery. There is a stent in right superficial femoral artery. Peak systolic velocity is 91 cm/s in superficial femoral artery, 78 cm/s in popliteal artery, 73 cm/s in posterior tibial artery, and 4 0 cm/s in anterior tibial artery. Peroneal artery was not evaluated. Peak systolic velocity is 103 cm/s left common femoral artery and 37 cm/s in profunda femoris artery. There is a stent in superficial femoral artery. Peak systolic velocity is 82 cm/s in superficial fem oral artery, 51 cm/s in popliteal artery, 19 cm/s in anterior tibial artery, and 59 cm/s in posterior tibial artery. Peroneal artery was not evaluated. IMPRESSION: 1. Patent stents in the superficial femoral arteries. 2. Increased velocity gradients in left profunda femoral artery and left anterior tibial artery, cons istent with moderate to severe stenosis. Reviewed, dictated and finalized at location A. IMPRESSION: 1. Patent stents in the superficial femoral arteries. 2. Increased velocity gradients in left profunda femoral artery and left anteri or tibial artery, consistent with moderate to severe stenosis.
--- NOTE | 2022-07-20 18:06 | ECG_ITS ---
Measurements Intervals [place] Rate: 91 P: 52 SC: 166 QRS: 95 QRSD: 86 T: 52 QT: 356 QTc: 439 Interpretive Statements SINUS RHYTHM RIGHT AXIS DEVIATION POOR R WAVE PROGRESSION, CONSIDER ANTERIOR INFARCT BASELINE ARTIFACT- AVF ABNORMAL ECG COMPARED TO ECG 04/23/2022 20:35:28 NO SIGNIFICANT CHANGES Electronically Signed On 07-20-2022 20:41:55 CDT by Jayjay Rivera D.O.
--- NOTE | 2022-07-20 18:08 | ED.GENADULT ---
HPI - General Adult General Chief complaint: Weakness Stated complaint: fall 3 times, bilateral leg numbness Time Seen by Provider: 07/20/22 17:53 History of Present Illness HPI narrative: Patient is a 61-year-old male with a history of COPD, history of IV drug use, recently incarcerated was released in nov 2021, PAD status post SFA stenting, renal cell carcinoma, hepatitis B, HTN, DM, here for evaluation of multiple medical complaints. Patient mostly is complaining of some bilateral lower extremity numbness and pain. Patient was told that he has an 80% occlusion in his arteries and was told to follow-up with the vascular surgeon after his most recent hospitalization. Patient saw the surgeon who recommended a bypass procedure. States that his pain and numbness has worsened over the past several days to the point where he feels weak and has fallen 3 times. Denies head injury in the falls. Additionally complaining of chest pain and shortness of breath. He is attempted his home inhaler in the past with improvement, states he has not attempted in the past 3 days. Chest pain is described as a tightness in the center of his chest, intermittent in nature, not worse with exertion with no obvious triggers. Additionally states he has not had a bowel movement for the past 10 days, the last time he was here he required a soapsuds enema with relief of his constipation. Related Data Home Medications Medication Instructions Recorded Confirmed atorvastatin 80 mg tablet 80 mg PO DAILY 07/20/22 07/21/22 dapagliflozin 10 mg tablet 10 mg PO DAILY 07/20/22 07/21/22 (Farxiga) fluticasone fur. 100 mcg-umeclid 1 inh inhalation DAILY 07/20/22 07/21/22 62.5 mcg-vilant 25 mcg inhalat.powder (Trelegy Ellipta) gabapentin 300 mg capsule 300 mg PO TID 07/20/22 07/21/22 insulin aspart U-100 100 unit/mL 50 unit subcut TIDWM 07/20/22 07/21/22 subcutaneous solution (Novolog U-100 Insulin aspart) metformin 500 mg tablet,extended 500 mg PO DAILY 07/20/22 07/21/22 release 24 hr albuterol sulfate 2.5 mg/3 mL 2.5 mg inhalation Q4-6H PRN 07/21/22 07/21/22 (0.083 %) solution for nebulization Shortness Of Breath clobetasol 0.05 % topical cream 1 applic topical BID 07/21/22 07/21/22 clopidogrel 75 mg tablet 75 mg PO DAILY 07/21/22 07/21/22 insulin glargine 100 unit/mL 60 units subcut HS 07/21/22 07/21/22 subcutaneous solution (Lantus U-100 Insulin) Allergies Allergy/AdvReac Type Severity Reaction Status Date / Time No Known Allergies Allergy Verified 07/21/22 01:07 [facility] Past Medical History Medical History (Updated 04/28/22 @ 16:05 by Nicole Whitman APRN) COPD (chronic obstructive pulmonary disease) Coronary artery disease Diabetes type 2, uncontrolled Dyslipidemia Hepatitis C HTN (hypertension) with goal to be determined Peripheral arterial disease Renal cell carcinoma Surgical History Surgical History (Updated 02/22/22 @ 21:02 by Adela Hollis APRN) History of lumbosacral spine surgery Hx of CABG Status post peripheral artery angioplasty with insertion of stent Family History Family History (Updated 07/21/22 @ 00:04 by Polina Sierra RN) Sibling Cerebrovascular accident Father Acute myocardial infarction Grandparent Congestive heart failure Other Unknown family medical history Social History Social History (Updated 02/22/22 @ 21:03 by Adela Hollis APRN) Smoking packs per day: 1 Smoking cigarettes per day: 20.0 Years smoked: 20 Smoking pack-years: 20.00 Smoking status: Former smoker Tobacco type: cigarettes Smoking end date: 06/01/22 Alcohol intake: former Substance use: former Substance use type: crack/cocaine Last use: 2016 Spiritual care concerns: Yes (episcopalian) Exam Narrative: APPEARANCE: Well appearing, no pain in distress, well-nourished. Head: Normocephalic and atraumatic. EYES: PERRLA/EOMI, conjunctivae clear NOSE: No nasal drainage EARS: Ext
[2022-07-20] MEDS: ALBUTEROL SULFATE NEB 2.5 MG/3 ML INH 5 MG INHALATION ×2 (18:18→20:48)
[2022-07-20] MEDS: ASPIRIN 81 MG CHEWABLE TABLET 324 MG PO (18:30)
[2022-07-20 19:58] LABS: INR 1.1; Prothrombin Time 13.5 Seconds (11.1-14.7)
[2022-07-20 19:59] LABS: Alanine Aminotransferase 28 U/L (6-50); Albumin Level 4.2 g/dL (3.5-5.1); Alkaline Phosphatase 78 U/L (38-126); Anion Gap 13 mmol/L (8-16); Aspartate Amino Transferase 27 U/L (17-59); Bilirubin,Total 0.5 mg/dL (0.2-1.3); Blood Urea Nitrogen 36 mg/dL (9-20); Carbon Dioxide 23 mmol/L (22-30); Chloride 104 mmol/L (98-107); Estimated CRCL calculation 33 ml/min; Estimated Glomerular Filt Rate 26; Glucose 137 mg/dL (65-110); Magnesium 2.1 mg/dL (1.6-2.3); Partial Thromboplastin Time 30.1 SECONDS (22.3-36.8); Potassium 4.4 mmol/L (3.4-5.0); Sodium 140 mmol/L (137-145)
[2022-07-20 20:19] LABS: NT Pro B Type Natriuretic Pept 829 pg/mL (5-100); Troponin I 0.117 ng/mL (0.000-0.034)
[2022-07-20 21:04] LABS: Basophils Absolute Auto 0.1 K/mm3 (0.0-0.1); Basophils Percent Auto 0.7 % (0.2-1.2); Eosinophils Absolute Auto 0.3 K/mm3 (0-0.3); Eosinophils Percent Auto 2.9 % (0-4.4); Hematocrit 44.7 % (42.0-52.0); Hemoglobin 13.9 g/dL (14.0-18.0); Immature Granulocyte Absolute 0.05 K/mm3 (0.00-0.031); Immature Granulocyte Percent A 0.5 % (0-0.5); Lymphocytes Absolute Auto 1.94 K/mm3 (0.9-3.2); Lymphocytes Percent Auto 18.6 % (18.3-44.2); Mean Corpuscular HGB Conc 31.1 g/dl (32-36); Mean Corpuscular Hemoglobin 28.2 pg (26-34); Mean Corpuscular Volume 90.7 fl (80-100); Monocytes Percent Auto 9.2 % (2.6-8.5); Neutrophils Absolute Auto 7.1 K/mm3 (1.3-6.7); Neutrophils Percent Auto 68.1 % (45.5-73.1); Platelet Count Result 234 k/mm3 (150-375); Red Blood Count 4.93 M/mm3 (4.6-6.20); Red Cell Distribution Width 15.1 % (11.5-14.5); White Blood Count 10.4 K/mm3 (4.5-10.0)
[2022-07-20] MEDS: methylPREDNISolone SOD SUCC 125 MG VIAL IV PUSH (21:51)
[2022-07-20] MEDS: ENOXAPARIN 120 MG/0.8 ML SYRINGE 110 MG SUB-Q (21:52)
[2022-07-20] MEDS: SODIUM CHLORIDE 0.9% IV 1,000 ML 999 ML IV CONT (21:55)
--- NOTE | 2022-07-20 22:39 | PM.IMHP ---
H&P: HPI History of Present Illness Date/Time: 07/20/22 22:39 Chief Complaint: Chest pain Narrative: This is a 62-year-old male with past medical history significant for coronary artery disease status post coronary artery bypass graft, type diabetes mellitus, hypertension, former smoker, hepatitis-C, COPD. patient presents to the emergency room with complaints of bilateral lower extremity weakness had several complaints also chest pain. Patient denies any fevers, rigors, chills, has cough with white phlegm not different from his usual, has some pedal swelling, no nausea, no vomiting, no abdominal pain, no PND, no orthopnea, chest pain is localized to the retrosternal area nonradiating. Patient states that he has not been feeling well now for several weeks he was laid out of correction earlier in the year. [facility], LATER [facility] Past Medical History Medical History COPD (chronic obstructive pulmonary disease) Coronary artery disease Diabetes type 2, uncontrolled Dyslipidemia Hepatitis C HTN (hypertension) with goal to be determined Peripheral arterial disease Renal cell carcinoma Surgical History Surgical History History of lumbosacral spine surgery Hx of CABG Status post peripheral artery angioplasty with insertion of stent Family History Family History Sibling Cerebrovascular accident Father Acute myocardial infarction Grandparent Congestive heart failure Other Unknown family medical history Social History Social History Smoking packs per day: 1 Smoking cigarettes per day: 20.0 Years smoked: 20 Smoking pack-years: 20.00 Smoking status: Former smoker Tobacco type: cigarettes Smoking end date: 06/01/22 Alcohol intake: former Substance use: former Substance use type: crack/cocaine Last use: 2016 Spiritual care concerns: No Meds Home Medications and Allergies Home Medications Medication Instructions Recorded Confirmed Type albuterol sulfate 90 mcg/actuation 2 puff inhalation Q4-6H PRN 02/27/22 07/21/22 Rx aerosol inhaler Shortness Of Breath 30 days #1 inh amlodipine 10 mg tablet 10 mg PO DAILY 30 days #30 tabs 02/27/22 07/21/22 Rx aspirin 81 mg tablet,delayed 81 mg PO DAILY 30 days #30 tabs 02/27/22 07/21/22 Rx release carvedilol 3.125 mg tablet (Coreg) 3.125 mg PO BID 30 days #60 tabs 02/27/22 07/21/22 Rx furosemide 20 mg tablet 20 mg PO DAILY 30 days #30 tabs 02/27/22 07/21/22 Rx lisinopril 20 mg tablet 20 mg PO DAILY 30 days #30 tabs 02/27/22 07/21/22 Rx polyethylene glycol 3350 17 gram 17 g PO QAM 30 days 02/27/22 07/21/22 Rx oral powder packet (Miralax) tamsulosin 0.4 mg capsule 0.8 mg PO HS 30 days #60 caps 02/27/22 07/21/22 Rx tiotropium bromide 18 mcg capsule 1 cap inhalation DAILY 30 days #1 02/27/22 07/21/22 Rx with inhalation device inh linaclotide 145 mcg capsule 145 mcg PO DAILY@0630 30 days #30 04/29/22 07/21/22 Rx (Linzess) caps atorvastatin 80 mg tablet 80 mg PO DAILY 07/20/22 07/21/22 History dapagliflozin 10 mg tablet 10 mg PO DAILY 07/20/22 07/21/22 History (Farxiga) fluticasone fur. 100 mcg-umeclid 1 inh inhalation DAILY 07/20/22 07/21/22 History 62.5 mcg-vilant 25 mcg inhalat.powder (Trelegy Ellipta) gabapentin 300 mg capsule 300 mg PO TID 07/20/22 07/21/22 History insulin aspart U-100 100 unit/mL 50 unit subcut TIDWM 07/20/22 07/21/22 History subcutaneous solution (Novolog U-100 Insulin aspart) metformin 500 mg tablet,extended 500 mg PO DAILY 07/20/22 07/21/22 History release 24 hr albuterol sulfate 2.5 mg/3 mL 2.5 mg inhalation Q4-6H PRN 07/21/22 07/21/22 History (0.083 %) solution for nebulization Shortness Of Breath clobetasol 0.05 % topical cream 1 applic topical BID 07/21/22 07/21/22 History clopidogrel 75 mg tablet 75 mg PO DAILY 0
[2022-07-20 22:58] LABS: Troponin I 0.106 ng/mL (0.000-0.034)
[2022-07-20 23:42] LABS: SARS-CoV-2 RNA PCR Negative
[2022-07-21] VITALS (21 sets, daily range): BP systolic 93–179; BP diastolic 41–84; PULSE 72–103; RESP 14–20; TEMP 36.3–36.7; O2SAT 91–98; BMI 38.4
--- NOTE | 2022-07-21 00:10 | PC.NURSE ---
This patient, Flavio Vigil, was admitted to IMU Room 206-01. Patient/family oriented to hospital policies and general routines including ID bracelet, bed and alarms, visiting hours, pain management, procedures, bathroom and other care routines, personal items, smoking policy, room service/diet, and visiting hours. Information on how to activate the Rapid Response Team has been discussed. Patient/Family are encouraged to report perceived risks to care and to ask questions if they do not understand what they are told or what they should do.
[2022-07-21] MEDS: traMADol HCL (*CRX) 50 MG TABLET PO ×3 (01:49→23:22)
[2022-07-21 02:08] LABS: Troponin I 0.065 ng/mL (0.000-0.034)
[2022-07-21] MEDS: LINACLOTIDE 145 MCG CAPSULE PO (06:20)
[2022-07-21 08:09] LABS: Glucose Point of Care 298 mg/dl (65-105)
[2022-07-21] MEDS: GABAPENTIN 300 MG CAPSULE PO ×3 (08:10→17:08)
[2022-07-21] MEDS: polyethylene glycoL 3350 17 GM POWD.PACK PO (08:10)
[2022-07-21] MEDS: ATORVASTATIN 40 MG TABLET 80 MG PO (08:10)
[2022-07-21] MEDS: CLOBETASOL PROPIONATE 0.05% CREAM 30 GM 1 APPLIC TOPICAL ×2 (08:10→17:08)
[2022-07-21] MEDS: CLOPIDOGREL BISULFATE 75 MG TABLET PO (08:10)
[2022-07-21] MEDS: amLODIPine BESYLATE 5 MG TABLET 10 MG PO (08:10)
[2022-07-21] MEDS: ASPIRIN 81 MG ENTERIC TABLET PO (08:11)
[2022-07-21] MEDS: INSULIN ASPART (*BKC) 100 UNITS/ML SUB-Q ×3 (08:11→18:50)
[2022-07-21] MEDS: carvediloL 3.125 MG TABLET PO ×2 (08:11→18:48)
[2022-07-21] MEDS: FLUTICASONE/UMECLIDIN/VILANTER 100-62.5-25 MCG ELLIPTA 1 PUFF INHALATION (08:23)
[2022-07-21] MEDS: diphenhydrAMINE HCl CAP 25 MG CAPSULE 50 MG PO ×2 (11:43→18:58)
[2022-07-21 12:04] LABS: Glucose Point of Care 327 mg/dl (65-105)
[2022-07-21 14:18] LABS: Hematocrit 42.6 % (42.0-52.0); Hemoglobin 13.4 g/dL (14.0-18.0); Mean Corpuscular HGB Conc 31.5 g/dl (32-36); Mean Corpuscular Hemoglobin 28.3 pg (26-34); Mean Corpuscular Volume 90.1 fl (80-100); Mean Platelet Volume 11.2 fl (7.4-10.4); Platelet Count Result 223 k/mm3 (150-375); Red Blood Count 4.73 M/mm3 (4.6-6.20); Red Cell Distribution Width 14.7 % (11.5-14.5); White Blood Count 10.2 K/mm3 (4.5-10.0)
[2022-07-21 14:31] LABS: Albumin Level 4.2 g/dL (3.5-5.1); Anion Gap 18 mmol/L (8-16); Blood Urea Nitrogen 33 mg/dL (9-20); Calcium 8.7 mg/dL (8.4-10.2); Carbon Dioxide 18 mmol/L (22-30); Chloride 101 mmol/L (98-107); Estimated CRCL calculation 53 ml/min; Estimated Glomerular Filt Rate 47; Glucose 363 mg/dL (65-110); Phosphorus 4.3 mg/dL (2.5-4.5); Sodium 137 mmol/L (137-145)
--- NOTE | 2022-07-21 14:32 | PCNSR ---
On 07/21/22, the student, Wilberto Oliver, provided care and completed [employer] documentation on this patient. I have reviewed the student's documentation and agree with the findings.
--- NOTE | 2022-07-21 14:36 | PM.CNCAR ---
Assessment and Plan Assessment and plan (1) Elevated troponin: Code(s): R77.8 - Other specified abnormalities of plasma proteins Status: Acute (2) Renal cell carcinoma: Code(s): C64.9 - Malignant neoplasm of unspecified kidney, except renal pelvis Status: Chronic (3) Shortness of breath: Code(s): R06.02 - Shortness of breath Status: Resolved (4) ELOISA (acute kidney injury): Code(s): N17.9 - Acute kidney failure, unspecified Status: Resolved (5) Dyslipidemia: Code(s): E78.5 - Hyperlipidemia, unspecified Status: Chronic (6) Peripheral arterial disease: Code(s): I73.9 - Peripheral vascular disease, unspecified Status: Chronic (7) Coronary artery disease: Code(s): I25.10 - Atherosclerotic heart disease of [place] coronary artery without angina pectoris Status: Chronic (8) Diabetes type 2, uncontrolled: Status: Acute (9) HTN (hypertension) with goal to be determined: Code(s): I10 - Essential (primary) hypertension Status: Chronic (10) COPD (chronic obstructive pulmonary disease): Code(s): J44.9 - Chronic obstructive pulmonary disease, unspecified Status: Resolved Plan Patient has pleuritic and reproducible chest pain. Although his troponins were elevated (0.117 --> 0.106 --> 0.065) on admission that downtrended, this was in the setting of an ELOISA with SCr of 2.5 (baseline is normal). Clinical history and symptoms are not consistent with ACS. No s/s consistent with heart failure. Recent echocardiogram in April showed LVEF 50-55%, no significant valvular disease, however image quality was poor. Would repeat his BMP to reassess SCr. Continue with ASA, Plavix, high-intensity statin, amlodipine, beta-beau. Recommend to ambulate patient to assess his symptoms. May consider stress test. History of Present Illness History of Present Illness Consult date/time: 07/21/22 14:36 Requesting physician: Concepcion Oconnor PA-C Consult reason: chest pain Reason For Visit: chest pain, elevated troponin Narrative: Patient is a 62-year-old male with a history of CAD s/p CABG, PAD s/p stents, COPD, renal cell carcinoma, hepatitis B, HTN, DM who presented with shortness of breath and chest tightness. Patient reports that a few days ago, he developed food poisoning and was throwing up. When he was vomiting, he thought he felt a chest muscle pull and reports chest tightness since then. Also has chest tightness when he takes deep breaths. Patient states he feels like his belly is full. Currently only gets chest pain when he takes deep breaths. Has chest wall tenderness upon palpation of his sternum. Review of Systems Review of Systems: All systems reviewed & are unremarkable except as noted in HPI and below (HPI) [facility] Past Medical History Medical History COPD (chronic obstructive pulmonary disease) Coronary artery disease Diabetes type 2, uncontrolled Dyslipidemia Hepatitis C HTN (hypertension) with goal to be determined Peripheral arterial disease Renal cell carcinoma Surgical History Surgical History History of lumbosacral spine surgery Hx of CABG Status post peripheral artery angioplasty with insertion of stent Family History Family History Sibling Cerebrovascular accident Father Acute myocardial infarction Grandparent Congestive heart failure Other Unknown family medical history Social History Social History Smoking packs per day: 1 Smoking cigarettes per day: 20.0 Years smoked: 20 Smoking pack-years: 20.00 Smoking status: Former smoker Tobacco type: cigarettes Smoking end date: 06/01/22 Alcohol intake: former Substance use: former Substance use type: crack/cocaine Last use:
--- NOTE | 2022-07-21 16:07 | PM.CNPUL ---
Assessment and Plan Assessment and plan (1) Acute exacerbation of chronic obstructive pulmonary disease: Code(s): J44.1 - Chronic obstructive pulmonary disease with (acute) exacerbation Status: Acute Assessment and Plan: Patient carries diagnosis of COPD since 2019 on trilogy inhaler. I have no PFTs and no prior CT scans of the chest. He has the tobacco history of 61 pack years quit on 06/01/2022. He ran out of his medicines and presented with shortness of breath, 3 days worsening cough and change in phlegm volume and color. His chest x-ray shows no focal infiltrates his COVID RT PCR test is negative. There is no evidence of fluid overload on exam. Will send a D-dimer and if positive anticoagulate him with Lovenox 1 milligram/kilos tonight and reassess his kidney function in the morning to determine if a CT angiogram can be performed and if not consider a perfusion scan. I will treat for COPD exacerbation. I will discontinue his trelegy inhaler and place him on nebulized albuterol and ipratropium Q 6 hours. I would initiate azithromycin IV for tracheobronchitis at this time. Currently patient has no active wheezing following Solu-Medrol 125 given on 07/20. I will continue prednisone 40 mg p.o. q.day. Currently he is on room air with saturations 93%. Discussed with Dr. Clark. (2) SINDHU (obstructive sleep apnea): Code(s): G47.33 - Obstructive sleep apnea (adult) (pediatric) Status: Acute Assessment and Plan: obstructive sleep apnea diagnosed at [facility] on 06/09/2022 with an overnight CPAP titration on 06/11 and awaiting home CPAP setup. The patient has been started on hospital auto Pap 5-15 and he said that the settings felt good last night and he slept well. I will continue these for now. History of Present Illness History of Present Illness Consult date: 07/21/22 Chief complaint: chest pain, elevated troponin Narrative: 07/21/2022: This is a new pulmonary consult for shortness of breath and COPD exacerbation. 62-year-old man with a history of psoriasis started on Humira in 2014 but off recently and saw Dermatology 4 weeks ago and was given a cream and told them that he would need to restart a biologic agent, coronary artery disease status post CABG in 2017 with stents placed afterwards, kidney cancer, back surgery in 1999, obstructive sleep apnea diagnosed at [facility] on 06/09/2022 with an overnight CPAP titration on 06/11 and awaiting home CPAP setup, COPD diagnosed in 2019. patient smoked 1 and half packs per day from 1980 until 06/01/2022 for total of 61 pack years. Patient smoked 10 cigarettes of marijuana from [id number]. Patient snorted and free based cocaine from [id number]. Patient has no secondhand smoke exposure. 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 Patient is currently on disability. 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 On 07/15/2022 the patient ran out of his albuterol and trilogy inhaler. He developed shortness of breath. The next day he developed food poisoning was vomiting for 3 days. On 07/18 the patient developed cough with a new development of yellow and green phlegm production. His shortness of breath continued. Patient denied fever, chills, rigors. Patient presented to the emergency department on 07/20/2022 with falls, bilateral leg numbness and weakness. He also described chest pain and constipation for 10 days. He was noted to have bilateral wheezes, Room air saturations were 94%. White blood cell count was 10.4 with 2.9% [id number], Creatinine was 2.5 ( baseline 1.20 on 04/29/2022), troponins positive at 0.117, BNP was 829, COVID RT PCR test negative. HIV was negative on 04/24/2022. Chest x-ray showed no active disease. Patient was started on trilogy 100 and haler, Solu-Medrol 125 g
[2022-07-21 16:56] LABS: D Dimer 1.93 ug/mL (<0.48)
[2022-07-21 17:04] LABS: Glucose Point of Care 318 mg/dl (65-105)
[2022-07-21] MEDS: predniSONE 20 MG TABLET 40 MG PO (18:48)
[2022-07-21] MEDS: ENOXAPARIN 120 MG/0.8 ML SYRINGE 110 MG SUB-Q (18:49)
[2022-07-21] MEDS: INSULIN ASPART (*BKC) 100 UNITS/ML 25 UNITS SUB-Q (18:50)
--- NOTE | 2022-07-21 19:11 | PM.IMPN ---
Progress Note: A&P Assessment and Plan (1) Elevated troponin: Code(s): R77.8 - Other specified abnormalities of plasma proteins Status: Acute Assessment and Plan: 07/21/2022 interval history: patient is a 62-year-old male with history of CABG and significant peripheral vascular disease presented with chest pain and shortness upon arrival patient rubs or elevated patient seen by Cardiology and does not suspect acute coronary syndrome as patient has a pleuritic chest with elevated serum creatinine, patient with history of smoking seen by pulmonology suspect patient has exacerbation of COPD started the patient on steroid bronchodilator is also concern the patient may have a PE D-dimer is elevated will start the on therapeutic Lovenox, patient serum creatinine what is close to normal will order CTA of the chest, will do the lower extremity Doppler, will have a PT OT evaluate the patient and further recommendation to follow. (2) Coronary artery disease: Code(s): I25.10 - Atherosclerotic heart disease of [place] coronary artery without angina pectoris Status: Chronic Assessment and Plan: patient with history CABG, seen by cardiology does not suspect acute coronary syndrome (3) ELOISA (acute kidney injury): Code(s): N17.9 - Acute kidney failure, unspecified Status: Resolved Assessment and Plan: most likely secondary hydrate patient is being gently hydrated kidney function is improved (4) Acute exacerbation of chronic obstructive pulmonary disease: Code(s): J44.1 - Chronic obstructive pulmonary disease with (acute) exacerbation Status: Acute Assessment and Plan: 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 suspect exacerbation of COPD started the patient on steroid and bronchodilator as well as inhaled steroid (5) Diabetic neuropathy: Code(s): E11.40 - Type 2 diabetes mellitus with diabetic neuropathy, unspecified Status: Acute Assessment and Plan: will continue to monitor (6) Peripheral arterial disease: Code(s): I73.9 - Peripheral vascular disease, unspecified Status: Chronic Assessment and Plan: patient is seen by vascular surgeon in the past and will need to follow up as patient has significant claudication (7) Diabetes type 2, uncontrolled: Status: Acute Assessment and Plan: will continue home regimen and monitor with sliding (8) HTN (hypertension) with goal to be determined: Code(s): I10 - Essential (primary) hypertension Status: Chronic Assessment and Plan: will continue home regimen Subjective Date/time seen: 07/21/22 19:11 HPI narrative: Patient is a 61-year-old male with a history of COPD, history of IV drug use, recently incarcerated was released in nov 2021, PAD status post SFA stenting, renal cell carcinoma, hepatitis B, HTN, DM, here for evaluation of multiple medical complaints.? Patient mostly is complaining of some bilateral lower extremity numbness and pain.? Patient was told that he has an 80% occlusion in his arteries and was told to follow-up with the vascular surgeon after his most recent hospitalization.? Patient saw the surgeon who recommended a bypass procedure.? States that his pain and numbness has worsened over the past several days to the point where he feels weak and has fallen 3 times.? Denies head injury in the falls.? Additionally complaining of chest pain and shortness of breath.? He is attempted his home inhaler in the past with improvement, states he has not attempted in the past 3 days.? Chest pain is described as a tightness in the center of his chest, intermittent in nature, not worse with exertion with no obvious triggers.? Additionally states he has not had a bowel movement for the past 10 days, the last time he was here he required a soapsuds enema with relief of his constipation. 07/21/2022 interval history: patient is a 62-year-old male with history of CABG and significant peripher
[2022-07-21 20:12] LABS: Glucose Point of Care 397 mg/dl (65-105)
[2022-07-21] MEDS: INSULIN GLARGINE (*BKC) 100 UNITS/ML 60 UNITS SUB-Q (20:51)
[2022-07-21] MEDS: TAMSULOSIN HCL 0.4 MG CAPSULE 0.8 MG PO (20:56)
[2022-07-21] MEDS: ALBUTEROL SULFATE NEB 2.5 MG/3 ML INH INHALATION (21:00)
[2022-07-21] MEDS: IPRATROPIUM BR 0.02% INH SOLN 0.5 MG/2.5 ML VIAL INHALATION (21:00)
[2022-07-21] MEDS: INSULIN ASPART (*BKC) 100 UNITS/ML 6 UNITS SUB-Q (21:16)
[2022-07-22] VITALS (25 sets, daily range): BP systolic 134–165; BP diastolic 71–81; PULSE 64–95; RESP 15–20; TEMP 36.1–36.8; O2SAT 91–98
[2022-07-22] MEDS: IPRATROPIUM BR 0.02% INH SOLN 0.5 MG/2.5 ML VIAL INHALATION ×5 (02:55→20:53)
[2022-07-22] MEDS: ALBUTEROL SULFATE NEB 2.5 MG/3 ML INH INHALATION ×5 (02:55→20:53)
[2022-07-22 04:48] LABS: Hemoglobin 13.2 g/dL (14.0-18.0); Mean Corpuscular HGB Conc 30.7 g/dl (32-36); Mean Corpuscular Hemoglobin 28.1 pg (26-34); Mean Corpuscular Volume 91.7 fl (80-100); Mean Platelet Volume 11.1 fl (7.4-10.4); Platelet Count Result 229 k/mm3 (150-375); Red Blood Count 4.69 M/mm3 (4.6-6.20); Red Cell Distribution Width 14.7 % (11.5-14.5); White Blood Count 10.5 K/mm3 (4.5-10.0)
[2022-07-22 05:01] LABS: Albumin Level 4.2 g/dL (3.5-5.1); Anion Gap 13 mmol/L (8-16); Blood Urea Nitrogen 40 mg/dL (9-20); Calcium 8.7 mg/dL (8.4-10.2); Carbon Dioxide 25 mmol/L (22-30); Chloride 101 mmol/L (98-107); Estimated CRCL calculation 61 ml/min; Estimated Glomerular Filt Rate 56; Glucose 265 mg/dL (65-110); Phosphorus 3.4 mg/dL (2.5-4.5); Sodium 139 mmol/L (137-145)
[2022-07-22] MEDS: ENOXAPARIN 120 MG/0.8 ML SYRINGE 110 MG SUB-Q (06:13)
[2022-07-22] MEDS: LINACLOTIDE 145 MCG CAPSULE PO (06:14)
[2022-07-22] MEDS: traMADol HCL (*CRX) 50 MG TABLET PO ×3 (06:16→18:19)
[2022-07-22] MEDS: diphenhydrAMINE HCl CAP 25 MG CAPSULE 50 MG PO ×3 (06:18→18:20)
[2022-07-22 08:20] LABS: Glucose Point of Care 297 mg/dl (65-105)
--- NOTE | 2022-07-22 09:45 | PM.PNPUL ---
Progress Note: A&P Assessment and Plan (1) Acute exacerbation of chronic obstructive pulmonary disease: Code(s): J44.1 - Chronic obstructive pulmonary disease with (acute) exacerbation Status: Acute Assessment and Plan: Patient carries diagnosis of COPD since 2019 on trilogy inhaler. I have no PFTs and no prior CT scans of the chest. He has the tobacco history of 61 pack years quit on 06/01/2022. He ran out of his medicines and presented with shortness of breath, 3 days worsening cough and change in phlegm volume and color. His chest x-ray shows no focal infiltrates his COVID RT PCR test is negative. There is no evidence of fluid overload on exam. 07/21 I will treat for COPD exacerbation. I will discontinue his trelegy inhaler and place him on nebulized albuterol and ipratropium Q 6 hours. I would initiate azithromycin IV for tracheobronchitis at this time. Currently patient has no active wheezing following Solu-Medrol 125 given on 07/20. I will continue prednisone 40 mg p.o. q.day. Currently he is on room air with saturations 93%. D-dimer was positive at 1.93 and started on Lovenox 110 mg IV b.i.d.. 07/22 The patient slept the hospital auto Pap last night and did well. Overall he states he feels about the same. He has no fever, more coughing today, minimal phlegm and continued shortness of breath. His room air saturations are 94%. His white blood cell count is 10.5, is creatinine is 1.30. Continue prednisone 40 mg p.o. q.day (day 3 steroids), azithromycin day 2, and will could increase his albuterol and ipratropium nebulizers to q.4 hours. I ordered upper and lower extremity Dopplers and if negative will perform CT angiogram of the chest. Will follow with you (2) SINDHU (obstructive sleep apnea): Code(s): G47.33 - Obstructive sleep apnea (adult) (pediatric) Status: Acute Assessment and Plan: 07/21 obstructive sleep apnea diagnosed at [facility] on 06/09/2022 with an overnight CPAP titration on 06/11 and awaiting home CPAP setup. The patient has been started on hospital auto Pap 5-15 and he said that the settings felt good last night and he slept well. I will continue these for now. 07/22 Patient did well on hospital auto Pap last night and will continue. Subjective Date/time seen: 07/22/22 09:45 Interval history: 07/21/2022:? This is a new pulmonary consult for shortness of breath and COPD exacerbation. ? 62-year-old man with a history of psoriasis started on Humira in 2014 but off recently and saw Dermatology 4 weeks ago and was given a cream and told them that he would need to restart a biologic agent, coronary artery disease status post CABG in 2016 with stents placed afterwards, kidney cancer, back surgery in 1999, obstructive sleep apnea diagnosed at [facility] on 06/09/2022 with an overnight? CPAP titration on 06/11 and awaiting home CPAP setup, COPD diagnosed in 2019. ?patient smoked 1 and half packs per day from 1980 until 06/01/2022 for total of 61 pack years.? Patient smoked 10 cigarettes of marijuana from [id number].? Patient snorted and free based cocaine from [id number]. ? Patient has no secondhand smoke exposure. 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 Patient is currently on disability.? 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 ? On 07/15/2022 the patient ran out of his albuterol and trilogy inhaler.? He developed shortness of breath.? The next day he developed food poisoning was vomiting for 3 days.? On 07/18 the patient developed cough with a new development of yellow and green phlegm production.? His shortness of breath continued.? Patient denied fever, chills, rigors. Patient presented to the emergency department? on 07/20/2022 with falls, bilateral leg numbness and weakness.? He also described chest pain and constipation for
[2022-07-22] MEDS: polyethylene glycoL 3350 17 GM POWD.PACK PO (09:47)
[2022-07-22] MEDS: ASPIRIN 81 MG ENTERIC TABLET PO (09:48)
[2022-07-22] MEDS: ATORVASTATIN 40 MG TABLET 80 MG PO (09:48)
[2022-07-22] MEDS: predniSONE 20 MG TABLET 40 MG PO (09:49)
[2022-07-22] MEDS: GABAPENTIN 300 MG CAPSULE PO ×3 (09:49→16:37)
[2022-07-22] MEDS: CLOPIDOGREL BISULFATE 75 MG TABLET PO (09:49)
[2022-07-22] MEDS: carvediloL 3.125 MG TABLET PO ×2 (09:49→16:38)
[2022-07-22] MEDS: amLODIPine BESYLATE 5 MG TABLET 10 MG PO (09:49)
[2022-07-22] MEDS: INSULIN ASPART (*BKC) 100 UNITS/ML 25 UNITS SUB-Q ×3 (09:59→18:13)
[2022-07-22] MEDS: INSULIN ASPART (*BKC) 100 UNITS/ML SUB-Q ×3 (09:59→18:12)
--- NOTE | 2022-07-22 10:55 | PCPTNOTE ---
Attempted PT evaluation, pt off floor for testing. Will Follow
[2022-07-22 12:02] LABS: Glucose Point of Care 280 mg/dl (65-105)
[2022-07-22] MEDS: CLOBETASOL PROPIONATE 0.05% CREAM 15 GM 1 APPLIC TOPICAL ×2 (13:22→16:37)
--- NOTE | 2022-07-22 13:57 | PM.PNCARD ---
Progress Note: A&P Assessment and Plan (1) SINDHU (obstructive sleep apnea): Code(s): G47.33 - Obstructive sleep apnea (adult) (pediatric) Status: Acute (2) Elevated troponin: Code(s): R77.8 - Other specified abnormalities of plasma proteins Status: Acute (3) Renal cell carcinoma: Code(s): C64.9 - Malignant neoplasm of unspecified kidney, except renal pelvis Status: Chronic (4) Acute exacerbation of chronic obstructive pulmonary disease: Code(s): J44.1 - Chronic obstructive pulmonary disease with (acute) exacerbation Status: Acute (5) Diabetic neuropathy: Code(s): E11.40 - Type 2 diabetes mellitus with diabetic neuropathy, unspecified Status: Acute (6) ELOISA (acute kidney injury): Code(s): N17.9 - Acute kidney failure, unspecified Status: Resolved (7) Dyslipidemia: Code(s): E78.5 - Hyperlipidemia, unspecified Status: Chronic (8) Peripheral arterial disease: Code(s): I73.9 - Peripheral vascular disease, unspecified Status: Chronic (9) Coronary artery disease: Code(s): I25.10 - Atherosclerotic heart disease of [place] coronary artery without angina pectoris Status: Chronic (10) Diabetes type 2, uncontrolled: Status: Acute (11) HTN (hypertension) with goal to be determined: Code(s): I10 - Essential (primary) hypertension Status: Chronic (12) COPD (chronic obstructive pulmonary disease): Code(s): J44.9 - Chronic obstructive pulmonary disease, unspecified Status: Resolved Plan CTA done today which showed no pulmonary embolism. Venous duplex showed no upper or lower extremity DVT. Once his acute COPD exacerbation is resolved, recommend nuclear stress testing. Subjective Date/time seen: 07/22/22 13:57 Interval history: Patient continues to report shortness of breath, only has chest tightness when he takes deep breaths. Currently being treated for COPD exacerbation Review of Systems Review of Systems: All systems reviewed & are unremarkable except as noted in HPI and below (HPI) Exam Const: General: comfortable and no acute distress Neck: Neck: no JVD Resp: Effort & Inspection: normal respiratory effort Auscultation: diminished lung sounds Cardio: Rate: regular rate Rhythm: regular rhythm Heart sounds: no murmurs Skin: General skin exam: normal color Neuro: Speech: normal speech Extrem: General: edema Psych: Mental Status: mental status grossly normal Objective Data Vital Signs Vital Signs: Vital Signs - 24 hr 07/21/22 16:00 07/21/22 16:00 07/21/22 16:00 Temperature 36.6 C Pulse Rate 87 90 Respiratory Rate 14 Blood Pressure 130/61 Pulse Oximetry 92 Oxygen Delivery Room Air Oxygen Flow Rate Fraction of Inspired Oxygen 07/21/22 18:00 07/21/22 18:48 07/21/22 20:00 Temperature 36.6 C Pulse Rate 85 84 78 Respiratory Rate 20 Blood Pressure 93/41 L Pulse Oximetry 96 Oxygen Delivery Oxygen Flow Rate Fraction of Inspired Oxygen 07/21/22 21:02 07/21/22 21:07 07/21/22 20:00 Temperature Pulse Rate 83 76 Respiratory Rate 18 Blood Pressure Pulse Oximetry 91 Oxygen Delivery Room Air Oxygen Flow Rate Fraction of Inspired Oxygen 07/21/22 20:00 07/21/22 23:16 07/22/22 02:58 Temperature 36.7 C Pulse Rate 73 64 Respiratory Rate 20 15 Blood Pressure 129/46 L Pulse Oximetry 91 96 Oxygen Delivery Nasal Cannula Oxygen Flow Rate 2 Fraction of Inspired Oxygen 07/21/22 21:17 07/22/22 00:00 07/21/22 22:00 Temperature Pulse Rate 85 72 Respiratory Rate 18 Blood Pressure Pulse Oximetry 96 Oxygen Delivery CPAP Oxygen Flow Rate Fraction of Inspired Oxygen 07/22/22 00:00 07/22/22 02:00 07/22/22 04:00 Temperature 36.4 C Pulse Rate 80 67 68 Respiratory Rate 20 Blood Pressure 134/71 Pulse Oximetry 98 Oxygen Delivery Oxygen Flow Rate Fr
--- NOTE | 2022-07-22 15:15 | PM.IMPN ---
Progress Note: A&P Assessment and Plan (1) Elevated troponin: Code(s): R77.8 - Other specified abnormalities of plasma proteins Status: Acute Assessment and Plan: 07/21/2022 interval history: Patient is a 62-year-old male with history of CABG and significant peripheral vascular disease presented with chest pain and shortness Pt being treated for COPD exacerbation. Pt seen by Dr Frankel pulmology and Dr Maddox cardiology. (2) Coronary artery disease: Code(s): I25.10 - Atherosclerotic heart disease of [place] coronary artery without angina pectoris Status: Chronic Assessment and Plan: Patient with history CABG, seen by cardiology does not suspect acute coronary syndrome (3) ELOISA (acute kidney injury): Code(s): N17.9 - Acute kidney failure, unspecified Status: Resolved Assessment and Plan: can dc fluids (4) Acute exacerbation of chronic obstructive pulmonary disease: Code(s): J44.1 - Chronic obstructive pulmonary disease with (acute) exacerbation Status: Acute Assessment and Plan: Continue on steroid and bronchodilator as well as inhaled steroid (5) Diabetic neuropathy: Code(s): E11.40 - Type 2 diabetes mellitus with diabetic neuropathy, unspecified Status: Acute Assessment and Plan: Accuhecks, SSI (6) Peripheral arterial disease: Code(s): I73.9 - Peripheral vascular disease, unspecified Status: Chronic Assessment and Plan: Patient is seen by vascular surgeon in the past and will need to follow up as patient has significant claudication (7) Diabetes type 2, uncontrolled: Status: Acute Assessment and Plan: Will continue home regimen and monitor with sliding (8) HTN (hypertension) with goal to be determined: Code(s): I10 - Essential (primary) hypertension Status: Chronic Assessment and Plan: Will continue home regimen (9) Constipation: Code(s): K59.00 - Constipation, unspecified Status: Acute Assessment and Plan: Pt to have enema continue lactulose and laxatives Subjective Date/time seen: 07/22/22 15:15 62-year-old male with history of CABG and significant peripheral vascular disease presented with chest pain and shortness upon arrival patient rubs or elevated patient seen by Cardiology and does not suspect acute coronary syndrome as patient has a pleuritic chest with elevated? serum creatinine,? patient with history of smoking seen by pulmonology suspect patient has exacerbation of COPD started the patient on steroid bronchodilator is also concern the patient may have a PE D-dimer is elevated will start the on therapeutic Lovenox. Pt not found to have a PE or DVT continue to treat for COPD exacerbation, and pt is severe constipated not opened his bowels for over 10 days. Pt feels nauseated today. Pt denies any chest pain or SOB. Review of Systems Review of Systems: Pt feels nauseated today. Pt denies any chest pain or SOB. Constitutional: Constitutional: Reports no additional constitutional complaints Exam Narrative: Morbidly obese LUNGS: Bilateral fair air entry with harsh breath sounds HEART: RR S1S2 ABDO: distended Lower extremities: no edema SKIN: nonjaundiced Neuro: grossly intact. Objective Data Vital Signs Vital Signs: Vital Signs - 24 hr 07/21/22 16:00 07/21/22 16:00 07/21/22 16:00 Temperature 36.6 C Pulse Rate 87 90 Respiratory Rate 14 Blood Pressure 130/61 Pulse Oximetry 92 Oxygen Delivery Room Air Oxygen Flow Rate Fraction of Inspired Oxygen 07/21/22 18:00 07/21/22 18:48 07/21/22 20:00 Temperature 36.6 C Pulse Rate 85 84 78 Respiratory Rate 20 Blood Pressure 93/41 L Pulse Oximetry 96 Oxygen Delivery Oxygen Flow Rate Fraction of Inspired Oxygen 07/21/22 21:02 07/21/22 21:07 07/21/22 20:00 Temperature Pulse Rate 83 76 Respiratory Rate 18 Blood Pressure
[2022-07-22] MEDS: BISACODYL 10 MG SUPPOSITORY RECTAL (16:37)
[2022-07-22 16:54] LABS: Glucose Point of Care 316 mg/dl (65-105)
[2022-07-22 20:53] LABS: Glucose Point of Care 357 mg/dl (65-105)
[2022-07-22] MEDS: TAMSULOSIN HCL 0.4 MG CAPSULE 0.8 MG PO (20:59)
[2022-07-22] MEDS: SENNA/DOCUSATE SODIUM TABLET 1 TAB PO (21:00)
[2022-07-22] MEDS: INSULIN GLARGINE (*BKC) 100 UNITS/ML 60 UNITS SUB-Q (21:00)
[2022-07-23] VITALS (26 sets, daily range): BP systolic 115–165; BP diastolic 62–80; PULSE 63–96; RESP 14–20; TEMP 36.4–36.9; O2SAT 95–100
[2022-07-23] MEDS: WATER FOR IRRIGATION, STERILE 1,000 ML BOTTLE 1000 ML (02:12)
[2022-07-23] MEDS: IPRATROPIUM BR 0.02% INH SOLN 0.5 MG/2.5 ML VIAL INHALATION ×5 (02:12→20:45)
[2022-07-23] MEDS: ALBUTEROL SULFATE NEB 2.5 MG/3 ML INH INHALATION ×5 (02:12→20:45)
[2022-07-23 04:49] LABS: Hematocrit 42.6 % (42.0-52.0); Hemoglobin 13.1 g/dL (14.0-18.0); Mean Corpuscular HGB Conc 30.8 g/dl (32-36); Mean Corpuscular Hemoglobin 28.2 pg (26-34); Mean Corpuscular Volume 91.6 fl (80-100); Mean Platelet Volume 10.7 fl (7.4-10.4); Platelet Count Result 222 k/mm3 (150-375); Red Blood Count 4.65 M/mm3 (4.6-6.20); Red Cell Distribution Width 14.8 % (11.5-14.5); White Blood Count 10.3 K/mm3 (4.5-10.0)
[2022-07-23 05:05] LABS: Albumin Level 4.2 g/dL (3.5-5.1); Anion Gap 13 mmol/L (8-16); Blood Urea Nitrogen 36 mg/dL (9-20); Calcium 8.8 mg/dL (8.4-10.2); Carbon Dioxide 25 mmol/L (22-30); Chloride 102 mmol/L (98-107); Estimated CRCL calculation 61 ml/min; Estimated Glomerular Filt Rate 56; Glucose 223 mg/dL (65-110); Phosphorus 3.5 mg/dL (2.5-4.5); Potassium 4.8 mmol/L (3.4-5.0); Sodium 140 mmol/L (137-145)
[2022-07-23] MEDS: LINACLOTIDE 145 MCG CAPSULE PO (06:10)
[2022-07-23] MEDS: diphenhydrAMINE HCl CAP 25 MG CAPSULE 50 MG PO ×3 (06:16→17:41)
[2022-07-23] MEDS: traMADol HCL (*CRX) 50 MG TABLET PO ×3 (06:17→17:41)
[2022-07-23 08:02] LABS: Glucose Point of Care 237 mg/dl (65-105)
--- NOTE | 2022-07-23 09:12 | PM.PNPUL ---
Progress Note: A&P Assessment and Plan (1) Acute exacerbation of chronic obstructive pulmonary disease: Code(s): J44.1 - Chronic obstructive pulmonary disease with (acute) exacerbation Status: Acute Assessment and Plan: Patient carries diagnosis of COPD since 2019 on trilogy inhaler. I have no PFTs and no prior CT scans of the chest. He has the tobacco history of 61 pack years quit on 06/01/2022. He ran out of his medicines and presented with shortness of breath, 3 days worsening cough and change in phlegm volume and color. His chest x-ray shows no focal infiltrates his COVID RT PCR test is negative. There is no evidence of fluid overload on exam. 07/21 I will treat for COPD exacerbation. I will discontinue his trelegy inhaler and place him on nebulized albuterol and ipratropium Q 6 hours. I would initiate azithromycin IV for tracheobronchitis at this time. Currently patient has no active wheezing following Solu-Medrol 125 given on 07/20. I will continue prednisone 40 mg p.o. q.day. Currently he is on room air with saturations 93%. D-dimer was positive at 1.93 and started on Lovenox 110 mg IV b.i.d.. 07/22 The patient slept the hospital auto Pap last night and did well. Overall he states he feels about the same. He has no fever, more coughing today, minimal phlegm and continued shortness of breath. His room air saturations are 94%. His white blood cell count is 10.5, is creatinine is 1.30. Continue prednisone 40 mg p.o. q.day (day 3 steroids), azithromycin day 2, and will could increase his albuterol and ipratropium nebulizers to q.4 hours. Upper and lower extremity Dopplers negative for DVT. CT angiogram negative for pulmonary embolism no pulmonary infiltrates or consolidations. Lovenox changed to DVT prophylaxis. 07/23 Patient slept well with hospital auto Pap last night. Overall he is minimally improved since admission. Cough persists and he is able to expectorate 5 yellow to green phlegm today. Room air saturations are 98%. White blood cell count 10.3, creatinine 1.30. No wheezes on exam. Continue prednisone 40 mg p.o. q.day (day 4 steroids), azithromycin day 3, and albuterol and ipratropium nebulizers to q.4 hours. Will follow with you (2) SINDHU (obstructive sleep apnea): Code(s): G47.33 - Obstructive sleep apnea (adult) (pediatric) Status: Acute Assessment and Plan: 07/21 obstructive sleep apnea diagnosed at [facility] on 06/09/2022 with an overnight CPAP titration on 06/11 and awaiting home CPAP setup. The patient has been started on hospital auto Pap 5-15 and he said that the settings felt good last night and he slept well. I will continue these for now. 07/22 Patient did well on hospital auto Pap last night and will continue. 07/23 Continue hospital autoPAP. Subjective Date/time seen: 07/23/22 09:12 Interval history: 07/21/2022:? This is a new pulmonary consult for shortness of breath and COPD exacerbation. ? 62-year-old man with a history of psoriasis started on Humira in 2014 but off recently and saw Dermatology 4 weeks ago and was given a cream and told them that he would need to restart a biologic agent, coronary artery disease status post CABG in 2016 with stents placed afterwards, kidney cancer, back surgery in 1999, obstructive sleep apnea diagnosed at [facility] on 06/09/2022 with an overnight? CPAP titration on 06/11 and awaiting home CPAP setup, COPD diagnosed in 2019. ?patient smoked 1 and half packs per day from 1980 until 06/01/2022 for total of 61 pack years.? Patient smoked 10 cigarettes of marijuana from [id number].? Patient snorted and free based cocaine from [id number]. ? Patient has no secondhand smoke exposure. 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 Patient is currently on disability.? Patient believes he was exposed to asbestos while he was incarcerated for 8 years up until to 2021 from the
[2022-07-23] MEDS: INSULIN ASPART (*BKC) 100 UNITS/ML SUB-Q ×2 (10:23→13:09)
[2022-07-23] MEDS: INSULIN ASPART (*BKC) 100 UNITS/ML 25 UNITS SUB-Q (10:23)
[2022-07-23] MEDS: carvediloL 3.125 MG TABLET PO ×2 (10:25→17:34)
[2022-07-23] MEDS: CLOPIDOGREL BISULFATE 75 MG TABLET PO (10:25)
[2022-07-23] MEDS: ATORVASTATIN 40 MG TABLET 80 MG PO (10:25)
[2022-07-23] MEDS: ASPIRIN 81 MG ENTERIC TABLET PO (10:26)
[2022-07-23] MEDS: LACTULOSE 20 GM/30 ML UDC PO (10:26)
[2022-07-23] MEDS: ENOXAPARIN 40 MG/0.4 ML SYRINGE SUB-Q (10:26)
[2022-07-23] MEDS: GABAPENTIN 300 MG CAPSULE PO ×3 (10:26→17:34)
[2022-07-23] MEDS: predniSONE 20 MG TABLET 40 MG PO (10:26)
[2022-07-23] MEDS: amLODIPine BESYLATE 5 MG TABLET 10 MG PO (10:26)
[2022-07-23] MEDS: polyethylene glycoL 3350 17 GM POWD.PACK PO (10:27)
[2022-07-23] MEDS: CLOBETASOL PROPIONATE 0.05% CREAM 15 GM 1 APPLIC TOPICAL ×2 (10:42→17:35)
[2022-07-23 11:22] LABS: Glucose Point of Care 246 mg/dl (65-105)
[2022-07-23 13:06] LABS: Glucose Point of Care 256 mg/dl (65-105)
[2022-07-23] MEDS: INSULIN ASPART (*BKC) 100 UNITS/ML 40 UNITS SUB-Q ×2 (13:09→17:39)
--- NOTE | 2022-07-23 15:12 | PC.NURSE ---
This patient, Flavio Vigil, was received from [[id number] ] on 07/23/22 at 1512. Patient/family oriented to unit policies and routines. Patient in bed with no complaints at this time.
--- NOTE | 2022-07-23 15:37 | PM.PNCARD ---
Progress Note: A&P Assessment and Plan (1) SINDHU (obstructive sleep apnea): Code(s): G47.33 - Obstructive sleep apnea (adult) (pediatric) Status: Acute (2) Constipation: Code(s): K59.00 - Constipation, unspecified Status: Acute (3) Elevated troponin: Code(s): R77.8 - Other specified abnormalities of plasma proteins Status: Acute (4) Renal cell carcinoma: Code(s): C64.9 - Malignant neoplasm of unspecified kidney, except renal pelvis Status: Chronic (5) Acute exacerbation of chronic obstructive pulmonary disease: Code(s): J44.1 - Chronic obstructive pulmonary disease with (acute) exacerbation Status: Acute (6) Shortness of breath: Code(s): R06.02 - Shortness of breath Status: Resolved (7) ELOISA (acute kidney injury): Code(s): N17.9 - Acute kidney failure, unspecified Status: Resolved (8) Dyslipidemia: Code(s): E78.5 - Hyperlipidemia, unspecified Status: Chronic (9) Peripheral arterial disease: Code(s): I73.9 - Peripheral vascular disease, unspecified Status: Chronic (10) Coronary artery disease: Code(s): I25.10 - Atherosclerotic heart disease of [place] coronary artery without angina pectoris Status: Chronic (11) Diabetes type 2, uncontrolled: Status: Acute (12) HTN (hypertension) with goal to be determined: Code(s): I10 - Essential (primary) hypertension Status: Chronic (13) COPD (chronic obstructive pulmonary disease): Code(s): J44.9 - Chronic obstructive pulmonary disease, unspecified Status: Resolved Plan Obtain nuclear stress test once acute COPD exacerbation is resolved. Subjective Date/time seen: 07/23/22 15:37 Interval history: Patient states he feels about the same. Reports coughing up yellow phelgm. States he has not had a bowel movement since last Wednesday last week. Review of Systems Review of Systems: All systems reviewed & are unremarkable except as noted in HPI and below (subjective) Exam Const: General: comfortable and no acute distress Resp: Effort & Inspection: normal respiratory effort Auscultation: diminished lung sounds Cardio: Rate: regular rate Rhythm: regular rhythm Heart sounds: no murmurs Neuro: Speech: normal speech Psych: Mental Status: mental status grossly normal Objective Data Vital Signs Vital Signs: Vital Signs - 24 hr 07/22/22 16:38 07/22/22 16:00 07/22/22 16:00 Temperature 36.8 C Pulse Rate 81 93 Respiratory Rate 20 Blood Pressure 138/81 Pulse Oximetry 91 Oxygen Delivery Room Air Fraction of Inspired Oxygen 07/22/22 16:02 07/22/22 16:15 07/22/22 16:00 Temperature Pulse Rate 76 76 83 Respiratory Rate 16 16 Blood Pressure Pulse Oximetry Oxygen Delivery Fraction of Inspired Oxygen 07/22/22 18:00 07/22/22 20:00 07/22/22 20:40 Temperature 36.6 C Pulse Rate 83 82 83 Respiratory Rate 20 20 Blood Pressure 138/73 Pulse Oximetry 92 Oxygen Delivery Fraction of Inspired Oxygen 07/22/22 20:50 07/22/22 20:00 07/22/22 20:00 Temperature Pulse Rate 85 85 78 Respiratory Rate 20 20 Blood Pressure Pulse Oximetry 92 Oxygen Delivery Room Air Fraction of Inspired Oxygen 07/22/22 22:00 07/22/22 23:12 07/23/22 00:00 Temperature 36.6 C Pulse Rate 76 81 68 Respiratory Rate 18 20 Blood Pressure 123/68 Pulse Oximetry 96 Oxygen Delivery Autopap Fraction of Inspired Oxygen 07/23/22 00:00 07/23/22 00:00 07/23/22 02:00 Temperature Pulse Rate 68 69 68 Respiratory Rate 20 Blood Pressure Pulse Oximetry 96 Oxygen Delivery Autopap Fraction of Inspired Oxygen 07/23/22 02:15 07/23/22 02:15 07/23/22 02:15 Temperature Pulse Rate 69 69 69 Respiratory Rate 18 18 18 Blood Pressure Pulse Oximetry 96 96 Oxygen Delivery Autopap Autopap Fraction of Inspired Oxygen 07/23/22 02:17 07/23/22
--- NOTE | 2022-07-23 16:06 | PM.IMPN ---
Progress Note: A&P Assessment and Plan (1) Elevated troponin: Code(s): R77.8 - Other specified abnormalities of plasma proteins Status: Acute Assessment and Plan: Trajectory is flat. Not suggestive of acute coronary syndrome History of CABG and stent in the past Cardiology following. Chest pain and shortness of breath suspected to be related to COPD exacerbation (2) Coronary artery disease: Code(s): I25.10 - Atherosclerotic heart disease of [place] coronary artery without angina pectoris Status: Chronic Assessment and Plan: Patient with history CABG, seen by cardiology does not suspect acute coronary syndrome (3) ELOISA (acute kidney injury): Code(s): N17.9 - Acute kidney failure, unspecified Status: Resolved Assessment and Plan: can dc fluids (4) Acute exacerbation of chronic obstructive pulmonary disease: Code(s): J44.1 - Chronic obstructive pulmonary disease with (acute) exacerbation Status: Acute Assessment and Plan: Continue on steroid and bronchodilator as well as inhaled steroid pulmonary following (5) Diabetic neuropathy: Code(s): E11.40 - Type 2 diabetes mellitus with diabetic neuropathy, unspecified Status: Acute Assessment and Plan: Bhavna, [place] (6) Peripheral arterial disease: Code(s): I73.9 - Peripheral vascular disease, unspecified Status: Chronic Assessment and Plan: Patient is seen by vascular surgeon in the past and will need to follow up as patient has significant claudication Duplex Scan Lower Extremity Artery 07/21/22 07:54 IMPRESSION: 1. Patent stents in the superficial femoral arteries. 2. Increased velocity gradients in left profunda femoral artery and left anterior tibial artery, consistent with moderate to severe stenosis. (7) Diabetes type 2, uncontrolled: Status: Acute Assessment and Plan: continue home regimen and monitor with sliding (8) HTN (hypertension) with goal to be determined: Code(s): I10 - Essential (primary) hypertension Status: Chronic Assessment and Plan: home regimen (9) Constipation: Code(s): K59.00 - Constipation, unspecified Status: Acute Assessment and Plan: .continue lactulose and laxatives Status post enema On Linzess senna S MiraLax lactulose Plan SINDHU on CPAP History of psoriasis used to be on Humira in the past DVT prophylaxis : Lovenox Code status full code Subjective Date/time seen: 07/23/22 16:06 Interval history: feeling a bit better today. He coughed up of thick yellow phlegm this morning. Hurts when he takes deep breath still but better. Denies any nausea vomiting abdominal pain. He feels constipated. Review of Systems Review of Systems: All systems reviewed & are unremarkable except as noted in HPI and below Exam Narrative: Morbidly obese not in acute distress LUNGS: Bilateral fair air entry with harsh breath sounds HEART: regular rate and rhythm S1; S2 ABDO: distended soft nontender Lower extremities: no edema no cyanosis or clubbing SKIN: nonjaundiced Neuro: grossly intact Objective Data Vital Signs Vital Signs: Vital Signs - 24 hr 07/22/22 16:38 07/22/22 16:15 07/22/22 18:00 Temperature Pulse Rate 81 76 83 Respiratory Rate 16 Blood Pressure Pulse Oximetry Oxygen Delivery Fraction of Inspired Oxygen 07/22/22 20:00 07/22/22 20:40 07/22/22 20:50 Temperature 97.9 F Pulse Rate 82 83 85 Respiratory Rate 20 20 20 Blood Pressure 138/73 Pulse Oximetry 92 Oxygen Delivery Fraction of Inspired Oxygen 07/22/22 20:00 07/22/22 20:00 07/22/22 22:00 Temperature Pulse Rate 85 78 76 Respiratory Rate 20 Blood Pressure Pulse Oximetry 92 Oxygen Delivery Room Air Fraction of Inspired Oxygen 21 07/22/22 23:12 07/23/22 00:00 07/23/22 00:00 Temperature 97.9 F Pulse Rate 81 68 68 Respiratory Rate
[2022-07-23 17:31] LABS: Glucose Point of Care 146 mg/dl (65-105)
[2022-07-23 20:26] LABS: Glucose Point of Care 465 mg/dl (65-105)
[2022-07-23] MEDS: TAMSULOSIN HCL 0.4 MG CAPSULE 0.8 MG PO (20:28)
[2022-07-23] MEDS: INSULIN GLARGINE (*BKC) 100 UNITS/ML 60 UNITS SUB-Q (20:28)
[2022-07-23] MEDS: SENNA/DOCUSATE SODIUM TABLET 1 TAB PO (20:28)
[2022-07-24] VITALS (24 sets, daily range): BP systolic 113–159; BP diastolic 70–90; PULSE 74–101; RESP 13–20; TEMP 36.4–36.8; O2SAT 93–98
[2022-07-24] MEDS: ALBUTEROL SULFATE NEB 2.5 MG/3 ML INH INHALATION ×6 (00:20→20:33)
[2022-07-24] MEDS: IPRATROPIUM BR 0.02% INH SOLN 0.5 MG/2.5 ML VIAL INHALATION ×6 (00:20→20:33)
[2022-07-24] MEDS: LINACLOTIDE 145 MCG CAPSULE PO (05:31)
[2022-07-24] MEDS: traMADol HCL (*CRX) 50 MG TABLET PO ×3 (05:33→18:48)
[2022-07-24] MEDS: diphenhydrAMINE HCl CAP 25 MG CAPSULE 50 MG PO ×3 (05:34→18:47)
[2022-07-24 06:07] LABS: Basophils Percent Auto 0.1 % (0.2-1.2); Eosinophils Percent Auto 0.2 % (0-4.4); Hematocrit 46.1 % (42.0-52.0); Hemoglobin 14.3 g/dL (14.0-18.0); Immature Granulocyte Absolute 0.06 K/mm3 (0.00-0.031); Immature Granulocyte Percent A 0.6 % (0-0.5); Lymphocytes Absolute Auto 1.51 K/mm3 (0.9-3.2); Lymphocytes Percent Auto 16.1 % (18.3-44.2); Mean Corpuscular Hemoglobin 28.2 pg (26-34); Mean Corpuscular Volume 90.9 fl (80-100); Mean Platelet Volume 10.8 fl (7.4-10.4); Monocytes Absolute Auto 0.7 K/mm3 (0.1-0.6); Monocytes Percent Auto 7.1 % (2.6-8.5); Neutrophils Absolute Auto 7.1 K/mm3 (1.3-6.7); Neutrophils Percent Auto 75.9 % (45.5-73.1); Platelet Count Result 232 k/mm3 (150-375); Red Blood Count 5.07 M/mm3 (4.6-6.20); Red Cell Distribution Width 14.6 % (11.5-14.5); White Blood Count 9.4 K/mm3 (4.5-10.0)
[2022-07-24 06:36] LABS: Alanine Aminotransferase 36 U/L (6-50); Albumin Level 4.2 g/dL (3.5-5.1); Alkaline Phosphatase 68 U/L (38-126); Anion Gap 8 mmol/L (8-16); Aspartate Amino Transferase 31 U/L (17-59); Bilirubin,Total 0.5 mg/dL (0.2-1.3); Blood Urea Nitrogen 33 mg/dL (9-20); Calcium 9.2 mg/dL (8.4-10.2); Carbon Dioxide 28 mmol/L (22-30); Chloride 103 mmol/L (98-107); Estimated CRCL calculation 71 ml/min; Estimated Glomerular Filt Rate > 60; Glucose 132 mg/dL (65-110); Phosphorus 4.1 mg/dL (2.5-4.5); Potassium 5.4 mmol/L (3.4-5.0); Sodium 139 mmol/L (137-145)
[2022-07-24 08:12] LABS: Glucose Point of Care 121 mg/dl (65-105)
[2022-07-24] MEDS: polyethylene glycoL 3350 17 GM POWD.PACK PO (08:44)
[2022-07-24] MEDS: LACTULOSE 20 GM/30 ML UDC PO (08:44)
[2022-07-24] MEDS: ASPIRIN 81 MG ENTERIC TABLET PO (08:44)
[2022-07-24] MEDS: ENOXAPARIN 40 MG/0.4 ML SYRINGE SUB-Q (08:44)
[2022-07-24] MEDS: CLOPIDOGREL BISULFATE 75 MG TABLET PO (08:44)
[2022-07-24] MEDS: GABAPENTIN 300 MG CAPSULE PO ×3 (08:44→17:27)
[2022-07-24] MEDS: ATORVASTATIN 40 MG TABLET 80 MG PO (08:44)
[2022-07-24] MEDS: predniSONE 20 MG TABLET 40 MG PO (08:44)
[2022-07-24] MEDS: carvediloL 3.125 MG TABLET PO ×2 (08:45→17:26)
[2022-07-24] MEDS: amLODIPine BESYLATE 5 MG TABLET 10 MG PO (08:45)
[2022-07-24] MEDS: INSULIN ASPART (*BKC) 100 UNITS/ML 40 UNITS SUB-Q ×3 (08:46→17:28)
[2022-07-24] MEDS: CLOBETASOL PROPIONATE 0.05% CREAM 15 GM 1 APPLIC TOPICAL ×2 (08:54→17:27)
[2022-07-24 09:03] LABS: Glucose Point of Care 122 mg/dl (65-105)
--- NOTE | 2022-07-24 09:48 | PM.IMPN ---
Progress Note: A&P Assessment and Plan (1) Elevated troponin: Code(s): R77.8 - Other specified abnormalities of plasma proteins Status: Acute Assessment and Plan: Trajectory is flat. Not suggestive of acute coronary syndrome History of CABG and stent in the past Cardiology following. Chest pain and shortness of breath suspected to be related to COPD exacerbation (2) Coronary artery disease: Code(s): I25.10 - Atherosclerotic heart disease of [place] coronary artery without angina pectoris Status: Chronic Assessment and Plan: Patient with history CABG, seen by cardiology does not suspect acute coronary syndrome (3) ELOISA (acute kidney injury): Code(s): N17.9 - Acute kidney failure, unspecified Status: Resolved Assessment and Plan: ivf discontinued (4) Acute exacerbation of chronic obstructive pulmonary disease: Code(s): J44.1 - Chronic obstructive pulmonary disease with (acute) exacerbation Status: Acute Assessment and Plan: Continue on steroid and bronchodilator as well as inhaled steroid pulmonary following (5) Diabetic neuropathy: Code(s): E11.40 - Type 2 diabetes mellitus with diabetic neuropathy, unspecified Status: Acute Assessment and Plan: [place] Huggins (6) Peripheral arterial disease: Code(s): I73.9 - Peripheral vascular disease, unspecified Status: Chronic Assessment and Plan: Patient is seen by vascular surgeon in the past and will need to follow up as patient has significant claudication Duplex Scan Lower Extremity Artery 07/21/22 07:54 IMPRESSION: 1. Patent stents in the superficial femoral arteries. 2. Increased velocity gradients in left profunda femoral artery and left anterior tibial artery, consistent with moderate to severe stenosis. (7) Diabetes type 2, uncontrolled: Status: Acute Assessment and Plan: continue home regimen and monitor with sliding (8) HTN (hypertension) with goal to be determined: Code(s): I10 - Essential (primary) hypertension Status: Chronic Assessment and Plan: home regimen (9) Constipation: Code(s): K59.00 - Constipation, unspecified Status: Acute Assessment and Plan: .continue lactulose and laxatives Status post enema On Linzess senna S MiraLax lactulose ct abdomen and pelvis reviewed. will add mag citrate x 1 today (10) Urinary hesitancy: Code(s): R39.11 - Hesitancy of micturition Status: Acute Assessment and Plan: recheck ua. already on flomax 0.8 mg hs Plan SINDHU on CPAP History of psoriasis used to be on Humira in the past DVT prophylaxis : Lovenox Code status full code Subjective Date/time seen: 07/24/22 09:48 Interval history: no overnigth evetns. he is doing okay overall breathing pena. he rpeorts some urinary difficulty. he is still constipated, which is not a new problem for him. Review of Systems Review of Systems: All systems reviewed & are unremarkable except as noted in HPI and below Exam Narrative: Morbidly obese not in acute distress LUNGS: Bilateral fair air entry with harsh breath sounds HEART: regular rate and rhythm S1; S2 ABDO: distended soft nontender Lower extremities: no edema no cyanosis or clubbing SKIN: nonjaundiced; no rash Neuro: grossly intact Objective Data Vital Signs Vital Signs: Vital Signs - 24 hr 07/23/22 10:25 07/23/22 11:40 07/23/22 11:44 Temperature 97.8 F Pulse Rate 81 81 82 Respiratory Rate 20 18 Blood Pressure 138/72 Pulse Oximetry 97 Oxygen Delivery Fraction of Inspired Oxygen 07/23/22 11:47 07/23/22 10:00 07/23/22 12:00 Temperature Pulse Rate 78 81 78 Respiratory Rate 20 Blood Pressure Pulse Oximetry Oxygen Delivery Fraction of Inspired Oxygen 07/23/22 15:15 07/23/22 16:00 07/23/22 16:55 Temperature 98.5 F Pulse Rate 94 83 85 Respiratory Rate 20 20 Bl
--- NOTE | 2022-07-24 10:06 | PM.PNPUL ---
Progress Note: A&P Assessment and Plan (1) Acute exacerbation of chronic obstructive pulmonary disease: Code(s): J44.1 - Chronic obstructive pulmonary disease with (acute) exacerbation Status: Acute Assessment and Plan: Patient carries diagnosis of COPD since 2019 on trilogy inhaler. I have no PFTs and no prior CT scans of the chest. He has the tobacco history of 61 pack years quit on 06/01/2022. He ran out of his medicines and presented with shortness of breath, 3 days worsening cough and change in phlegm volume and color. His chest x-ray shows no focal infiltrates his COVID RT PCR test is negative. There is no evidence of fluid overload on exam. 07/21 I will treat for COPD exacerbation. I will discontinue his trelegy inhaler and place him on nebulized albuterol and ipratropium Q 6 hours. I would initiate azithromycin IV for tracheobronchitis at this time. Currently patient has no active wheezing following Solu-Medrol 125 given on 07/20. I will continue prednisone 40 mg p.o. q.day. Currently he is on room air with saturations 93%. D-dimer was positive at 1.93 and started on Lovenox 110 mg IV b.i.d.. 07/22 The patient slept the hospital auto Pap last night and did well. Overall he states he feels about the same. He has no fever, more coughing today, minimal phlegm and continued shortness of breath. His room air saturations are 94%. His white blood cell count is 10.5, is creatinine is 1.30. Continue prednisone 40 mg p.o. q.day (day 3 steroids), azithromycin day 2, and will could increase his albuterol and ipratropium nebulizers to q.4 hours. Upper and lower extremity Dopplers negative for DVT. CT angiogram negative for pulmonary embolism no pulmonary infiltrates or consolidations. Lovenox changed to DVT prophylaxis. 07/23 Patient slept well with hospital auto Pap last night. Overall he is minimally improved since admission. Cough persists and he is able to expectorate 5 yellow to green phlegm today. Room air saturations are 98%. White blood cell count 10.3, creatinine 1.30. No wheezes on exam. Continue prednisone 40 mg p.o. q.day (day 4 steroids), azithromycin day 3, and albuterol and ipratropium nebulizers to q.4 hours. 07/24 patient slept well with a hospital auto Pap. Continues with minimal improvement. Had a wheezing episode last night. Cough persists. Room air saturations 96%. white blood cell count 9.4, creatinine 1.10. Placed the patient on Solu-Medrol 40 q.6 for minimal improvement and intermittent wheezing while on oral steroids. Azithromycin day for, continue albuterol and ipratropium nebulizers q.4 hours. Patient has a longstanding constipation problem and has been constipated in the hospital without a bowel movement. continue aggressive therapy per hospitalist team. Will follow with you (2) SINDHU (obstructive sleep apnea): Code(s): G47.33 - Obstructive sleep apnea (adult) (pediatric) Status: Acute Assessment and Plan: 07/21 obstructive sleep apnea diagnosed at [facility] on 06/09/2022 with an overnight CPAP titration on 06/11 and awaiting home CPAP setup. The patient has been started on hospital auto Pap 5-15 and he said that the settings felt good last night and he slept well. I will continue these for now. 07/22 Patient did well on hospital auto Pap last night and will continue. 07/23 Continue hospital autoPAP. 07/24 Continue hospital autoPAP. Subjective Date/time seen: 07/24/22 10:06 Interval history: 07/21/2022:? This is a new pulmonary consult for shortness of breath and COPD exacerbation. ? 62-year-old man with a history of psoriasis started on Humira in 2014 but off recently and saw Dermatology 4 weeks ago and was given a cream and told them that he would need to restart a biologic agent, coronary artery disease status post CABG in 2016 with stents placed afterwards, kidney cancer, back surgery in 1999, obstructive sleep apnea diagnosed at [facility]
[2022-07-24] MEDS: methylPREDNISolone SOD SUCC 40 MG VIAL IV PUSH ×3 (12:01→23:55)
[2022-07-24] MEDS: MAGNESIUM HYDROXIDE SUSP 30 ML UDC PO (12:01)
[2022-07-24] MEDS: INSULIN ASPART (*BKC) 100 UNITS/ML SUB-Q ×2 (12:03→17:27)
[2022-07-24 12:08] LABS: Glucose Point of Care 283 mg/dl (65-105)
[2022-07-24 12:13] LABS: Glucose Point of Care 303 mg/dl (65-105)
--- NOTE | 2022-07-24 12:13 | PCNFU ---
Nutrition Follow-Up Complete: inadequate oral intake related to nausea, vomiting and poor appetite as evidence by suspected 13lbs wt loss in 1 week Goal: glucerna 1/day and >75% meal intake. Pt has met goal. no new goal Pt current nutrition is Heart healthy diet. Nutrition recommendation: Increase fluids and fiber intake Last recorded weight is 108.1 kg. wt currently stable since 07/21/22 Bowel Motility:LBM 07/23/22 (chronic constipation) Labs Reviewed:POC capillary glucose 303 Meds Noted: miralx, linzess, lantus, novolog, lovenox Skin:WNL Additional Notes: Pt is eating much better and appetite has improved. Only concern is he's constipated/BM issues. Compliant on increasing fluids and fiber intake: fresh fruit intake and try oatmeal for breakfast follow up in 7 days monitor appetite, intake, BM, wt and labs
--- NOTE | 2022-07-24 15:00 | PCNSR ---
On 07/24/22, the student, Wilberto Oliver, provided care and completed [facility] documentation on this patient. I have reviewed the student's documentation and agree with the findings.
[2022-07-24 16:52] LABS: Glucose Point of Care 215 mg/dl (65-105)
[2022-07-24 17:15] LABS: Appearance Urine Clear (Clear); Bilirubin Urine Negative (Negative); Blood Urine Negative (Negative); Color Urine Yellow (Yellow); Glucose Urine UA 3+ mg/dL (Negative); Ketones Urine Negative (Negative); Leukocyte Esterase Ur Negative LEU/UL (NEGATIVE); Nitrate Urine Negative (Negative); Protein Urine Negative (Negative); Specific Grav Ur 1.015 (1.001-1.035); pH Urine 5.5 (5.0-9.0)
[2022-07-24 17:17] LABS: RBC Urine 0-2 /hpf (0-2); Squamous Epithelial Cell Urine Rare /hpf (Few); WBC Urine 0-3 /hpf (0-3)
[2022-07-24 17:34] LABS: Add Urine Microscopic? YES
[2022-07-24] MEDS: SENNA/DOCUSATE SODIUM TABLET 1 TAB PO (20:07)
[2022-07-24] MEDS: TAMSULOSIN HCL 0.4 MG CAPSULE 0.8 MG PO (20:07)
[2022-07-24 21:26] LABS: Glucose Point of Care 377 mg/dl (65-105)
[2022-07-24] MEDS: INSULIN GLARGINE (*BKC) 100 UNITS/ML 60 UNITS SUB-Q (21:44)
[2022-07-25] VITALS (21 sets, daily range): BP systolic 133–157; BP diastolic 65–79; PULSE 75–92; RESP 12–22; TEMP 36.4–36.6; O2SAT 92–97
[2022-07-25] MEDS: ALBUTEROL SULFATE NEB 2.5 MG/3 ML INH INHALATION ×6 (00:38→20:02)
[2022-07-25] MEDS: IPRATROPIUM BR 0.02% INH SOLN 0.5 MG/2.5 ML VIAL INHALATION ×6 (00:38→20:02)
[2022-07-25] MEDS: diphenhydrAMINE HCl CAP 25 MG CAPSULE 50 MG PO ×4 (00:51→20:43)
[2022-07-25] MEDS: traMADol HCL (*CRX) 50 MG TABLET PO ×4 (00:52→20:44)
[2022-07-25] MEDS: LINACLOTIDE 145 MCG CAPSULE PO (05:34)
[2022-07-25] MEDS: methylPREDNISolone SOD SUCC 40 MG VIAL IV PUSH (05:36)
[2022-07-25 06:11] LABS: Hematocrit 45.2 % (42.0-52.0); Hemoglobin 14.4 g/dL (14.0-18.0); Mean Corpuscular HGB Conc 31.9 g/dl (32-36); Mean Corpuscular Hemoglobin 28.5 pg (26-34); Mean Corpuscular Volume 89.3 fl (80-100); Mean Platelet Volume 11.2 fl (7.4-10.4); Platelet Count Result 246 k/mm3 (150-375); Red Blood Count 5.06 M/mm3 (4.6-6.20); Red Cell Distribution Width 14.2 % (11.5-14.5); White Blood Count 10.3 K/mm3 (4.5-10.0)
[2022-07-25 06:23] LABS: Alanine Aminotransferase 38 U/L (6-50); Albumin Level 4.4 g/dL (3.5-5.1); Alkaline Phosphatase 67 U/L (38-126); Anion Gap 13 mmol/L (8-16); Aspartate Amino Transferase 24 U/L (17-59); Bilirubin,Total 0.4 mg/dL (0.2-1.3); Blood Urea Nitrogen 33 mg/dL (9-20); Carbon Dioxide 27 mmol/L (22-30); Chloride 97 mmol/L (98-107); Estimated CRCL calculation 74 ml/min; Estimated Glomerular Filt Rate > 60; Glucose 233 mg/dL (65-110); Magnesium 2.3 mg/dL (1.6-2.3); Phosphorus 3.8 mg/dL (2.5-4.5); Potassium 4.9 mmol/L (3.4-5.0); Sodium 137 mmol/L (137-145)
[2022-07-25] MEDS: carvediloL 3.125 MG TABLET PO ×2 (08:19→17:48)
[2022-07-25] MEDS: ASPIRIN 81 MG ENTERIC TABLET PO (08:21)
[2022-07-25] MEDS: amLODIPine BESYLATE 5 MG TABLET 10 MG PO (08:21)
[2022-07-25] MEDS: GABAPENTIN 300 MG CAPSULE PO ×3 (08:22→17:48)
[2022-07-25] MEDS: LACTULOSE 20 GM/30 ML UDC PO (08:22)
[2022-07-25] MEDS: CLOPIDOGREL BISULFATE 75 MG TABLET PO (08:22)
[2022-07-25] MEDS: ENOXAPARIN 40 MG/0.4 ML SYRINGE SUB-Q (08:22)
[2022-07-25] MEDS: ATORVASTATIN 40 MG TABLET 80 MG PO (08:22)
[2022-07-25] MEDS: polyethylene glycoL 3350 17 GM POWD.PACK PO (08:34)
[2022-07-25] MEDS: CLOBETASOL PROPIONATE 0.05% CREAM 15 GM 1 APPLIC TOPICAL ×2 (08:35→17:49)
[2022-07-25 08:57] LABS: Glucose Point of Care 244 mg/dl (65-105)
--- NOTE | 2022-07-25 09:17 | PM.PNPUL ---
Progress Note: A&P Assessment and Plan (1) Acute exacerbation of chronic obstructive pulmonary disease: Code(s): J44.1 - Chronic obstructive pulmonary disease with (acute) exacerbation Status: Acute Assessment and Plan: Patient carries diagnosis of COPD since 2019 on trilogy inhaler. I have no PFTs and no prior CT scans of the chest. He has the tobacco history of 61 pack years quit on 06/01/2022. He ran out of his medicines and presented with shortness of breath, 3 days worsening cough and change in phlegm volume and color. His chest x-ray shows no focal infiltrates his COVID RT PCR test is negative. There is no evidence of fluid overload on exam. 07/21 I will treat for COPD exacerbation. I will discontinue his trelegy inhaler and place him on nebulized albuterol and ipratropium Q 6 hours. I would initiate azithromycin IV for tracheobronchitis at this time. Currently patient has no active wheezing following Solu-Medrol 125 given on 07/20. I will continue prednisone 40 mg p.o. q.day. Currently he is on room air with saturations 93%. D-dimer was positive at 1.93 and started on Lovenox 110 mg IV b.i.d.. 07/22 The patient slept the hospital auto Pap last night and did well. Overall he states he feels about the same. He has no fever, more coughing today, minimal phlegm and continued shortness of breath. His room air saturations are 94%. His white blood cell count is 10.5, is creatinine is 1.30. Continue prednisone 40 mg p.o. q.day (day 3 steroids), azithromycin day 2, and will could increase his albuterol and ipratropium nebulizers to q.4 hours. Upper and lower extremity Dopplers negative for DVT. CT angiogram negative for pulmonary embolism no pulmonary infiltrates or consolidations. Lovenox changed to DVT prophylaxis. 07/23 Patient slept well with hospital auto Pap last night. Overall he is minimally improved since admission. Cough persists and he is able to expectorate 5 yellow to green phlegm today. Room air saturations are 98%. White blood cell count 10.3, creatinine 1.30. No wheezes on exam. Continue prednisone 40 mg p.o. q.day (day 4 steroids), azithromycin day 3, and albuterol and ipratropium nebulizers to q.4 hours. 07/24 patient slept well with a hospital auto Pap. Continues with minimal improvement. Had a wheezing episode last night. Cough persists. Room air saturations 96%. white blood cell count 9.4, creatinine 1.10. Placed the patient on Solu-Medrol 40 q.6 for minimal improvement and intermittent wheezing while on oral steroids. Azithromycin day 4, continue albuterol and ipratropium nebulizers q.4 hours. Patient has a longstanding constipation problem and has been constipated in the hospital without a bowel movement. continue aggressive therapy per hospitalist team. 07/25 Patient slept well on the hospital auto Pap. continues to improve. States he is 70-75% back to his baseline. The cough is better minimal phlegm. White blood cell count 10.3, creatinine 1.1, room air saturations 97%. Walking with walker but weak. No wheezing on exam. I will decrease the Solu-Medrol to 20 mg IV q.6 today. change albuterol and ipratropium to q.4 hours while awake today. Day 5. Azithromycin and will DC after today's dose. No bowel movement and says its hard to breath because abdominal distention. Escalate therapy per hospitalist. Will follow with you (2) SINDHU (obstructive sleep apnea): Code(s): G47.33 - Obstructive sleep apnea (adult) (pediatric) Status: Acute Assessment and Plan: 07/21 obstructive sleep apnea diagnosed at [facility] on 06/09/2022 with an overnight CPAP titration on 06/11 and awaiting home CPAP setup. The patient has been started on hospital auto Pap 5-15 and he said that the settings felt good last night and he slept well. I will continue these for now. 07/22 Patient did well on hospital auto Pap last night and will continue. 07/23 Continue hospital
[2022-07-25] MEDS: INSULIN ASPART (*BKC) 100 UNITS/ML 40 UNITS SUB-Q (09:42)
[2022-07-25] MEDS: INSULIN ASPART (*BKC) 100 UNITS/ML SUB-Q ×2 (09:43→17:50)
[2022-07-25 11:57] LABS: Glucose Point of Care 410 mg/dl (65-105)
[2022-07-25] MEDS: INSULIN ASPART (*BKC) 100 UNITS/ML 50 UNITS SUB-Q ×2 (12:18→17:50)
[2022-07-25] MEDS: methylPREDNISolone SOD SUCC 40 MG VIAL 20 MG IV PUSH ×3 (12:21→20:29)
[2022-07-25] MEDS: MAGNESIUM HYDROXIDE SUSP 30 ML UDC PO (14:19)
--- NOTE | 2022-07-25 14:40 | PCPTNOTE ---
The patient treatment was not able to be completed on 07/25/22 due to just receiving an enema. Will plan to continue treatment per plan of care.
--- NOTE | 2022-07-25 16:34 | PM.IMPN ---
Progress Note: A&P Assessment and Plan (1) Elevated troponin: Code(s): R77.8 - Other specified abnormalities of plasma proteins Status: Acute Assessment and Plan: Trajectory is flat. Not suggestive of acute coronary syndrome History of CABG and stent in the past Cardiology following. Chest pain and shortness of breath suspected to be related to COPD exacerbation (2) Coronary artery disease: Code(s): I25.10 - Atherosclerotic heart disease of [place] coronary artery without angina pectoris Status: Chronic Assessment and Plan: Patient with history CABG, seen by cardiology does not suspect acute coronary syndrome (3) ELOISA (acute kidney injury): Code(s): N17.9 - Acute kidney failure, unspecified Status: Resolved Assessment and Plan: ivf discontinued (4) Acute exacerbation of chronic obstructive pulmonary disease: Code(s): J44.1 - Chronic obstructive pulmonary disease with (acute) exacerbation Status: Acute Assessment and Plan: Continue on steroid and bronchodilator as well as inhaled steroid pulmonary following (5) Diabetic neuropathy: Code(s): E11.40 - Type 2 diabetes mellitus with diabetic neuropathy, unspecified Status: Acute Assessment and Plan: [place] Huggins (6) Peripheral arterial disease: Code(s): I73.9 - Peripheral vascular disease, unspecified Status: Chronic Assessment and Plan: Patient is seen by vascular surgeon in the past and will need to follow up as patient has significant claudication Duplex Scan Lower Extremity Artery 07/21/22 07:54 IMPRESSION: 1. Patent stents in the superficial femoral arteries. 2. Increased velocity gradients in left profunda femoral artery and left anterior tibial artery, consistent with moderate to severe stenosis. (7) Diabetes type 2, uncontrolled: Status: Acute Assessment and Plan: continue home regimen and monitor with sliding (8) HTN (hypertension) with goal to be determined: Code(s): I10 - Essential (primary) hypertension Status: Chronic Assessment and Plan: home regimen (9) Constipation: Code(s): K59.00 - Constipation, unspecified Status: Acute Assessment and Plan: .continue lactulose and laxatives Status post enema On Linzess senna S MiraLax lactulose ct abdomen and pelvis reviewed. mom x 1 07/24 will repeat this and also give a fleet enema today x 1 (10) Urinary hesitancy: Code(s): R39.11 - Hesitancy of micturition Status: Acute Assessment and Plan: recheck ua which was negative already on flomax 0.8 mg hs Plan SINDHU on CPAP History of psoriasis used to be on Humira in the past DVT prophylaxis : Lovenox Code status full code Subjective Date/time seen: 07/25/22 16:34 Interval history: he repots abdominal discomfort and not having a BM. He reports his breathing is otherwise getting better. Reports ongoing back pain is chronic. Review of Systems Review of Systems: All systems reviewed & are unremarkable except as noted in HPI and below Exam Narrative: Morbidly obese not in acute distress LUNGS: Bilateral fair air entry with harsh breath sounds HEART: regular rate and rhythm S1; S2 ABDO: distended soft nontender Lower extremities: no edema no cyanosis or clubbing SKIN: nonjaundiced; no rash Neuro: grossly intact Objective Data Vital Signs Vital Signs: Vital Signs - 24 hr 07/24/22 17:26 07/24/22 19:55 07/24/22 21:10 Temperature 98 F Pulse Rate 84 88 Respiratory Rate 16 Blood Pressure 129/70 Pulse Oximetry 96 Oxygen Delivery Room Air 07/24/22 20:00 07/24/22 20:35 07/24/22 20:35 Temperature Pulse Rate 89 85 Respiratory Rate 18 Blood Pressure Pulse Oximetry 94 Oxygen Delivery Room Air 07/24/22 20:50 07/25/22 00:40 07/24/22 20:48 Temperature Pulse Rate 87 81 87 Respiratory Rate 18 15 18 Blood Pressure
[2022-07-25 17:27] LABS: Glucose Point of Care 384 mg/dl (65-105)
[2022-07-25 20:25] LABS: Glucose Point of Care 401 mg/dl (65-105)
[2022-07-25] MEDS: PEG (High)/E-LYTE SOLN 4,000 ML BTL 3000 ML PO (20:28)
[2022-07-25] MEDS: SENNA/DOCUSATE SODIUM TABLET 1 TAB PO (20:29)
[2022-07-25] MEDS: TAMSULOSIN HCL 0.4 MG CAPSULE 0.8 MG PO (20:29)
[2022-07-25] MEDS: INSULIN GLARGINE (*BKC) 100 UNITS/ML 60 UNITS SUB-Q (20:34)
[2022-07-26] VITALS (7 sets, daily range): BP systolic 156; BP diastolic 83; PULSE 75–100; RESP 12–16; TEMP 36.6; O2SAT 93–96
[2022-07-26] MEDS: traMADol HCL (*CRX) 50 MG TABLET PO ×2 (05:04→11:07)
[2022-07-26] MEDS: diphenhydrAMINE HCl CAP 25 MG CAPSULE 50 MG PO ×2 (05:04→11:07)
[2022-07-26] MEDS: methylPREDNISolone SOD SUCC 40 MG VIAL 20 MG IV PUSH (05:04)
[2022-07-26] MEDS: LINACLOTIDE 145 MCG CAPSULE PO (05:05)
[2022-07-26 06:11] LABS: Hematocrit 45.9 % (42.0-52.0); Hemoglobin 14.5 g/dL (14.0-18.0); Mean Corpuscular HGB Conc 31.6 g/dl (32-36); Mean Corpuscular Hemoglobin 28.2 pg (26-34); Mean Corpuscular Volume 89.3 fl (80-100); Mean Platelet Volume 10.7 fl (7.4-10.4); Platelet Count Result 268 k/mm3 (150-375); Red Blood Count 5.14 M/mm3 (4.6-6.20); Red Cell Distribution Width 14.2 % (11.5-14.5); White Blood Count 13.7 K/mm3 (4.5-10.0)
[2022-07-26 06:35] LABS: Alanine Aminotransferase 46 U/L (6-50); Albumin Level 4.1 g/dL (3.5-5.1); Alkaline Phosphatase 74 U/L (38-126); Anion Gap 11 mmol/L (8-16); Aspartate Amino Transferase 27 U/L (17-59); Bilirubin,Total 0.4 mg/dL (0.2-1.3); Blood Urea Nitrogen 34 mg/dL (9-20); Calcium 8.8 mg/dL (8.4-10.2); Carbon Dioxide 33 mmol/L (22-30); Chloride 93 mmol/L (98-107); Estimated CRCL calculation 74 ml/min; Estimated Glomerular Filt Rate > 60; Glucose 272 mg/dL (65-110); Magnesium 2.3 mg/dL (1.6-2.3); Phosphorus 3.7 mg/dL (2.5-4.5); Potassium 4.7 mmol/L (3.4-5.0); Sodium 137 mmol/L (137-145)
[2022-07-26] MEDS: IPRATROPIUM BR 0.02% INH SOLN 0.5 MG/2.5 ML VIAL INHALATION (08:01)
[2022-07-26] MEDS: ALBUTEROL SULFATE NEB 2.5 MG/3 ML INH INHALATION (08:01)
[2022-07-26 08:45] LABS: Glucose Point of Care 257 mg/dl (65-105)
[2022-07-26] MEDS: carvediloL 3.125 MG TABLET PO (08:50)
[2022-07-26] MEDS: ASPIRIN 81 MG ENTERIC TABLET PO (08:52)
[2022-07-26] MEDS: CLOPIDOGREL BISULFATE 75 MG TABLET PO (08:52)
[2022-07-26] MEDS: ATORVASTATIN 40 MG TABLET 80 MG PO (08:52)
[2022-07-26] MEDS: CLOBETASOL PROPIONATE 0.05% CREAM 15 GM 1 APPLIC TOPICAL (08:52)
[2022-07-26] MEDS: amLODIPine BESYLATE 5 MG TABLET 10 MG PO (08:52)
[2022-07-26] MEDS: GABAPENTIN 300 MG CAPSULE PO ×2 (08:53→12:16)
[2022-07-26] MEDS: MAGNESIUM HYDROXIDE SUSP 30 ML UDC PO (08:53)
[2022-07-26] MEDS: LACTULOSE 20 GM/30 ML UDC PO (08:53)
[2022-07-26] MEDS: ENOXAPARIN 40 MG/0.4 ML SYRINGE SUB-Q (08:53)
[2022-07-26] MEDS: polyethylene glycoL 3350 17 GM POWD.PACK PO (08:55)
[2022-07-26] MEDS: INSULIN ASPART (*BKC) 100 UNITS/ML SUB-Q ×2 (08:56→12:17)
[2022-07-26] MEDS: INSULIN ASPART (*BKC) 100 UNITS/ML 50 UNITS SUB-Q ×2 (08:56→12:16)
--- NOTE | 2022-07-26 09:00 | PM.PNPUL ---
Progress Note: A&P Assessment and Plan (1) Acute exacerbation of chronic obstructive pulmonary disease: Code(s): J44.1 - Chronic obstructive pulmonary disease with (acute) exacerbation Status: Acute Assessment and Plan: Patient carries diagnosis of COPD since 2019 on trilogy inhaler. I have no PFTs and no prior CT scans of the chest. He has the tobacco history of 61 pack years quit on 06/01/2022. He ran out of his medicines and presented with shortness of breath, 3 days worsening cough and change in phlegm volume and color. His chest x-ray shows no focal infiltrates his COVID RT PCR test is negative. There is no evidence of fluid overload on exam. 07/21 I will treat for COPD exacerbation. I will discontinue his trelegy inhaler and place him on nebulized albuterol and ipratropium Q 6 hours. I would initiate azithromycin IV for tracheobronchitis at this time. Currently patient has no active wheezing following Solu-Medrol 125 given on 07/20. I will continue prednisone 40 mg p.o. q.day. Currently he is on room air with saturations 93%. D-dimer was positive at 1.93 and started on Lovenox 110 mg IV b.i.d.. 07/22 The patient slept the hospital auto Pap last night and did well. Overall he states he feels about the same. He has no fever, more coughing today, minimal phlegm and continued shortness of breath. His room air saturations are 94%. His white blood cell count is 10.5, is creatinine is 1.30. Continue prednisone 40 mg p.o. q.day (day 3 steroids), azithromycin day 2, and will could increase his albuterol and ipratropium nebulizers to q.4 hours. Upper and lower extremity Dopplers negative for DVT. CT angiogram negative for pulmonary embolism no pulmonary infiltrates or consolidations. Lovenox changed to DVT prophylaxis. 07/23 Patient slept well with hospital auto Pap last night. Overall he is minimally improved since admission. Cough persists and he is able to expectorate 5 yellow to green phlegm today. Room air saturations are 98%. White blood cell count 10.3, creatinine 1.30. No wheezes on exam. Continue prednisone 40 mg p.o. q.day (day 4 steroids), azithromycin day 3, and albuterol and ipratropium nebulizers to q.4 hours. 07/24 patient slept well with a hospital auto Pap. Continues with minimal improvement. Had a wheezing episode last night. Cough persists. Room air saturations 96%. white blood cell count 9.4, creatinine 1.10. Placed the patient on Solu-Medrol 40 q.6 for minimal improvement and intermittent wheezing while on oral steroids. Azithromycin day 4, continue albuterol and ipratropium nebulizers q.4 hours. Patient has a longstanding constipation problem and has been constipated in the hospital without a bowel movement. continue aggressive therapy per hospitalist team. 07/25 Patient slept well on the hospital auto Pap. continues to improve. States he is 70-75% back to his baseline. The cough is better minimal phlegm. White blood cell count 10.3, creatinine 1.1, room air saturations 97%. Walking with walker but weak. No wheezing on exam. I will decrease the Solu-Medrol to 20 mg IV q.6 today. change albuterol and ipratropium to q.4 hours while awake today. Day 5. Azithromycin and will DC after today's dose. No bowel movement and says its hard to breath because abdominal distention. Escalate therapy per hospitalist. 07/26 When patient is sitting he says his breathing is back if normal. He still has some dyspnea on exertion. Room air saturations 97%. White blood cell count 13.7, creatinine 1.10, no wheezing on exam. He does complain of sinus congestion. Will start flonase. From a pulmonary perspective patient is ready to be discharged on these pulmonary medicines: Prednisone 40 mg PO Q day X 5 day Trelegy 100/62.03/25 at 1 puff Q day Flonase 1 spray each nares BID Rescue albuterol 2 puffs q.4 hours p.r.n. shortness of breath or wheezing. Oxygen at rest and with ambulation per forma
--- NOTE | 2022-07-26 10:41 | PM.DS ---
DS: Admitting Diagnosis Discharge Date 07/26/2022 Admitting Diagnosis Chest pain/shortness of breath DS: Discharge Diagnosis Discharge Diagnosis (1) Elevated troponin: Code(s): R77.8 - Other specified abnormalities of plasma proteins Status: Acute (2) Coronary artery disease: Code(s): I25.10 - Atherosclerotic heart disease of [place] coronary artery without angina pectoris Status: Chronic (3) ELOISA (acute kidney injury): Code(s): N17.9 - Acute kidney failure, unspecified Status: Resolved (4) Acute exacerbation of chronic obstructive pulmonary disease: Code(s): J44.1 - Chronic obstructive pulmonary disease with (acute) exacerbation Status: Acute (5) Diabetic neuropathy: Code(s): E11.40 - Type 2 diabetes mellitus with diabetic neuropathy, unspecified Status: Acute (6) Peripheral arterial disease: Code(s): I73.9 - Peripheral vascular disease, unspecified Status: Chronic (7) Diabetes type 2, uncontrolled: Status: Acute (8) HTN (hypertension) with goal to be determined: Code(s): I10 - Essential (primary) hypertension Status: Chronic (9) Constipation: Code(s): K59.00 - Constipation, unspecified Status: Acute (10) Urinary hesitancy: Code(s): R39.11 - Hesitancy of micturition Status: Acute DS: Summary Hospital Course Hospital Course: # chest pain/shortness of breath: Chest pain is reproducible and pleuritic in nature. He did have mildly elevated troponin. 0.117-0.10 6-0.065. He also had ELOISA with serum creatinine of 2.5 on admission. Clinical history symptoms not consistent with ACS. Recent echocardiogram in April showed ejection fraction 50-55% with no significant valvular disease. He is on aspirin Plavix high-dose statin amlodipine beta-beau. He also recently had a stress test by his regular independent freight agent which was negative. He will continue to follow-up with his independent freight agent as an outpatient basis. Chest pain shortness of breath suspected to be related to COPD exacerbation. # elevated troponin: Trajectory is flat.? Not suggestive of acute coronary syndrome History of CABG and stent in the past Cardiology following. Chest pain and shortness of breath suspected to be related to COPD exacerbation # coronary artery disease: ?Patient with history CABG,? seen by cardiology does not suspect acute coronary syndrome # a acute kidney injury: Creatinine was 2.5 on admission which resolved with IV fluid treatment. Baseline by the time of discharge # acute COPD exacerbation: ?Continue on steroid and bronchodilator as well as inhaled steroid pulmonary following. Switch steroid to oral at discharge follow-up with Pulmonary as an outpatient basis # diabetic neuropathy: On gabapentin which will be continued # peripheral arterial disease: ?Patient is seen by vascular surgeon in the past and will need to follow up as patient has significant claudication Duplex Scan Lower Extremity Artery? 07/21/22 07:54 IMPRESSION: 1. Patent stents in the superficial femoral arteries. 2. Increased velocity gradients in left profunda femoral artery and left anterior tibial artery, consistent with moderate to severe stenosis. # type 2 diabetes on insulin therapy: ?continue home regimen and monitor with sliding # hypertension: ?home regimen # acute on chronic constipation: He was continued on multiple bowel regimen. Subsequently got several suppository and enema without help. CT abdomen pelvis with moderate amount of stool with no acute findings of obstruction. His subsequently given GoLYTELY which helped him have several bowel movements. He will continue with aggressive bowel regimen at home with lactulose/senna/Colace/MiraLax. He is also on Linzess. Delete that # urinary hesitancy: UA was negative. He does have history of BPH on Flomax 0.8 mg HS. His urinary hesitancy slightly related to ongoing constipation. #
[2022-07-26] MEDS: FLUTICASONE PROPIONATE 0.05% NA SPR 16 GM BTL (*BKC) 1 SPRAY NASAL (11:06)
[2022-07-26] MEDS: predniSONE 20 MG TABLET 40 MG PO (11:06)
[2022-07-26] MEDS: ALBUTEROL SULFATE NEB 2.5 MG/3 ML INH (11:49)
[2022-07-26] MEDS: IPRATROPIUM BR 0.02% INH SOLN 0.5 MG/2.5 ML VIAL (11:50)
[2022-07-26 12:16] LABS: Glucose Point of Care 294 mg/dl (65-105)
== END 2022-07-26 12:52 | disposition home or self-care (01) | DRG 191 ==
LOC: ANHED 21:53 → ANHIMU 23:48 → ANH2MED 07-23 14:41
PROVIDERS: Family Medicine; Internal Medicine Pulmonary Disease; Physician Assistant; Admitting Provider Internal Medicine; Emergency Provider Emergency Medicine; PCP Physician Assistant; Visit Provider Internal Medicine
DX: J44.1 Chronic obstructive pulmonary disease with (acute) exacerbation (principal); N17.9 Acute kidney failure, unspecified; R07.9 Chest pain, unspecified; B19.20 Unspecified viral hepatitis C without hepatic coma; I25.10 Atherosclerotic heart disease of native coronary artery without angina pectoris; I10 Essential (primary) hypertension; I73.9 Peripheral vascular disease, unspecified; E11.51 Type 2 diabetes mellitus with diabetic peripheral angiopathy without gangrene; E11.40 Type 2 diabetes mellitus with diabetic neuropathy, unspecified; E78.5 Hyperlipidemia, unspecified; E66.9 Obesity, unspecified; N40.0 Benign prostatic hyperplasia without lower urinary tract symptoms; K59.00 Constipation, unspecified; R39.11 Hesitancy of micturition; R77.8 Other specified abnormalities of plasma proteins; G47.33 Obstructive sleep apnea (adult) (pediatric); F19.11 Other psychoactive substance abuse, in remission; Z20.822 Contact with and (suspected) exposure to COVID-19; Z85.528 Personal history of other malignant neoplasm of kidney; Z79.4 Long term (current) use of insulin; Z79.02 Long term (current) use of antithrombotics/antiplatelets; Z95.1 Presence of aortocoronary bypass graft; Z87.891 Personal history of nicotine dependence; Z95.820 Peripheral vascular angioplasty status with implants and grafts; Z79.84 Long term (current) use of oral hypoglycemic drugs; Z68.38 Body mass index [BMI] 38.0-38.9, adult
CPT/HCPCS: 36415; 71046; 71275; 74019; 74176; 80053; 80069; 81001; 82948; 83735; 83880; 84100; 84484; 85025; 85027; 85380; 85610; 85730; 87040; 93005; 93925; 93970; 94640; 96365; 96372; 96374; 96375; 97110; 97116; 97162; 97165; 97530; 97535; 99285; A9270; C9803; G0378; J0456; J1650; J1815; J2920; J2930; J7030; J7512; Q9967; U0003; U0005

== ENCOUNTER 2022-08-13 10:23 | Outpatient (CLI) | payer MEDICARE, MEDICAID, SELFPAY ==
[2022-08-15 15:31] LABS: NIL 0.02 IU/mL; Quantiferon TB Plus, 1T NEGATIVE (NEGATIVE); TB1-NIL <0.00 IU/mL
== END 2022-08-13 10:24 | disposition home or self-care (01) ==
LOC: ANHLAB 10:29
PROVIDERS: PCP Physician Assistant
DX: L40.0 Psoriasis vulgaris (principal)
CPT/HCPCS: 36415; 86480

== ENCOUNTER 2022-08-31 02:38 | Day surgery (SDC) | payer MEDICARE, MEDICAID, SELFPAY ==
--- NOTE | 2022-08-27 09:13 | PC.NURSE ---
Multiple attempts made to get clearance from Dr. Rowe office to hold Plavix, faxed 08/14/2022, office called 08/21/2022 spoke with Janine, message sent to Dr. Kc, spoke with Janine 08/25/2022 and 08/26/22, she will send new messages. Office called 08/27/[address] Kc on vacation will send message to Dr. Fox, Pt called messages left 08/21/22, 08/26/22, pt returned call on 08/26/2022 message left on machine, called pt back and went to [employer]. 08/27/2022 0900, message left for pt to hold Plavix today and to call back angela to complete interview.
[2022-08-27 13:52] VITALS: BMI 40.0
[2022-08-31] MEDS: LACTATED RINGERS 1,000 ML 150 ML IV CONT (06:39)
[2022-08-31 06:45] LABS: Glucose Point of Care 100 mg/dl (65-105)
--- NOTE | 2022-08-31 06:58 | WPDANESEPPF ---
Anes - Initial Pre Proc Eval Procedure: Operation Date: 08/31/22 07:30 Proposed Procedures p Colonoscopy - Amarjit Hdez MD Date/Time: 08/31/22 06:58 Surgeon: Amarjit Hdez MD Pre Op Diagnosis: Change in bowel habits Patient Data Age: 62 Gender: M Height: 1.7 m Weight: 117.6 kg Allergies Allergy/AdvReac Type Severity Reaction Status Date / Time No Known Allergies Allergy Verified 08/31/22 06:23 Home Medications Medication Instructions Recorded Confirmed Type albuterol sulfate 90 mcg/actuation 2 puff inhalation Q4-6H PRN 02/27/22 08/27/22 Rx aerosol inhaler Shortness Of Breath 30 days #1 inh amlodipine 10 mg tablet 10 mg PO DAILY 30 days #30 tabs 02/27/22 08/27/22 Rx aspirin 81 mg tablet,delayed 81 mg PO DAILY 30 days #30 tabs 02/27/22 08/27/22 Rx release carvedilol 3.125 mg tablet (Coreg) 3.125 mg PO BID 30 days #60 tabs 02/27/22 08/27/22 Rx furosemide 20 mg tablet 20 mg PO DAILY 30 days #30 tabs 02/27/22 08/27/22 Rx lisinopril 20 mg tablet 20 mg PO DAILY 30 days #30 tabs 02/27/22 08/27/22 Rx tamsulosin 0.4 mg capsule 0.8 mg PO HS 30 days #60 caps 02/27/22 08/27/22 Rx tiotropium bromide 18 mcg capsule 1 cap inhalation DAILY 30 days #1 02/27/22 08/27/22 Rx with inhalation device inh atorvastatin 80 mg tablet 80 mg PO DAILY 07/20/22 08/27/22 History dapagliflozin 10 mg tablet 10 mg PO DAILY 07/20/22 08/27/22 History (Farxiga) fluticasone fur. 100 mcg-umeclid 1 inh inhalation DAILY 07/20/22 08/27/22 History 62.5 mcg-vilant 25 mcg inhalat.powder (Trelegy Ellipta) gabapentin 300 mg capsule 600 mg PO TID 07/20/22 08/27/22 History insulin aspart U-100 100 unit/mL 50 unit subcut TIDWM 07/20/22 08/27/22 History subcutaneous solution (Novolog U-100 Insulin aspart) metformin 500 mg tablet,extended 500 mg PO DAILY 07/20/22 08/27/22 History release 24 hr albuterol sulfate 2.5 mg/3 mL 2.5 mg inhalation Q4-6H PRN 07/21/22 08/27/22 History (0.083 %) solution for nebulization Shortness Of Breath clobetasol 0.05 % topical cream 1 applic topical BID PRN PSORIASIS 07/21/22 08/27/22 History clopidogrel 75 mg tablet 75 mg PO DAILY 07/21/22 08/31/22 History insulin glargine 100 unit/mL 60 units subcut HS 07/21/22 08/27/22 History subcutaneous solution (Lantus U-100 Insulin) blood-glucose meter #1 ea 07/26/22 08/13/22 Rx fluticasone propionate 50 1 spray intranasal Q12HR #16 grams 07/26/22 08/27/22 Rx mcg/actuation nasal spray,suspension sennosides 8.6 mg-docusate sodium 1 tab-cap PO HS #30 tabs 07/26/22 08/27/22 Rx 50 mg tablet (Senokot-S) tramadol 50 mg tablet 50 mg PO Q6H PRN Pain Rated 6 Or 07/26/22 08/27/22 Rx Greater #10 tabs linaclotide 290 mcg capsule 290 mcg PO DAILY 1 month #30 caps 08/13/22 08/27/22 Rx (Linzess) omeprazole 40 mg capsule,delayed 40 mg PO DAILY 08/27/22 08/27/22 History release peg 3350-electrolytes 236 240 ml PO Q10M 2 days #8,000 mL 08/28/22 Rx gram-22.74 gram-6.74 gram-5.86 gram solution (Golytely) Laboratory Tests 08/31/22 06:42 POC Capillary Glucose 100 mg/dl mg/dl (65-105) Patient hx anesthesia problems: none Family hx anesthesia problems: none Results Review: All pre-operative results and documents have been reviewed as part of the pre-operative evaluation. [facility] Past Medical History Medical History COPD (chronic obstructive pulmonary disease) Coronary artery disease Diabetes type 2, uncontrolled Dyslipidemia Hepatitis C HTN (hypertension) with goal to be determined Peripheral arterial disease Renal cell carcinoma Surgical History Surgical History History of lumbosacral spine surgery Hx of CABG Status post peripheral artery angioplasty with insertion of stent Family History Family History Sibling Cerebr
[2022-08-31 07:00] VITALS: BP 165/73; PULSE 95; RESP 18; TEMP 36.4; O2SAT 94
--- NOTE | 2022-08-31 07:24 | WPDHPUPDATE1 ---
History and Physical Update Update Date/Time: 08/31/22 07:24 History and Physical has been reviewed, including an updated exam of the patient. There are NO changes in the patient's condition. Risks, benefits, and alternatives have been discussed and questions answered. Patient agrees to proceed with procedure.
--- NOTE | 2022-08-31 07:50 | SUR.OPER ---
DR. CONNOLLY MADE AWARE THAT THERE IS A LOT OF DEBRIS IN SPECIMEN CONTAINER, UNABLE TO IDENTIFY IF BOTH POLYPS WERE COLLECTED.
[2022-08-31 07:53] VITALS: BP 143/76; PULSE 97; RESP 20; O2SAT 97
[2022-08-31 08:03] VITALS: BP 160/90; PULSE 83; RESP 19; O2SAT 98
[2022-08-31 08:13] VITALS: BP 178/85; PULSE 91; RESP 21; O2SAT 97
[2022-08-31 08:15] LABS: Glucose Point of Care 86 mg/dl (65-105)
== END 2022-08-31 08:24 | disposition home or self-care (01) ==
PROVIDERS: PCP Physician Assistant; Visit Provider Internal Medicine Gastroenterology
PROC: 0DJD8ZZ Inspection of Lower Intestinal Tract, Via Natural or Artificial Opening Endoscopic (ICD-10-PCS; CPT 45378; principal; 2022-08-31 07:30)
DX: Z12.11 Encounter for screening for malignant neoplasm of colon (principal); K59.00 Constipation, unspecified; D12.3 Benign neoplasm of transverse colon; K64.8 Other hemorrhoids; J44.9 Chronic obstructive pulmonary disease, unspecified; I25.10 Atherosclerotic heart disease of native coronary artery without angina pectoris; I10 Essential (primary) hypertension; E78.5 Hyperlipidemia, unspecified; E11.51 Type 2 diabetes mellitus with diabetic peripheral angiopathy without gangrene; Z85.528 Personal history of other malignant neoplasm of kidney; B19.20 Unspecified viral hepatitis C without hepatic coma; Z95.1 Presence of aortocoronary bypass graft; Z95.820 Peripheral vascular angioplasty status with implants and grafts; Z87.891 Personal history of nicotine dependence; E66.01 Morbid (severe) obesity due to excess calories; Z68.41 Body mass index [BMI] 40.0-44.9, adult; Z79.51 Long term (current) use of inhaled steroids; Z79.82 Long term (current) use of aspirin; Z79.84 Long term (current) use of oral hypoglycemic drugs; Z79.4 Long term (current) use of insulin; Z79.02 Long term (current) use of antithrombotics/antiplatelets
CPT/HCPCS: 45385; 82948; 88305; J2704; J7120

== ENCOUNTER 2022-09-07 15:20 | Emergency (ER) | payer MEDICARE, MEDICAID, SELFPAY ==
--- NOTE | ~2022-09-07 | XR_ITS ---
EXAMINATION: XR chest 2V DATE: 09/07/2022 16:12 INDICATION: Shortness of breath TECHNIQUE: Frontal and lateral views of the chest are obtained COMPARISON: 07/20/2022 FINDINGS: The lungs are free of acute opacities. No pleural effusion or pneumothorax. The cardiomedia stinal silhouette is normal. There is mild thoracic spondylosis. Median sternotomy wires and mediasti nal surgical clips are seen, likely from prior coronary artery bypass grafting. IMPRESSION: 1. No acute cardiopulmonary abnormality. Reviewed, dictated and finalized at location B. NCIAL SALES ASSOCIATE
[2022-09-07 15:26] VITALS: BP 123/59; PULSE 94; RESP 22; TEMP 37.2; O2SAT 98
[2022-09-07 16:03] LABS: Basophils Percent Auto 0.3 % (0.2-1.2); Eosinophils Percent Auto 0.1 % (0-4.4); Hematocrit 44.7 % (42.0-52.0); Hemoglobin 14.3 g/dL (14.0-18.0); Immature Granulocyte Absolute 0.13 K/mm3 (0.00-0.031); Immature Granulocyte Percent A 1.2 % (0-0.5); Lymphocytes Absolute Auto 0.75 K/mm3 (0.9-3.2); Lymphocytes Percent Auto 7.1 % (18.3-44.2); Mean Corpuscular Hemoglobin 28.9 pg (26-34); Mean Corpuscular Volume 90.3 fl (80-100); Mean Platelet Volume 10.5 fl (7.4-10.4); Monocytes Absolute Auto 0.4 K/mm3 (0.1-0.6); Monocytes Percent Auto 3.8 % (2.6-8.5); Neutrophils Absolute Auto 9.3 K/mm3 (1.3-6.7); Neutrophils Percent Auto 87.5 % (45.5-73.1); Platelet Count Result 236 k/mm3 (150-375); Red Blood Count 4.95 M/mm3 (4.6-6.20); Red Cell Distribution Width 16.8 % (11.5-14.5); White Blood Count 10.6 K/mm3 (4.5-10.0)
[2022-09-07 16:13] LABS: Alanine Aminotransferase 32 U/L (6-50); Albumin Level 4.2 g/dL (3.5-5.1); Alkaline Phosphatase 70 U/L (38-126); Anion Gap 16 mmol/L (8-16); Aspartate Amino Transferase 30 U/L (17-59); Bilirubin,Total 0.3 mg/dL (0.2-1.3); Blood Urea Nitrogen 42 mg/dL (9-20); Calcium 8.4 mg/dL (8.4-10.2); Carbon Dioxide 22 mmol/L (22-30); Chloride 104 mmol/L (98-107); Estimated CRCL calculation 57 ml/min; Estimated Glomerular Filt Rate 51; Glucose 181 mg/dL (65-110); Sodium 142 mmol/L (137-145)
--- NOTE | 2022-09-07 20:27 | PC.NURSE ---
no answer at triage
== END 2022-09-07 22:02 | disposition left against medical advice (07) ==
PROVIDERS: Emergency Provider Emergency Medicine; PCP Physician Assistant
DX: R06.02 Shortness of breath (principal)
CPT/HCPCS: 36415; 71046; 80053; 85025; 99199

== ENCOUNTER 2022-09-10 18:30 | Emergency (ER) | payer MEDICARE, MEDICAID, SELFPAY ==
--- NOTE | ~2022-09-10 | CT_ITS ---
EXAMINATION: CTA LE DATE: 09/11/2022 00:51 INDICATION: Bilateral lower limb pain. TECHNIQUE: Computed tomographic angiography (CTA) of the pelvis, and both lower extremities was perfo rmed with 150 mL Omnipaque 350 intravenous contrast. Automated exposure control and iterative reconst ruction technique were employed. The dose-length product was 1101.57 mGy-cm. COMPARISON: None. FINDINGS: PELVIC VASCULATURE: There is extensive atherosclerotic disease throughout the bilateral iliac arteries. Mild stenosis in the visualized distal most aspect of the bilateral common iliac arteries. There is severe stenosis at the origins of the bilateral internal iliac arteries. Mild stenosis along the bilateral external brionna ac arteries, right greater than left. RIGHT LOWER EXTREMITY: Atherosclerotic plaque at the bifurcation of the common iliac artery with severe stenosis at the orig in of the right profunda femoral artery. There is an occluded stent of the right superficial femoral artery beginning at its origin extending into the proximal right popliteal artery which remains occlu ded a short distance distal to the stent where there is resupply via collaterals 12 cm above level of the knee joint line. There is a moderate stenosis in the right popliteal artery at the level of the joint line. Mild atherosclerotic plaque along the tibioperoneal trunk. The right posterior tibial and peroneal arteries are atretic but with runoff of the posterior tibial artery below the ankle to supp ly the arteries at the plantar arteries of the foot. There is scattered calcified atherosclerotic tammie que along the anterior tibial artery but with no intervening discernible intraluminal contrast along the anterior tibial artery which is likely occluded along the majority of its length. Minimal opacifi cation of the veins in the foot. LEFT LOWER EXTREMITY: Severe stenosis at the origin of the left profunda femoral artery. Stenting of the left superficial f emoral artery extending to the proximal left popliteal artery. There appears to be a small amount of atherosclerotic plaque resulting in multilevel mild in stent stenosis. Multifocal moderate stenosis a long the left popliteal artery. There is multifocal atherosclerotic plaque along the anterior tibial artery with subtle contrast along some of the intervening segments but additional segments which demo nstrate no discernible contrast which could represent either severe stenosis or more likely multisegm ental occlusions with intermittent resupply. The peroneal artery is opacified but atretic throughout its course. The posterior tibial arteries also atretic with an 8 cm segmental occlusion of the traffic inspector ior tibial artery occurring near its origin with resupply of the atretic more distal artery via colla terals. There is asymmetric clearly discernible venous contrast at the left foot which extends proxim ally to the popliteal vein. ADDITIONAL FINDINGS: Visualized portion of the bowels are normal with no obstruction. Bladder is normal. Prostatomegaly. N o free fluid in the pelvis. Small fat-containing bilateral inguinal hernias. Subcutaneous edema at th e bilateral calves. Mild scattered degenerative skeletal changes in the pelvis and bilateral lower li mbs. IMPRESSION: 1. Extensive atherosclerotic disease in the pelvis with severe stenosis at the origins of both inter nal iliac arteries. 2. Stenting of the bilateral superficial femoral arteries with diffuse thrombosis of the right femora l artery stent. 3. Additional extensive atherosclerotic disease throughout the bilateral lower extremities with singl e vessel runoff to the right ankle via the right posterior tibial artery and with runoff to the left ankle via the peroneal artery and potentially in an atretic intermittently occluded left posterior ti bial artery.
[2022-09-10 18:31] VITALS: BP 134/71; PULSE 92; RESP 18; TEMP 37.1; O2SAT 98
--- NOTE | 2022-09-10 21:09 | ED.LOWEXIN ---
HPI - Extremity Injury (Lower) General Chief Complaint: Extremity Injury, Lower <Robin Fernandes, PRESIDENT PRACTICING UROLOGIST - Last Filed: 09/11/22 01:01> Stated Complaint: r/o blood clot <Robin Fernandes PRESIDENT PRACTICING UROLOGIST - Last Filed: 09/11/22 01:01> Time Seen by Provider: 09/10/22 20:39 <Robin Fernandes, PRESIDENT PRACTICING UROLOGIST - Last Filed: 09/11/22 01:01> History of Present Illness HPI Narrative: 62-year-old male history of peripheral vascular disease, CAD, type 2 diabetes, hypertension, COPD, renal cell carcinoma presents to the emergency room for acute on chronic lower extremity pain. Patient endorses a history of multiple status post peripheral artery angioplasty with insertion of multiple stents and each lower extremity. Patient does not have a vascular surgeon to follow-up with. Patient states that he was seen at his primary care's office on Wednesday, and his blueprint reproducer yesterday and was told to come to the emergency room for further evaluation of his leg pain increasing no skin breakdown to his right lower extremity, and room redness and increased swelling to his right toes. Patient denies any chest pain or shortness of breath. <Robin Fernandes, PRESIDENT PRACTICING UROLOGIST - Last Filed: 09/11/22 01:01> Related Data Home Medications: Home Medications Medication Instructions Recorded Confirmed atorvastatin 80 mg tablet 80 mg PO DAILY 07/20/22 08/27/22 dapagliflozin 10 mg tablet 10 mg PO DAILY 07/20/22 08/27/22 (Farxiga) fluticasone fur. 100 mcg-umeclid 1 inh inhalation DAILY 07/20/22 08/27/22 62.5 mcg-vilant 25 mcg inhalat.powder (Trelegy Ellipta) gabapentin 300 mg capsule 600 mg PO TID 07/20/22 08/27/22 insulin aspart U-100 100 unit/mL 50 unit subcut TIDWM 07/20/22 08/27/22 subcutaneous solution (Novolog U-100 Insulin aspart) metformin 500 mg tablet,extended 500 mg PO DAILY 07/20/22 08/27/22 release 24 hr albuterol sulfate 2.5 mg/3 mL 2.5 mg inhalation Q4-6H PRN 09/20/22 10/27/22 (0.083 %) solution for nebulization Shortness Of Breath clobetasol 0.05 % topical cream 1 applic topical BID PRN PSORIASIS 07/21/22 08/27/22 clopidogrel 75 mg tablet 75 mg PO DAILY 07/21/22 08/31/22 insulin glargine 100 unit/mL 60 units subcut HS 07/21/22 08/27/22 subcutaneous solution (Lantus U-100 Insulin) omeprazole 40 mg capsule,delayed 40 mg PO DAILY 08/27/22 08/27/22 release <Robin Fernandes APRN - Last Filed: 09/11/22 01:01> Allergies/Adverse Reactions: Allergies Allergy/AdvReac Type Severity Reaction Status Date / Time No Known Allergies Allergy Verified 09/07/22 15:29 <Robin Fernandes APRN - Last Filed: 09/11/22 01:01> Review of Systems Review of Systems: CONSTITUTIONAL: Denies fever, chills, or sweats. EYES: Denies visual changes, redness, or discharge. ENT: Denies rhinorrhea, congestion, sore throat, or otalgia. CARDIOVASCULAR: Denies chest pain, palpitations, or edema. RESPIRATORY: Denies cough or dyspnea. GASTROINTESTINAL: Denies abdominal pain, nausea, vomiting, or diarrhea. GENITOURINARY: Denies dysuria or hematuria. SKIN: Denies rash or itching. MUSCULOSKELETAL: Reports bilateral lower extremity pain NEUROLOGIC: Denies headache, numbness, dizziness, or weakness. PSYCHIATRIC: Denies anxiety or depression. <Robin Fernandes APRN - Last Filed: 09/11/22 01:01> [facility] Past Medical History Medical History: Medical History COPD (chronic obstructive pulmonary disease) Coronary artery disease Diabetes type 2, uncontrolled Dyslipidemia Hepatitis C HTN (hypertension) with goal to be determined Peripheral arterial disease Renal cell carcinoma <Robin Fernandes APRN - Last Filed: 09/11/22 01:01> Surgical History Surgical History: Surgical History History of lumbosacral spine surgery Hx of CABG Status post peripheral artery angioplasty with insertion of stent <Robin Fernandes APRN - Last Filed: 09/11/22 0
[2022-09-10] MEDS: HYDROmorphone HCL INJ (*CRX) 1 MG/ML SYR IV PUSH (21:51)
[2022-09-10 22:06] LABS: Basophils Percent Auto 0.3 % (0.2-1.2); Eosinophils Absolute Auto 0.1 K/mm3 (0-0.3); Eosinophils Percent Auto 1.1 % (0-4.4); Hemoglobin 14.2 g/dL (14.0-18.0); Immature Granulocyte Absolute 0.22 K/mm3 (0.00-0.031); Immature Granulocyte Percent A 1.8 % (0-0.5); Lymphocytes Absolute Auto 1.15 K/mm3 (0.9-3.2); Lymphocytes Percent Auto 9.7 % (18.3-44.2); Mean Corpuscular HGB Conc 31.6 g/dl (32-36); Mean Corpuscular Hemoglobin 28.8 pg (26-34); Mean Corpuscular Volume 91.3 fl (80-100); Mean Platelet Volume 10.5 fl (7.4-10.4); Monocytes Absolute Auto 0.9 K/mm3 (0.1-0.6); Monocytes Percent Auto 7.7 % (2.6-8.5); Neutrophils Absolute Auto 9.5 K/mm3 (1.3-6.7); Neutrophils Percent Auto 79.4 % (45.5-73.1); Platelet Count Result 235 k/mm3 (150-375); Red Blood Count 4.93 M/mm3 (4.6-6.20); Red Cell Distribution Width 17.5 % (11.5-14.5); White Blood Count 11.9 K/mm3 (4.5-10.0)
[2022-09-10 22:16] LABS: Partial Thromboplastin Time 26.7 SECONDS (22.3-36.8); Prothrombin Time 12.6 Seconds (11.1-14.7)
[2022-09-10 22:22] LABS: D Dimer 0.49 ug/mL (<0.48)
--- NOTE | 2022-09-10 22:25 | PC.NURSE ---
Doppler pedal pulses. Left pedal pulse, no pedal pulse in right foot. 2nd attempted to locate pedal pulse with no success. ERP aware.
[2022-09-10 22:59] LABS: Alanine Aminotransferase 33 U/L (6-50); Albumin Level 4.3 g/dL (3.5-5.1); Alkaline Phosphatase 76 U/L (38-126); Anion Gap 12 mmol/L (8-16); Aspartate Amino Transferase 30 U/L (17-59); Bilirubin,Total 0.3 mg/dL (0.2-1.3); Blood Urea Nitrogen 37 mg/dL (9-20); Calcium 8.7 mg/dL (8.4-10.2); Carbon Dioxide 27 mmol/L (22-30); Chloride 102 mmol/L (98-107); Estimated CRCL calculation 53 ml/min; Estimated Glomerular Filt Rate 44; Glucose 133 mg/dL (65-110); Potassium 5.5 mmol/L (3.4-5.0); Sodium 141 mmol/L (137-145)
[2022-09-10 23:07] LABS: NT Pro B Type Natriuretic Pept 423 pg/mL (5-100)
[2022-09-10 23:21] VITALS: BP 129/68; PULSE 86; PULSE 88; RESP 12; O2SAT 98
[2022-09-10 23:32] VITALS: BP 124/74; PULSE 82; O2SAT 95
[2022-09-10 23:45] VITALS: PULSE 85
[2022-09-10 23:46] VITALS: BP 124/74; PULSE 83; O2SAT 94
[2022-09-11] VITALS (10 sets, daily range): BP systolic 123–143; BP diastolic 63–75; PULSE 84–92; O2SAT 94–98
[2022-09-11] MEDS: HYDROmorphone HCL INJ (*CRX) 1 MG/ML SYR 0.5 MG IV PUSH ×2 (00:03→05:02)
--- NOTE | 2022-09-11 00:33 | PC.NURSE ---
Addendum entered by Saundra Rosales RN 09/11/22 00:36: Pratibha, with [facility], called and stated pt was accepted, need update on COVID status(swab result), . Original Note: Pratibha, with [facility], called and stated pt was accepted, need update on COVID status(swab result),
[2022-09-11] MEDS: HEPARIN SODIUM 5,000 UNITS/ML VIAL 4000 UNITS IV PUSH (01:03)
[2022-09-11] MEDS: HEPARIN SOD/D5W 100 UNITS/ML 25,000 UNITS/250 ML BAG 10 UNITS IV CONT (01:04)
--- NOTE | 2022-09-11 01:04 | PC.NURSE ---
0026: Accepted at [facility]....waiting for bed.
[2022-09-11 01:49] LABS: SARS-CoV-2 RNA PCR Negative
--- NOTE | 2022-09-11 02:14 | PC.NURSE ---
Attempted to call transfer center x 2 at this time with no answer.
--- NOTE | 2022-09-11 05:44 | PC.NURSE ---
[facility] spoke with LARRY [facility] charge, no available bed at this time. Discharges needed before bed available.
--- NOTE | 2022-09-11 07:15 | PC.NURSE ---
Report given to LARRY Casiano
--- NOTE | 2022-09-11 07:21 | PC.NURSE ---
Report given to LARRY Peña.
[2022-09-11 08:05] LABS: Prothrombin Time 12.8 Seconds (11.1-14.7)
[2022-09-11 08:07] LABS: Partial Thromboplastin Time 90.2 SECONDS (22.3-36.8)
[2022-09-11] MEDS: oxyCODONE/ACETAMINOPHEN (*CRX) 5-325 MG TABLET 1 TABLET PO (09:15)
[2022-09-11] MEDS: diphenhydrAMINE HCl CAP 25 MG CAPSULE PO (09:15)
--- NOTE | 2022-09-11 09:20 | PC.NURSE ---
ALS transfer to [facility] ETA [id number] Trip # [id number]
[2022-09-11 10:14] LABS: Anion Gap 14 mmol/L (8-16); Blood Urea Nitrogen 44 mg/dL (9-20); Calcium 8.3 mg/dL (8.4-10.2); Carbon Dioxide 22 mmol/L (22-30); Chloride 98 mmol/L (98-107); Estimated CRCL calculation 60 ml/min; Estimated Glomerular Filt Rate 51; Glucose 372 mg/dL (65-110); Potassium 5.6 mmol/L (3.4-5.0); Sodium 134 mmol/L (137-145)
== END 2022-09-11 09:50 | disposition short-term general hospital (02) ==
PROVIDERS: Emergency Medicine; Emergency Provider Nurse Practitioner Family; PCP Physician Assistant
DX: I70.223 Atherosclerosis of native arteries of extremities with rest pain, bilateral legs (principal); T82.868A Thrombosis due to vascular prosthetic devices, implants and grafts, initial encounter; I70.8 Atherosclerosis of other arteries; Z20.822 Contact with and (suspected) exposure to COVID-19; I25.10 Atherosclerotic heart disease of native coronary artery without angina pectoris; J44.9 Chronic obstructive pulmonary disease, unspecified; E78.5 Hyperlipidemia, unspecified; I10 Essential (primary) hypertension; E11.51 Type 2 diabetes mellitus with diabetic peripheral angiopathy without gangrene; Z95.1 Presence of aortocoronary bypass graft; Z95.5 Presence of coronary angioplasty implant and graft; Z87.891 Personal history of nicotine dependence; Z85.528 Personal history of other malignant neoplasm of kidney; L40.9 Psoriasis, unspecified; Z79.4 Long term (current) use of insulin; Z79.84 Long term (current) use of oral hypoglycemic drugs
CPT/HCPCS: 36415; 73706; 80048; 80053; 83880; 85025; 85380; 85610; 85730; 96365; 96366; 96375; 96376; 99285; A9270; J1170; J1644; Q9967; U0003; U0005

== ENCOUNTER 2022-09-28 15:08 | Observation (INO) | payer MEDICARE, MEDICAID, SELFPAY ==
--- NOTE | ~2022-09-28 | US_ITS ---
EXAMINATION: US venous doppler LE RT DATE: 09/29/2022 08:11 INDICATION: Right lower limb edema. TECHNIQUE: Grayscale ultrasound images without and with compression and Doppler ultrasound images of the right lower extremity veins were obtained. COMPARISON: CT 09/28/2022 FINDINGS: The visualized portions of right common femoral vein, profunda (deep) femoral vein, femoral vein, pop liteal vein, peroneal veins, posterior tibial veins, and greater saphenous vein outflow are patent. T here is hematoma around right common femoral artery. There is a 5.6 x 1.2 x 3.9 cm Holloway's cyst in th e popliteal fossa. There is hematoma in the right calf deep to the skin inocente. The bypass graft is patent. IMPRESSION: 1. No deep venous thrombosis. 2. Hematoma again seen around right common femoral artery. Hematoma again seen deep to the right calf skin inocente. 3. Moderate-sized Holloway's cyst. Reviewed, dictated and finalized at location A. ATRIC NURSE ASSISTANT
--- NOTE | ~2022-09-28 | CT_ITS ---
EXAMINATION: CTA LE RT DATE: 09/28/2022 21:31 INDICATION: Recent vascular surgery, grafting, pain. TECHNIQUE: Computed tomographic angiography (CTA) of the abdominal, pelvis, and both lower extremitie s was performed with 150 mL Omnipaque-350 intravenous contrast. Automated exposure control and iterat london reconstruction technique were employed. The dose-length product was 1046.05 mGy-cm. Maximum inten sity projection 3D-reconstructions of the arteries were created by the technologist on a separate wor kstation. COMPARISON: 09/11/2022. FINDINGS: PELVIC VASCULATURE: Severe stenosis at the origin of the left internal iliac artery. The aortic bifurcation and right com mon iliac bifurcation were not included in the [id number]. Scattered moderate plaque present in th e pelvic arteries, no additional severe stenosis detected. RIGHT LOWER EXTREMITY VASCULATURE: Right femoral-popliteal graft with surrounding fluid likely representing normal postoperative change. The graft is patent. The old femoral artery graft appears to be thrombosed. There is moderate athero sclerotic calcification at the trifurcation and in the distal leg arteries. Atretic posterior tibial and peroneal arteries. Flow is not confidently identified in the majority of the anterior tibial brandee ry. Flow is present in the posterior tibial artery below the level of the ankle. ADDITIONAL FINDINGS: Partially filled urinary bladder with wall thickening, likely secondary to prostatomegaly right ingui nal lymphadenopathy. Right inguinal surgical skin inocente. IMPRESSION: 1. Recent right femoropopliteal graft placement, which is currently patent 2. Inflammation, lymphadenopathy, and fluid surround the graft. These changes may represent normal po stoperative changes. However, infection cannot be excluded, correlate clinically. Reviewed, dictated and finalized at location K. E ADMINISTRATION SUPERVISOR IMPRESSION: 1. Recent right femoropopliteal graft placement, which is currently patent 2. Inflammation, lymphadenopathy, and fluid surround the graft. These changes m ay represent normal postoperative changes. However, infection cannot be exclude d, correlate clinically.
[2022-09-28 15:21] VITALS: BP 137/54; PULSE 82; RESP 16; TEMP 36.5; O2SAT 94
--- NOTE | 2022-09-28 19:56 | ED.GENADULT ---
HPI - General Adult General Chief complaint: Recheck/Abnormal Lab/Rx <Carline Connors MD - Last Filed: 09/28/22 23:13> Stated complaint: wound recheck <Carline Connors MD - Last Filed: 09/28/22 23:13> Time Seen by Provider: 09/28/22 19:50 <Carline Connors MD - Last Filed: 09/28/22 23:13> Source: patient <Carline Connors MD - Last Filed: 09/28/22 23:13> Mode of arrival: ambulatory <Carline Connors MD - Last Filed: 09/28/22 23:13> Limitations: no limitations <Carline Connors MD - Last Filed: 09/28/22 23:13> History of Present Illness HPI narrative: The patient is a 62-year-old male with history of CAD, PVD with hx of multiple angioplasty and stent placement, coronary artery disease (on plavix), hypertension,? psoriasis, diabetes,presenting to the ER for evaluation of right leg swelling and concern for leaking fluid from right lower extremity. Patient states that his incision sites appear clean but are leaking clear fluid. Patient reports he has not been able to ambulate at home secondary to weakness and pain.Pt reports bruising up to his scrotum. He denies fever, chills, nausea or vomiting. He has been compliant with his medication and home health has been visiting the patient. Pt denies dyspnea or chest pain. <Carline Connors MD - Last Filed: 09/28/22 23:13> Related Data Home medications: Home Medications Medication Instructions Recorded Confirmed atorvastatin 80 mg tablet 40 mg PO DAILY 07/20/22 08/27/22 dapagliflozin 10 mg tablet 10 mg PO DAILY 07/20/22 08/27/22 (Farxiri) fluticasone fur. 100 mcg-umeclid 1 inh inhalation DAILY 07/20/22 08/27/22 62.5 mcg-vilant 25 mcg inhalat.powder (Trelegy Ellipta) gabapentin 300 mg capsule 600 mg PO TID 07/20/22 08/27/22 insulin aspart U-100 100 unit/mL 50 unit subcut TIDWM 07/20/22 08/27/22 subcutaneous solution (Novolog U-100 Insulin aspart) metformin 500 mg tablet,extended 500 mg PO DAILY 07/20/22 08/27/22 release 24 hr albuterol sulfate 2.5 mg/3 mL 2.5 mg inhalation Q4-6H PRN 07/21/22 08/27/22 (0.083 %) solution for nebulization Shortness Of Breath clobetasol 0.05 % topical cream 1 applic topical BID PRN PSORIASIS 07/21/22 08/27/22 clopidogrel 75 mg tablet 75 mg PO DAILY 07/21/22 08/31/22 insulin glargine 100 unit/mL 60 units subcut HS 07/21/22 08/27/22 subcutaneous solution (Lantus U-100 Insulin) omeprazole 40 mg capsule,delayed 40 mg PO DAILY 08/27/22 08/27/22 release furosemide 20 mg tablet 80 mg PO DAILY 09/29/22 hydroxyzine HCl 25 mg tablet mg BID 09/29/22 <Carline Connors MD - Last Filed: 09/28/22 23:13> Allergies/adverse reactions: Allergies Allergy/AdvReac Type Severity Reaction Status Date / Time No Known Allergies Allergy Verified 09/07/22 15:29 <Carline Connors MD - Last Filed: 09/28/22 23:13> Review of Systems Review of Systems: CONSTITUTIONAL: Denies fever, chills, or sweats. EYES: Denies visual changes, redness, or discharge. ENT: Denies rhinorrhea, congestion, sore throat, or otalgia. CARDIOVASCULAR: Denies chest pain, palpitations, or edema. RESPIRATORY: Denies cough or dyspnea. GASTROINTESTINAL: Denies abdominal pain, nausea, vomiting, or diarrhea. GENITOURINARY: Denies dysuria or hematuria. SKIN: Reports right lower extremity edema, swelling MUSCULOSKELETAL: Reports right leg pain, edema, bruising NEUROLOGIC: Denies headache, numbness, or weakness. <Carline Connors MD - Last Filed: 09/28/22 23:13> [facility] Past Medical History Medical History: Medical History COPD (chronic obstructive pulmonary disease) Coronary artery disease Diabetes type 2, uncontrolled Dyslipidemia Hepatitis C HTN (hypertension) with goal to be determined Peripheral arterial disease Renal cell carcinoma <Carline Connors MD - Last Filed: 09/28/22 23:13> Surgical History Surgical History: Surgical Histor
--- NOTE | 2022-09-28 20:15 | PC.NURSE ---
Pt reports bypass and graft to RLE last week at [facility] in [place] and d'c home Thanksgiving. Home health to pt's home today and told pt to come to ED for evaluation of draining surgical sites. Swelling noted to RLE with staple to RLE have small amount serous fluid coming from site. Site is not warm to touch. Right inguinal surgical site also has small amount serous fluid draining. What appears to be yeast also noted in right inguinal area.
[2022-09-28 21:00] LABS: Basophils Absolute Auto 0.1 K/mm3 (0.0-0.1); Basophils Percent Auto 0.9 % (0.2-1.2); Eosinophils Absolute Auto 0.5 K/mm3 (0-0.3); Hematocrit 37.8 % (42.0-52.0); Immature Granulocyte Absolute 0.06 K/mm3 (0.00-0.031); Immature Granulocyte Percent A 0.8 % (0-0.5); Lymphocytes Absolute Auto 1.41 K/mm3 (0.9-3.2); Lymphocytes Percent Auto 18.2 % (18.3-44.2); Mean Corpuscular HGB Conc 31.7 g/dl (32-36); Mean Corpuscular Hemoglobin 29.2 pg (26-34); Mean Platelet Volume 10.7 fl (7.4-10.4); Monocytes Absolute Auto 0.6 K/mm3 (0.1-0.6); Monocytes Percent Auto 7.5 % (2.6-8.5); Neutrophils Absolute Auto 5.1 K/mm3 (1.3-6.7); Neutrophils Percent Auto 65.6 % (45.5-73.1); Platelet Count Result 306 k/mm3 (150-375); Red Blood Count 4.11 M/mm3 (4.6-6.20); White Blood Count 7.7 K/mm3 (4.5-10.0)
[2022-09-28 21:13] LABS: Alanine Aminotransferase 28 U/L (6-50); Albumin Level 4.4 g/dL (3.5-5.1); Alkaline Phosphatase 100 U/L (38-126); Anion Gap 11 mmol/L (8-16); Aspartate Amino Transferase 30 U/L (17-59); Bilirubin,Total 0.8 mg/dL (0.2-1.3); Blood Urea Nitrogen 29 mg/dL (9-20); CRP 2.7 mg/dL (<1.0); Calcium 9.2 mg/dL (8.4-10.2); Carbon Dioxide 27 mmol/L (22-30); Chloride 103 mmol/L (98-107); Estimated CRCL calculation 69 ml/min; Estimated Glomerular Filt Rate 56; Glucose 271 mg/dL (65-110); Potassium 4.6 mmol/L (3.4-5.0); Sodium 141 mmol/L (137-145)
[2022-09-28 21:26] LABS: INR 1.1; Prothrombin Time 13.8 Seconds (11.1-14.7)
[2022-09-28 21:27] LABS: Partial Thromboplastin Time 32.1 SECONDS (22.3-36.8)
[2022-09-28 21:54] LABS: Erythrocyte Sedimentation Rate 59 mm/hr (0-20)
[2022-09-28 23:00] VITALS: BP 139/71; PULSE 102; RESP 14; O2SAT 100
[2022-09-29] VITALS (8 sets, daily range): BP systolic 98–138; BP diastolic 54–82; PULSE 73–91; RESP 14–18; TEMP 35.9–36.7; O2SAT 94–100
[2022-09-29 01:08] LABS: SARS-CoV-2 RNA PCR Negative
--- NOTE | 2022-09-29 03:39 | PC.NURSE ---
Assumed care of pt at this time.
[2022-09-29] MEDS: HYDROmorphone HCL INJ (*CRX) 1 MG/ML SYR 0.5 MG IV PUSH (07:43)
--- NOTE | 2022-09-29 09:48 | PC.NURSE ---
Patient states he took all of his home medications today. EDP Mario notified, no further interventions needed at this time.
[2022-09-29 10:30] LABS: Glucose Point of Care 307 mg/dl (65-105)
[2022-09-29 10:36] LABS: Influenza A QL RT-PCR Negative (Negative); Influenza B QL RT-PCR Negative (Negative); SARS-CoV-2 RNA PCR Negative
[2022-09-29] MEDS: INSULIN ASPART (*BKC) 100 UNITS/ML 50 UNITS SUB-Q (11:34)
[2022-09-29 15:54] LABS: Glucose Point of Care 166 mg/dl (65-105)
--- NOTE | 2022-09-29 18:35 | PC.NURSE ---
Addendum entered by OJ Hou 09/29/22 18:43: Breakfast was ordered for this patient, and after 1 1/2 hours, I called the food service driver department to check on it. The cafeteria said it would be up shortly. I called his dinner order(diabetic meal with chicken soup) in at 1650, and the meal was never delivered. Fur Examiner was notified. Faustina Blankenship/US Original Note: Brreakfast was ordered for this patient and after 1/12 hours, I called to check on it. They said it would be up. I called his dinner order (diabetic meal with chicken soup) at 650 and the meal was never delivered. Fur Examiner was notified. Faustina Blankenship/US
--- NOTE | 2022-09-29 19:59 | PM.IMHP ---
H&P: HPI History of Present Illness Date/Time: 09/29/22 19:59 Chief Complaint: Failure to thrive Narrative: this is a 62-year-old male with past medical history significant for peripheral arterial disease patient just recently underwent a right femoropopliteal bypass surgery discharge home however patient comes in today due to being unable to care for himself he went through 20 tabs of analgesic narcotic post up and states that has been in a lot of pain unable to bear weight on his right leg has been laying on his own waste. patient denies any fevers, rigors, chills, nausea, vomiting. Preliminary workup has been essentially nonrevealing. Patient is currently awaiting bed at hospital where he got his surgery for further evaluation and likely placement our rehabilitation or senior living center. Review of Systems Review of Systems: right lower extremity pain Constitutional: Constitutional: Denies chills, Denies fever(s), Denies malaise, Reports poor appetite and Reports weakness Eyes: Eyes: Denies change in vision ENT: Denies dysphagia, Denies vertigo, Denies dizziness and Denies odynophagia Cardiovascular: Cardiovascular: Denies chest pain, Denies lightheadedness, Denies palpitations and Denies dyspnea on exertion Gastrointestinal: Gastrointestinal: Denies abdominal pain, Denies dyspepsia, Denies heartburn, Denies diarrhea, Denies nausea and Denies vomiting Genitourinary: Genitourinary: Denies dysuria Musculoskeletal: Musculoskeletal: Reports other ( right leg pain) Integumentary/Breasts: Skin/Breast: Denies rash Neurologic: Denies vertigo, Denies dizziness, Denies focal weakness and Denies Sensory deficit (Neuro) Psychiatric: Psychiatric: Reports no additional psychiatric complaints and Reports as per HPI Endocrine: Endocrine: Denies cold intolerance, Denies flushing, Denies heat intolerance, Denies polyphagia, Denies polydipsia and Denies palpitations Hematologic/Lymphatic: Hematologic/Lymphatic: Reports no additional hematologic/lymphatic complaints and Reports as per HPI Allergic/Immunologic: Allergic/Immunologic: Reports no additional allergic/immunologic complaints and Reports as per HPI PMFSH Past Medical History Medical History (Updated 09/30/22 @ 21:31 by Nicole Whitman, KAROLINE) COPD (chronic obstructive pulmonary disease) Coronary artery disease Diabetes type 2, uncontrolled Dyslipidemia Hepatitis C HTN (hypertension) with goal to be determined Peripheral arterial disease Renal cell carcinoma Surgical History Surgical History (Updated 09/30/22 @ 01:10 by Daren Snyder MD) History of lumbosacral spine surgery Hx of CABG Status post peripheral artery angioplasty with insertion of stent Family History Family History Sibling Cerebrovascular accident Father Acute myocardial infarction Grandparent Congestive heart failure Other Unknown family medical history Social History Social History Smoking packs per day: 1 Smoking cigarettes per day: 20.0 Years smoked: 30 Smoking pack-years: 30.00 Smoking status: Former smoker Tobacco type: cigarettes Smoking end date: 06/01/22 Alcohol intake: never Substance use: never Substance use type: crack/cocaine Last use: 2016 Lack of Transportation: No Lack of Food: Never True Current Housing: I Have Housing Concerned About Future Housing: No Difficulty Paying Gas/Electric Bills: No Difficulty Paying for Meds: No Currently Unemployed: No Education: High School Diploma/GED Difficulty w/ Childcare or Family Care: No Spiritual care concerns: No Meds Home Medications and Allergies Home Medications Medication Instructions Recorded Confirmed Type amlodipine 10 mg tablet 10 mg PO DAILY 30 days #30 tabs 02/27/22 09/30/22 Rx aspirin 81 mg tablet,delayed 81 mg PO DAILY 30 days #30 tabs 02/27/22 1
--- NOTE | 2022-09-29 21:30 | PC.NURSE ---
Evy Scherer called and stated that he remains on a list for admission.
[2022-09-30] VITALS: BMI 34.2
--- NOTE | 2022-09-30 00:22 | ADMGEN ---
This patient, Flavio Vigil, was admitted to [facility] Surg Room 314-01. Patient/family oriented to hospital policies and general routines including ID bracelet, bed and alarms, visiting hours, pain management, procedures, bathroom and other care routines, personal items, smoking policy, room service/diet, and visiting hours. Information on how to activate the Rapid Response Team has been discussed. Patient/Family are encouraged to report perceived risks to care and to ask questions if they do not understand what they are told or what they should do.
[2022-09-30] MEDS: traMADol HCL (*CRX) 50 MG TABLET PO ×3 (02:33→16:32)
[2022-09-30 05:51] VITALS: BP 131/52; PULSE 76; RESP 14; TEMP 36.1; O2SAT 95
[2022-09-30] MEDS: LINACLOTIDE 145 MCG CAPSULE 290 MCG PO (06:44)
[2022-09-30 06:47] LABS: Anion Gap 12 mmol/L (8-16); Blood Urea Nitrogen 39 mg/dL (9-20); Calcium 8.4 mg/dL (8.4-10.2); Carbon Dioxide 19 mmol/L (22-30); Chloride 103 mmol/L (98-107); Estimated CRCL calculation 46 ml/min; Estimated Glomerular Filt Rate 41; Glucose 298 mg/dL (65-110); Potassium 4.6 mmol/L (3.4-5.0); Sodium 134 mmol/L (137-145)
[2022-09-30 06:52] LABS: Basophils Absolute Auto 0.1 K/mm3 (0.0-0.1); Basophils Percent Auto 1.2 % (0.2-1.2); Eosinophils Absolute Auto 0.5 K/mm3 (0-0.3); Eosinophils Percent Auto 7.3 % (0-4.4); Hematocrit 40.6 % (42.0-52.0); Hemoglobin 11.8 g/dL (14.0-18.0); Immature Granulocyte Absolute 0.04 K/mm3 (0.00-0.031); Immature Granulocyte Percent A 0.6 % (0-0.5); Lymphocytes Absolute Auto 1.09 K/mm3 (0.9-3.2); Mean Corpuscular HGB Conc 29.1 g/dl (32-36); Mean Corpuscular Volume 103.3 fl (80-100); Mean Platelet Volume 10.7 fl (7.4-10.4); Monocytes Absolute Auto 0.6 K/mm3 (0.1-0.6); Monocytes Percent Auto 8.7 % (2.6-8.5); Neutrophils Absolute Auto 4.2 K/mm3 (1.3-6.7); Neutrophils Percent Auto 65.2 % (45.5-73.1); Platelet Count Result 166 k/mm3 (150-375); Red Blood Count 3.93 M/mm3 (4.6-6.20); Red Cell Distribution Width 18.2 % (11.5-14.5); White Blood Count 6.4 K/mm3 (4.5-10.0)
[2022-09-30 07:31] LABS: Anisocytosis 1+ (NORMAL); Hypochromasia 1+ (NORMAL); Platelet Estimate Adequate (Adequate); Schistocytes None Seen (NORMAL)
[2022-09-30 08:38] LABS: Glucose Point of Care 333 mg/dl (65-105)
[2022-09-30 08:51] VITALS: PULSE 76
[2022-09-30] MEDS: INSULIN ASPART (*BKC) 100 UNITS/ML 55 UNITS SUB-Q ×2 (08:51→12:18)
[2022-09-30] MEDS: carvediloL 3.125 MG TABLET PO ×2 (08:51→21:52)
[2022-09-30] MEDS: amLODIPine BESYLATE 5 MG TABLET 10 MG PO (08:52)
[2022-09-30] MEDS: FUROSEMIDE 80 MG TABLET PO (08:52)
[2022-09-30] MEDS: lisinopriL 20 MG TABLET PO (08:52)
[2022-09-30] MEDS: CLOBETASOL PROPIONATE 0.05% CREAM 15 GM 1 APPLIC TOPICAL ×2 (08:52→16:33)
[2022-09-30] MEDS: GABAPENTIN 300 MG CAPSULE 600 MG PO ×3 (08:52→16:31)
[2022-09-30] MEDS: CLOPIDOGREL BISULFATE 75 MG TABLET PO (08:52)
[2022-09-30] MEDS: PANTOPRAZOLE 40 MG TABLET PO ×2 (08:52→16:33)
[2022-09-30] MEDS: ATORVASTATIN 40 MG TABLET PO (08:53)
[2022-09-30] MEDS: FLUTICASONE PROPIONATE 0.05% NA SPR 16 GM BTL (*BKC) 1 SPRAY NASAL (08:53)
[2022-09-30] MEDS: ASPIRIN 81 MG ENTERIC TABLET PO (08:53)
[2022-09-30] MEDS: FLUTICASONE/UMECLIDIN/VILANTER 100-62.5-25 MCG ELLIPTA 1 PUFF INHALATION (11:36)
[2022-09-30 12:01] LABS: Glucose Point of Care 90 mg/dl (65-105)
[2022-09-30] MEDS: HYDROmorphone HCL INJ (*CRX) 1 MG/ML SYR IV PUSH ×2 (12:23→18:23)
--- NOTE | 2022-09-30 13:24 | PM.IMPN ---
Progress Note: A&P Assessment and Plan (1) Edema of right lower extremity: Code(s): R60.0 - Localized edema Status: Acute Assessment and Plan: Increase RLE edema, ecchymosis, discharge, mild erythema at incision sites, and pain to RLE Inflammation, lymphadenopathy, and fluid surrounding graft noted on CTA RLE that may be postop changes or possible acute infection. CRP2.7, ESR 59- elevated Continue furosemide 80 mg PO for now, consider changing to IV if no significant improvement. Gentle kassandra wrap and elevate RLE on 2 pillows. Continue empiric antibiotics - Rocephin 1 gram Q24 hours and Vancomycin pharmacy to dose. Patient has been accepted by Vascular surgery at [facility] and transfer is pending an open bed. He has a history of MRSA colonization. Venous duplex without evidence of DVT (2) S/P femoral-popliteal bypass surgery: Code(s): Z95.828 - Presence of other vascular implants and grafts Status: Acute Assessment and Plan: Chronic PAD s/p Fem-pop right extremity before . continue statin, Aspirin and plavix Control postop glucose for improved wound healing. Cleanse surgical sites with normal saline and apply dry gauze to keep clean and dry. (3) Post-operative pain: Code(s): G89.18 - Other acute postprocedural pain Status: Acute Assessment and Plan: as above. Control for edema. and PRN analgesics. (4) SINDHU (obstructive sleep apnea): Code(s): G47.33 - Obstructive sleep apnea (adult) (pediatric) Status: Chronic Assessment and Plan: Chronic, CPAP at HS at home settings. (5) Diabetes type 2, uncontrolled: Qualifiers: Glycemic state: with hypoglycemia Coma presence: without coma Qualified Code(s): E11.649 - Type 2 diabetes mellitus with hypoglycemia without coma Status: Chronic Assessment and Plan: Chronic. Insulin dependent. Glucose >300 at lunch and <40 prior to supper Adjust lantus 25 units BID (takes 60 units at HS at home), aspart 40 units TID with meals (takes 55 units TID at home) with moderate meal correction scale. Hold metformin and farxiga while inpatient. Hypoglycemia protocol. Check A1c. (6) Psoriasis: Code(s): L40.9 - Psoriasis, unspecified Status: Chronic Assessment and Plan: Chronic, with diffuse pruritic plaques. He previously was taking humira. With possible bypass graft infection will hold systemic immunosuppressants. Trial Eucerin and clobetasol ointment Loratadine 10 mg at HS and PRN benadryl. (7) HTN (hypertension) with goal to be determined: Code(s): I10 - Essential (primary) hypertension Status: Chronic Assessment and Plan: Chronic, stable. continue amlodipine, coreg, furosemide, and lisinopril at home doses as BP allows. (8) COPD (chronic obstructive pulmonary disease): Code(s): J44.9 - Chronic obstructive pulmonary disease, unspecified Status: Chronic Assessment and Plan: Chronic, not in acute exacerbation. Continue albuterol MDI Plan CODE STATUS: FULL CODE Disposition: Estimated LOS 2-3 days, he may need SNF rehab. PT/OT consulted. Time Spent With Patient Time with patient: 25 - 35 minutes Subjective Date/time seen: 09/30/22 13:24 He thinks the swelling to his right leg is improved. He still has some thin discharge from the lower calf incision. He states he was prescribed a diuretic but does not know when he last received it. He has had a nurse come to his home to monitor wound healing. Review of Systems Review of Systems: All systems reviewed & are unremarkable except as noted in HPI and below Exam Narrative: General:?No acute distress. Chronically-ill appearing older adult male sitting up in bed. HEENT:??Normocephalic. Sclera non-icteric.?EOM intact. Pupils equal and round. Mucous membranes pink. Neck:??No JVD. Obese. Trachea midline.
[2022-09-30 14:00] VITALS: BP 132/52; PULSE 71; RESP 15; TEMP 36.9; O2SAT 97
[2022-09-30] MEDS: EUCERIN CREAM 120 GM JAR 1 APPLIC TOPICAL (16:32)
[2022-09-30 17:01] LABS: Glucose Point of Care 40 mg/dl (65-105)
[2022-09-30 17:01] LABS: Glucose Point of Care 36 mg/dl (65-105)
[2022-09-30 17:02] LABS: Glucose Point of Care 100 mg/dl (65-105)
[2022-09-30 21:12] LABS: Glucose Point of Care 177 mg/dl (65-105)
[2022-09-30 21:52] VITALS: PULSE 72
[2022-09-30] MEDS: SENNA/DOCUSATE SODIUM TABLET 1 TAB PO (21:53)
[2022-09-30] MEDS: TAMSULOSIN HCL 0.4 MG CAPSULE 0.8 MG PO (21:55)
[2022-09-30 22:00] VITALS: BP 138/67; PULSE 71; RESP 14; TEMP 35.5; O2SAT 95
[2022-09-30] MEDS: LORATADINE 10 MG TABLET PO (22:04)
[2022-10-01 06:00] VITALS: BP 130/69; PULSE 75; RESP 14; TEMP 36.1; O2SAT 94
[2022-10-01] MEDS: HYDROmorphone HCL (*CRX) 2 MG TABLET PO (06:01)
[2022-10-01] MEDS: LINACLOTIDE 145 MCG CAPSULE 290 MCG PO (06:01)
[2022-10-01] MEDS: ACETAMINOPHEN 500 MG TABLET 1000 MG PO ×2 (06:02→12:02)
[2022-10-01 06:50] LABS: Basophils Percent Auto 0.6 % (0.2-1.2); Eosinophils Absolute Auto 0.6 K/mm3 (0-0.3); Eosinophils Percent Auto 7.7 % (0-4.4); Hemoglobin 11.4 g/dL (14.0-18.0); Immature Granulocyte Absolute 0.06 K/mm3 (0.00-0.031); Immature Granulocyte Percent A 0.8 % (0-0.5); Lymphocytes Absolute Auto 1.12 K/mm3 (0.9-3.2); Lymphocytes Percent Auto 15.8 % (18.3-44.2); Mean Corpuscular HGB Conc 31.7 g/dl (32-36); Mean Corpuscular Hemoglobin 29.5 pg (26-34); Mean Platelet Volume 10.6 fl (7.4-10.4); Monocytes Absolute Auto 0.6 K/mm3 (0.1-0.6); Monocytes Percent Auto 8.3 % (2.6-8.5); Neutrophils Absolute Auto 4.7 K/mm3 (1.3-6.7); Neutrophils Percent Auto 66.8 % (45.5-73.1); Platelet Count Result 278 k/mm3 (150-375); Red Blood Count 3.87 M/mm3 (4.6-6.20); Red Cell Distribution Width 17.7 % (11.5-14.5); White Blood Count 7.1 K/mm3 (4.5-10.0)
[2022-10-01 07:00] LABS: Hemoglobin A1C 8.1 % (<5.7)
[2022-10-01 07:06] LABS: Anion Gap 9 mmol/L (8-16); Blood Urea Nitrogen 41 mg/dL (9-20); Calcium 8.4 mg/dL (8.4-10.2); Carbon Dioxide 26 mmol/L (22-30); Chloride 99 mmol/L (98-107); Estimated CRCL calculation 46 ml/min; Estimated Glomerular Filt Rate 41; Glucose 346 mg/dL (65-110); Magnesium 1.9 mg/dL (1.6-2.3); Potassium 4.9 mmol/L (3.4-5.0); Sodium 134 mmol/L (137-145)
[2022-10-01 07:53] LABS: Glucose Point of Care 361 mg/dl (65-105)
[2022-10-01] MEDS: ASPIRIN 81 MG ENTERIC TABLET PO (08:43)
[2022-10-01 08:44] VITALS: PULSE 70
[2022-10-01] MEDS: ATORVASTATIN 40 MG TABLET PO (08:44)
[2022-10-01] MEDS: lisinopriL 20 MG TABLET PO (08:44)
[2022-10-01] MEDS: FUROSEMIDE 80 MG TABLET PO (08:44)
[2022-10-01] MEDS: GABAPENTIN 300 MG CAPSULE 600 MG PO ×3 (08:44→17:05)
[2022-10-01] MEDS: CLOPIDOGREL BISULFATE 75 MG TABLET PO (08:44)
[2022-10-01] MEDS: FLUTICASONE PROPIONATE 0.05% NA SPR 16 GM BTL (*BKC) 1 SPRAY NASAL (08:44)
[2022-10-01] MEDS: PANTOPRAZOLE 40 MG TABLET PO ×2 (08:44→17:05)
[2022-10-01] MEDS: carvediloL 3.125 MG TABLET PO ×2 (08:44→21:08)
[2022-10-01] MEDS: amLODIPine BESYLATE 5 MG TABLET 10 MG PO (08:44)
[2022-10-01] MEDS: HYDROmorphone HCL INJ (*CRX) 1 MG/ML SYR IV PUSH ×3 (08:45→21:23)
[2022-10-01] MEDS: EUCERIN CREAM 120 GM JAR 1 APPLIC TOPICAL ×2 (08:45→17:05)
[2022-10-01] MEDS: INSULIN GLARGINE (*BKC) 100 UNITS/ML 25 UNITS SUB-Q ×2 (08:46→20:58)
[2022-10-01] MEDS: INSULIN ASPART (*BKC) 100 UNITS/ML 40 UNITS SUB-Q ×2 (08:46→12:02)
[2022-10-01] MEDS: CLOBETASOL PROPIONATE 0.05% CREAM 15 GM 1 APPLIC TOPICAL (08:46)
[2022-10-01] MEDS: INSULIN ASPART (*BKC) 100 UNITS/ML SUB-Q ×2 (08:47→12:03)
[2022-10-01] MEDS: FLUTICASONE/UMECLIDIN/VILANTER 100-62.5-25 MCG ELLIPTA 1 PUFF INHALATION (09:06)
[2022-10-01 11:20] LABS: Glucose Point of Care 235 mg/dl (65-105)
[2022-10-01] MEDS: diphenhydrAMINE HCl CAP 25 MG CAPSULE PO (12:02)
[2022-10-01 13:47] VITALS: BP 110/68; PULSE 78; RESP 20; TEMP 35.8; O2SAT 92
[2022-10-01 16:57] LABS: Glucose Point of Care 82 mg/dl (65-105)
[2022-10-01] MEDS: FUROSEMIDE INJ 40 MG/4 ML VIAL IV PUSH (17:05)
--- NOTE | 2022-10-01 17:39 | P.PNIM_ITS ---
Progress Note: A&P Assessment and Plan (1) Edema of right lower extremity: Code(s): R60.0 - Localized edema Status: Acute Assessment and Plan: Increase RLE edema, ecchymosis, discharge, mild erythema at incision sites, and pain to RLE * Inflammation, lymphadenopathy, and fluid surrounding graft noted on CTA RLE that may be postop changes or possible acute infection. * CRP 2.7, ESR 59 and elevated. Trend CRP and ESR. * 10/01 change furosemide to 40 mg IV BID. * Gentle kassandra wrap and elevate RLE on 2 pillows. * Continue empiric antibiotics - Rocephin 1 gram Q24 hours and Vancomycin pharmacy to dose. * Patient has been accepted by Vascular surgery at [facility] and transfer is pending an open bed. He has a history of MRSA colonization. * Venous duplex without evidence of DVT * Discussed CT results and concerns of fluid retention and possible abscess with radiologist. Suggested MRI evaluation and per Radiology this is unlikely to r/o infection or infected hematoma more than CTA RLE. Infected hematoma cannot be ruled out. Patient is still awaiting transfer bed for Vascular evaluation. (2) Post-operative pain: Code(s): G89.18 - Other acute postprocedural pain Status: Acute Assessment and Plan: Pain appears to be secondary to edema, hematomas. Improving per patient. * PRN analgesics. * continue to monitor (3) Peripheral arterial disease: Code(s): I73.9 - Peripheral vascular disease, unspecified Status: Chronic Assessment and Plan: Chronic PAD s/p Fem-pop right extremity before . * continue statin, Aspirin and plavix * Control postop glucose for improved wound healing. * Cleanse surgical sites with normal saline and apply dry gauze to keep clean and dry. (4) Diabetes type 2, uncontrolled: Qualifiers: Glycemic state: with hypoglycemia Coma presence: without coma Qualified Code(s): E11.649 - Type 2 diabetes mellitus with hypoglycemia without coma Status: Chronic Assessment and Plan: Chronic. Insulin dependent. * 09/30/22 hypoglycemia episode, glucose <40 and basal-bolus insulin adjusted. * Adjust lantus 25 units BID (takes 60 units at HS at home), aspart 40 units TID with meals (takes 55 units TID at home) with moderate meal correction scale. * Hold metformin and farxiga while inpatient. * Hypoglycemia protocol. * A1c 8.1%, improved from January 2022 (5) Psoriasis: Code(s): L40.9 - Psoriasis, unspecified Status: Chronic Assessment and Plan: Chronic, with diffuse pruritic plaques. He previously was taking humira. * With possible bypass graft infection will hold systemic immunosuppressants. * Trial Eucerin and clobetasol ointment - no siginicant improvement trial tacrolimus 0.1% ointment BID * Loratadine 10 mg at HS and PRN benadryl. (6) HTN (hypertension) with goal to be determined: Code(s): I10 - Essential (primary) hypertension Status: Chronic Assessment and Plan: Chronic, stable. continue amlodipine, coreg, furosemide, and lisinopril at home doses as BP allows. (7) COPD (chronic obstructive pulmonary disease): Qualifiers: COPD type: unspecified COPD Qualified Code(s): J44.9 - Chronic obstructive pulmonary disease, unspecified Code(s): J44.9 - Chronic obstructive pulmonary disease, unspecified Status: Chronic Assessment and Plan: Chronic, not in acute exacerbation. * Continue albuterol MDI (8) SINDHU (obstructive sleep apnea): Code(s): G47.33 - Obstructive sleep apnea
--- NOTE | 2022-10-01 17:39 | PM.IMPN ---
Progress Note: A&P Assessment and Plan (1) Edema of right lower extremity: Code(s): R60.0 - Localized edema Status: Acute Assessment and Plan: Increase RLE edema, ecchymosis, discharge, mild erythema at incision sites, and pain to RLE Inflammation, lymphadenopathy, and fluid surrounding graft noted on CTA RLE that may be postop changes or possible acute infection. CRP 2.7, ESR 59 and elevated. Trend CRP and ESR. 10/01 change furosemide to 40 mg IV BID. Gentle kassandra wrap and elevate RLE on 2 pillows. Continue empiric antibiotics - Rocephin 1 gram Q24 hours and Vancomycin pharmacy to dose. Patient has been accepted by Vascular surgery at [facility] and transfer is pending an open bed. He has a history of MRSA colonization. Venous duplex without evidence of DVT Discussed CT results and concerns of fluid retention and possible abscess with radiologist. Suggested MRI evaluation and per Radiology this is unlikely to r/o infection or infected hematoma more than CTA RLE. Infected hematoma cannot be ruled out. Patient is still awaiting transfer bed for Vascular evaluation. (2) Post-operative pain: Code(s): G89.18 - Other acute postprocedural pain Status: Acute Assessment and Plan: Pain appears to be secondary to edema, hematomas. Improving per patient. PRN analgesics. continue to monitor (3) Peripheral arterial disease: Code(s): I73.9 - Peripheral vascular disease, unspecified Status: Chronic Assessment and Plan: Chronic PAD s/p Fem-pop right extremity before . continue statin, Aspirin and plavix Control postop glucose for improved wound healing. Cleanse surgical sites with normal saline and apply dry gauze to keep clean and dry. (4) Diabetes type 2, uncontrolled: Qualifiers: Glycemic state: with hypoglycemia Coma presence: without coma Qualified Code(s): E11.649 - Type 2 diabetes mellitus with hypoglycemia without coma Status: Chronic Assessment and Plan: Chronic. Insulin dependent. 09/30/22 hypoglycemia episode, glucose <40 and basal-bolus insulin adjusted. Adjust lantus 25 units BID (takes 60 units at HS at home), aspart 40 units TID with meals (takes 55 units TID at home) with moderate meal correction scale. Hold metformin and farxiga while inpatient. Hypoglycemia protocol. A1c 8.1%, improved from January 2022 (5) Psoriasis: Code(s): L40.9 - Psoriasis, unspecified Status: Chronic Assessment and Plan: Chronic, with diffuse pruritic plaques. He previously was taking humira. With possible bypass graft infection will hold systemic immunosuppressants. Trial Eucerin and clobetasol ointment - no siginicant improvement trial tacrolimus 0.1% ointment BID Loratadine 10 mg at HS and PRN benadryl. (6) HTN (hypertension) with goal to be determined: Code(s): I10 - Essential (primary) hypertension Status: Chronic Assessment and Plan: Chronic, stable. continue amlodipine, coreg, furosemide, and lisinopril at home doses as BP allows. (7) COPD (chronic obstructive pulmonary disease): Qualifiers: COPD type: unspecified COPD Qualified Code(s): J44.9 - Chronic obstructive pulmonary disease, unspecified Code(s): J44.9 - Chronic obstructive pulmonary disease, unspecified Status: Chronic Assessment and Plan: Chronic, not in acute exacerbation. Continue albuterol MDI (8) SINDHU (obstructive sleep apnea): Code(s): G47.33 - Obstructive sleep apnea (adult) (pediatric) Status: Chronic Assessment and Plan: Chronic, continue CPAP at nighttime (9) Failure to thrive in adult: Code(s): R62.7 - Adult failure to thrive Status: Acute Assessment and Plan: patient will likely need placement. PT/OT evaluation Care coordination consulted. Plan CODE STATUS: FULL CODE Disposition: he may need SNF torey
[2022-10-01 21:08] VITALS: PULSE 76
[2022-10-01] MEDS: SENNA/DOCUSATE SODIUM TABLET 1 TAB PO (21:08)
[2022-10-01] MEDS: TAMSULOSIN HCL 0.4 MG CAPSULE 0.8 MG PO (21:09)
[2022-10-01] MEDS: TACROLIMUS 0.1% 30 GM OINTMENT 1 APPLIC TOPICAL (21:12)
[2022-10-01] MEDS: LORATADINE 10 MG TABLET PO (21:12)
[2022-10-01 21:35] LABS: Glucose Point of Care 202 mg/dl (65-105)
[2022-10-01 22:00] VITALS: BP 109/49; PULSE 73; RESP 16; TEMP 36.2; O2SAT 93
[2022-10-02] VITALS (9 sets, daily range): BP systolic 108–120; BP diastolic 53–59; PULSE 75–86; RESP 16–20; TEMP 35.5–36.3; O2SAT 94–97
[2022-10-02] MEDS: HYDROmorphone HCL (*CRX) 2 MG TABLET PO (04:31)
[2022-10-02] MEDS: LINACLOTIDE 145 MCG CAPSULE 290 MCG PO (06:17)
[2022-10-02 07:17] LABS: Anion Gap 7 mmol/L (8-16); Blood Urea Nitrogen 48 mg/dL (9-20); CRP 2.4 mg/dL (<1.0); Calcium 8.3 mg/dL (8.4-10.2); Carbon Dioxide 28 mmol/L (22-30); Chloride 97 mmol/L (98-107); Estimated CRCL calculation 41 ml/min; Estimated Glomerular Filt Rate 36; Glucose 265 mg/dL (65-110); Potassium 5.3 mmol/L (3.4-5.0); Sodium 132 mmol/L (137-145)
[2022-10-02 07:58] LABS: Basophils Percent Auto 0.4 % (0.2-1.2); Eosinophils Absolute Auto 0.5 K/mm3 (0-0.3); Eosinophils Percent Auto 4.3 % (0-4.4); Hematocrit 34.8 % (42.0-52.0); Immature Granulocyte Absolute 0.05 K/mm3 (0.00-0.031); Immature Granulocyte Percent A 0.5 % (0-0.5); Lymphocytes Absolute Auto 0.89 K/mm3 (0.9-3.2); Lymphocytes Percent Auto 8.1 % (18.3-44.2); Mean Corpuscular HGB Conc 31.6 g/dl (32-36); Mean Corpuscular Hemoglobin 29.4 pg (26-34); Mean Platelet Volume 10.8 fl (7.4-10.4); Monocytes Absolute Auto 0.8 K/mm3 (0.1-0.6); Monocytes Percent Auto 7.1 % (2.6-8.5); Neutrophils Absolute Auto 8.8 K/mm3 (1.3-6.7); Neutrophils Percent Auto 79.6 % (45.5-73.1); Platelet Count Result 297 k/mm3 (150-375); Red Blood Count 3.74 M/mm3 (4.6-6.20); Red Cell Distribution Width 17.9 % (11.5-14.5)
[2022-10-02 07:59] LABS: Glucose Point of Care 305 mg/dl (65-105)
[2022-10-02] MEDS: ATORVASTATIN 40 MG TABLET PO (08:37)
[2022-10-02 08:38] LABS: Erythrocyte Sedimentation Rate 17 mm/hr (0-20)
[2022-10-02] MEDS: FLUTICASONE PROPIONATE 0.05% NA SPR 16 GM BTL (*BKC) 1 SPRAY NASAL (08:38)
[2022-10-02] MEDS: amLODIPine BESYLATE 5 MG TABLET 10 MG PO (08:38)
[2022-10-02] MEDS: ASPIRIN 81 MG ENTERIC TABLET PO (08:38)
[2022-10-02] MEDS: GABAPENTIN 300 MG CAPSULE 600 MG PO ×3 (08:38→17:09)
[2022-10-02] MEDS: lisinopriL 20 MG TABLET PO (08:38)
[2022-10-02] MEDS: carvediloL 3.125 MG TABLET PO ×2 (08:38→20:15)
[2022-10-02] MEDS: FUROSEMIDE INJ 40 MG/4 ML VIAL IV PUSH ×2 (08:38→17:09)
[2022-10-02] MEDS: CLOPIDOGREL BISULFATE 75 MG TABLET PO (08:38)
[2022-10-02] MEDS: EUCERIN CREAM 120 GM JAR 1 APPLIC TOPICAL ×2 (08:39→17:09)
[2022-10-02] MEDS: TACROLIMUS 0.1% 30 GM OINTMENT 1 APPLIC TOPICAL ×2 (08:39→20:14)
[2022-10-02] MEDS: PANTOPRAZOLE 40 MG TABLET PO ×2 (08:39→17:09)
[2022-10-02] MEDS: INSULIN GLARGINE (*BKC) 100 UNITS/ML 25 UNITS SUB-Q (08:39)
[2022-10-02] MEDS: NEOMYCIN/POLYMYXIN/BACITRACIN OINTMENT 15 GM TUBE 1 APPLIC TOPICAL (08:39)
[2022-10-02] MEDS: INSULIN ASPART (*BKC) 100 UNITS/ML SUB-Q ×2 (08:40→12:26)
[2022-10-02] MEDS: INSULIN ASPART (*BKC) 100 UNITS/ML 40 UNITS SUB-Q (08:40)
[2022-10-02] MEDS: FLUTICASONE/UMECLIDIN/VILANTER 100-62.5-25 MCG ELLIPTA 1 PUFF INHALATION (09:08)
[2022-10-02 11:47] LABS: Glucose Point of Care 217 mg/dl (65-105)
[2022-10-02] MEDS: INSULIN ASPART (*BKC) 100 UNITS/ML 50 UNITS SUB-Q (12:26)
[2022-10-02] MEDS: HYDROcodone/acetaminophen (*CRX) 5-325 MG TABLET 1 TAB PO ×2 (12:26→20:19)
--- NOTE | 2022-10-02 14:47 | P.PNIM_ITS ---
Progress Note: A&P Assessment and Plan (1) Edema of right lower extremity: Code(s): R60.0 - Localized edema Status: Acute Assessment and Plan: Increase RLE edema, ecchymosis, discharge, mild erythema at incision sites, and pain to RLE * Inflammation, lymphadenopathy, and fluid surrounding graft noted on CTA RLE that may be postop changes or possible acute infection. * CRP 2.7, ESR 59 and elevated. Trend CRP and ESR- 12/2 downtrending. * 10/01 change furosemide to 40 mg IV BID. * Gentle kassandra wrap and elevate RLE on 2 pillows. * Continue empiric antibiotics - Rocephin 1 gram Q24 hours and Vancomycin pharmacy to dose- WBC 11, afebrile. Improved appearance. Transition to oral doxycycline for MRSA coverage and oral Augmentin for strep and enterococcus coverage and continue for 8-12 days for 10-14 day antibiotic course. * Patient has been accepted by Vascular surgery at [facility] and transfer is pending an open bed. He has a history of MRSA colonization. * Venous duplex without evidence of DVT * Discussed CT results and concerns of fluid retention and possible abscess with radiologist. Suggested MRI evaluation and per Radiology this is unlikely to r/o infection or infected hematoma more than CTA RLE. Infected hematoma cannot be ruled out. Patient is still awaiting transfer bed for Vascular evaluation. * Improved edema with IV diuretic. Continue IV today and then transition to oral in the morning. (2) Post-operative pain: Code(s): G89.18 - Other acute postprocedural pain Status: Acute Assessment and Plan: Pain appears to be secondary to edema, hematomas. Improving per patient. * PRN analgesics. * continue to monitor * Improved. Counseled to take oral analgesics and not IV. (3) Peripheral arterial disease: Code(s): I73.9 - Peripheral vascular disease, unspecified Status: Chronic Assessment and Plan: Chronic PAD s/p Fem-pop right extremity before . * continue statin, Aspirin and plavix * Control postop glucose for improved wound healing. * Cleanse surgical sites with normal saline and apply dry gauze to keep clean and dry. (4) Diabetes type 2, uncontrolled: Qualifiers: Coma presence: without coma Glycemic state: with hypoglycemia Qual ified Code(s): E11.649 - Type 2 diabetes mellitus with hypoglycemia without coma Status: Chronic Assessment and Plan: Chronic. Insulin dependent. * 09/30/22 hypoglycemia episode, glucose <40 and basal-bolus insulin adjusted. * Adjusted lantus 25 units BID (takes 60 units at HS at home), aspart 40 units TID with meals (takes 55 units TID at home) with moderate meal correction scale following hypoglycemic episode. * Hold metformin and farxiga while inpatient. * Hypoglycemia protocol. * A1c 8.1%, improved from January 2022 * 10/02 - glucose 305 to 98. Increase lantus 30 units BID, aspart 50 units with meals plus sliding scale. (5) Psoriasis: Code(s): L40.9 - Psoriasis, unspecified Status: Chronic Assessment and Plan: Chronic, with diffuse pruritic plaques. He previously was taking humira. * With possible bypass graft infection will hold systemic immunosuppressants. * Trial Eucerin and clobetasol ointment - no significant improvement trial tacrolimus 0.1% ointment BID * Loratadine 10 mg at HS and PRN benadryl. * Continue tacrolimus ointement. (6) HTN (hypertension) with goal to be determined: Code(s): I10 - Essential (primary) hypertension Status: Chronic Assessment and Plan: Chronic, stable. continue amlodi
--- NOTE | 2022-10-02 14:47 | PM.IMPN ---
Progress Note: A&P Assessment and Plan (1) Edema of right lower extremity: Code(s): R60.0 - Localized edema Status: Acute Assessment and Plan: Increase RLE edema, ecchymosis, discharge, mild erythema at incision sites, and pain to RLE Inflammation, lymphadenopathy, and fluid surrounding graft noted on CTA RLE that may be postop changes or possible acute infection. CRP 2.7, ESR 59 and elevated. Trend CRP and ESR- 12/2 downtrending. 10/01 change furosemide to 40 mg IV BID. Gentle kassandra wrap and elevate RLE on 2 pillows. Continue empiric antibiotics - Rocephin 1 gram Q24 hours and Vancomycin pharmacy to dose- WBC 11, afebrile. Improved appearance. Transition to oral doxycycline for MRSA coverage and oral Augmentin for strep and enterococcus coverage and continue for 8-12 days for 10-14 day antibiotic course. Patient has been accepted by Vascular surgery at [facility] and transfer is pending an open bed. He has a history of MRSA colonization. Venous duplex without evidence of DVT Discussed CT results and concerns of fluid retention and possible abscess with radiologist. Suggested MRI evaluation and per Radiology this is unlikely to r/o infection or infected hematoma more than CTA RLE. Infected hematoma cannot be ruled out. Patient is still awaiting transfer bed for Vascular evaluation. Improved edema with IV diuretic. Continue IV today and then transition to oral in the morning. (2) Post-operative pain: Code(s): G89.18 - Other acute postprocedural pain Status: Acute Assessment and Plan: Pain appears to be secondary to edema, hematomas. Improving per patient. PRN analgesics. continue to monitor Improved. Counseled to take oral analgesics and not IV. (3) Peripheral arterial disease: Code(s): I73.9 - Peripheral vascular disease, unspecified Status: Chronic Assessment and Plan: Chronic PAD s/p Fem-pop right extremity before . continue statin, Aspirin and plavix Control postop glucose for improved wound healing. Cleanse surgical sites with normal saline and apply dry gauze to keep clean and dry. (4) Diabetes type 2, uncontrolled: Qualifiers: Coma presence: without coma Glycemic state: with hypoglycemia Qualified Code(s): E11.649 - Type 2 diabetes mellitus with hypoglycemia without coma Status: Chronic Assessment and Plan: Chronic. Insulin dependent. 09/30/22 hypoglycemia episode, glucose <40 and basal-bolus insulin adjusted. Adjusted lantus 25 units BID (takes 60 units at HS at home), aspart 40 units TID with meals (takes 55 units TID at home) with moderate meal correction scale following hypoglycemic episode. Hold metformin and farxiga while inpatient. Hypoglycemia protocol. A1c 8.1%, improved from January 202210/02 - glucose 305 to 98. Increase lantus 30 units BID, aspart 50 units with meals plus sliding scale. (5) Psoriasis: Code(s): L40.9 - Psoriasis, unspecified Status: Chronic Assessment and Plan: Chronic, with diffuse pruritic plaques. He previously was taking humira. With possible bypass graft infection will hold systemic immunosuppressants. Trial Eucerin and clobetasol ointment - no significant improvement trial tacrolimus 0.1% ointment BID Loratadine 10 mg at HS and PRN benadryl. Continue tacrolimus ointement. (6) HTN (hypertension) with goal to be determined: Code(s): I10 - Essential (primary) hypertension Status: Chronic Assessment and Plan: Chronic, stable. continue amlodipine, coreg, furosemide, and lisinopril at home doses as BP allows. (7) COPD (chronic obstructive pulmonary disease): Qualifiers: COPD type: unspecified COPD Qualified Code(s): J44.9 - Chronic obstructive pulmonary disease, unspecified Code(s): J44.9 - Chronic obstructive pulmonary disease, unspecified Status: Chronic Assessment and Plan
[2022-10-02] MEDS: diphenhydrAMINE HCl CAP 25 MG CAPSULE PO (15:00)
[2022-10-02] MEDS: HYDROmorphone HCL INJ (*CRX) 1 MG/ML SYR IV PUSH (15:00)
[2022-10-02 16:34] LABS: Glucose Point of Care 98 mg/dl (65-105)
[2022-10-02 20:01] LABS: Glucose Point of Care 275 mg/dl (65-105)
[2022-10-02] MEDS: AMOXICILLIN/CLAVULANATE K 875-125 MG TAB 1 TABLET PO (20:14)
[2022-10-02] MEDS: DOXYCYCLINE HYCLATE 100 MG TABLET PO (20:14)
[2022-10-02] MEDS: TAMSULOSIN HCL 0.4 MG CAPSULE 0.8 MG PO (20:14)
[2022-10-02] MEDS: LORATADINE 10 MG TABLET PO (20:14)
[2022-10-02] MEDS: INSULIN GLARGINE (*BKC) 100 UNITS/ML 30 UNITS SUB-Q (20:16)
--- NOTE | 2022-10-03 05:13 | PC.NURSE ---
Ale [phone] [facility] transfer centered stated bed at [facility], will need recent set of vital signs. Will call back.
--- NOTE | 2022-10-03 05:25 | PC.NURSE ---
called back Ale at [facility] transfer center
[2022-10-03] MEDS: LINACLOTIDE 145 MCG CAPSULE 290 MCG PO (05:35)
[2022-10-03] MEDS: HYDROcodone/acetaminophen (*CRX) 5-325 MG TABLET 1 TAB PO ×2 (05:36→12:40)
--- NOTE | 2022-10-03 05:36 | PC.NURSE ---
Report given to [facility], , pt to transport via ems. vital signs stable 96.9, 75,97% ra, 119/51, 18, pt will be admitted by MD Ramires to room [address].
--- NOTE | 2022-10-03 05:48 | PC.NURSE ---
awaiting ems for transport to [place] [id number]
[2022-10-03 05:51] VITALS: BP 119/51; PULSE 75; RESP 18; TEMP 36.1; O2SAT 97
--- NOTE | 2022-10-03 06:04 | PC.NURSE ---
Pt refusing to transfer to [facility], this nurse and charge nurse Susy talked with pt about transferring for vascular care r/t post op femoral popliteal bypass graft performed at [facility], pt stated he doesn't want to transfer to [facility], and states will f/u with vascular surgery on 10/06/22 as scheduled.
--- NOTE | 2022-10-03 06:05 | PC.NURSE ---
Patient refusing transfer to [facility] for vascular services. Patient states you all have already fixed the problem that I have and I can just discharge from here . Risks discussed with patient. Outpatient follow up scheduled on October 06, 2022 with vascular surgeon.
--- NOTE | 2022-10-03 06:35 | PC.NURSE ---
transfer center called to confirm if pt is going to transfer or not, at this time, pt refusing transfer, informed [facility] transfer center to keep on list until decision is make early today.
[2022-10-03] MEDS: DOXYCYCLINE HYCLATE 100 MG TABLET PO (08:58)
[2022-10-03] MEDS: AMOXICILLIN/CLAVULANATE K 875-125 MG TAB 1 TABLET PO (08:58)
[2022-10-03 08:59] VITALS: PULSE 76
[2022-10-03] MEDS: amLODIPine BESYLATE 5 MG TABLET 10 MG PO (08:59)
[2022-10-03] MEDS: carvediloL 3.125 MG TABLET PO (08:59)
[2022-10-03] MEDS: PANTOPRAZOLE 40 MG TABLET PO (09:00)
[2022-10-03] MEDS: FLUTICASONE PROPIONATE 0.05% NA SPR 16 GM BTL (*BKC) 1 SPRAY NASAL (09:00)
[2022-10-03] MEDS: ATORVASTATIN 40 MG TABLET PO (09:00)
[2022-10-03] MEDS: GABAPENTIN 300 MG CAPSULE 600 MG PO ×2 (09:00→12:37)
[2022-10-03] MEDS: ASPIRIN 81 MG ENTERIC TABLET PO (09:00)
[2022-10-03] MEDS: CLOPIDOGREL BISULFATE 75 MG TABLET PO (09:00)
[2022-10-03] MEDS: INSULIN ASPART (*BKC) 100 UNITS/ML 50 UNITS SUB-Q ×2 (09:02→12:38)
[2022-10-03] MEDS: INSULIN ASPART (*BKC) 100 UNITS/ML SUB-Q ×2 (09:02→12:38)
[2022-10-03] MEDS: INSULIN GLARGINE (*BKC) 100 UNITS/ML 30 UNITS SUB-Q (09:02)
[2022-10-03] MEDS: TACROLIMUS 0.1% 30 GM OINTMENT 1 APPLIC TOPICAL (09:13)
[2022-10-03] MEDS: NEOMYCIN/POLYMYXIN/BACITRACIN OINTMENT 15 GM TUBE 1 APPLIC TOPICAL (09:13)
[2022-10-03] MEDS: EUCERIN CREAM 120 GM JAR 1 APPLIC TOPICAL (09:13)
[2022-10-03] MEDS: FLUTICASONE/UMECLIDIN/VILANTER 100-62.5-25 MCG ELLIPTA 1 PUFF INHALATION (09:24)
[2022-10-03] MEDS: ALBUTEROL SULFATE NEB 2.5 MG/3 ML INH INHALATION (09:29)
[2022-10-03 09:32] VITALS: PULSE 79; RESP 20
[2022-10-03 09:45] LABS: Glucose Point of Care 294 mg/dl (65-105)
[2022-10-03 09:47] LABS: Anion Gap 8 mmol/L (8-16); Blood Urea Nitrogen 40 mg/dL (9-20); Calcium 8.6 mg/dL (8.4-10.2); Carbon Dioxide 25 mmol/L (22-30); Chloride 99 mmol/L (98-107); Estimated CRCL calculation 49 ml/min; Estimated Glomerular Filt Rate 44; Glucose 348 mg/dL (65-110); Potassium 5.1 mmol/L (3.4-5.0); Sodium 132 mmol/L (137-145)
[2022-10-03 10:10] LABS: Basophils Absolute Auto 0.1 K/mm3 (0.0-0.1); Basophils Percent Auto 0.7 % (0.2-1.2); Eosinophils Absolute Auto 0.5 K/mm3 (0-0.3); Eosinophils Percent Auto 7.2 % (0-4.4); Hematocrit 39.4 % (42.0-52.0); Hemoglobin 12.3 g/dL (14.0-18.0); Immature Granulocyte Absolute 0.07 K/mm3 (0.00-0.031); Lymphocytes Absolute Auto 1.14 K/mm3 (0.9-3.2); Lymphocytes Percent Auto 15.8 % (18.3-44.2); Mean Corpuscular HGB Conc 31.2 g/dl (32-36); Mean Corpuscular Hemoglobin 29.4 pg (26-34); Mean Corpuscular Volume 94.3 fl (80-100); Mean Platelet Volume 10.8 fl (7.4-10.4); Monocytes Absolute Auto 0.6 K/mm3 (0.1-0.6); Monocytes Percent Auto 7.7 % (2.6-8.5); Neutrophils Absolute Auto 4.9 K/mm3 (1.3-6.7); Neutrophils Percent Auto 67.6 % (45.5-73.1); Platelet Count Result 303 k/mm3 (150-375); Red Blood Count 4.18 M/mm3 (4.6-6.20); Red Cell Distribution Width 17.7 % (11.5-14.5); White Blood Count 7.2 K/mm3 (4.5-10.0)
[2022-10-03 12:04] LABS: Glucose Point of Care 286 mg/dl (65-105)
--- NOTE | 2022-10-03 12:44 | PM.DS ---
DS: Admitting Diagnosis Discharge Date 10/03/2022 1245 Admitting Diagnosis (1) Post-operative pain: ?Code(s): G89.18 - Other acute postprocedural pain ?Status:?Acute ?Assessment and Plan: ?patient is currently admitted to regular medical floor ?pain management ?patient is awaiting bed to open up at place of surgery ?supportive care ?continue to monitor (2) Failure to thrive in adult: ?Code(s): R62.7 - Adult failure to thrive ?Status:?Acute ?Assessment and Plan: ?patient will need placement (3) Edema of right lower extremity: ?Code(s): R60.0 - Localized edema ?Status:?Acute ?Assessment and Plan: ?likely secondary to surgery ?continue to monitor (4) SINDHU (obstructive sleep apnea): ?Code(s): G47.33 - Obstructive sleep apnea (adult) (pediatric) ?Status:?Chronic ?Assessment and Plan: ?continue CPAP at nighttime (5) Peripheral arterial disease: ?Code(s): I73.9 - Peripheral vascular disease, unspecified ?Status:?Chronic ?Assessment and Plan: ?status post bypass surgery (6) Diabetes type 2, uncontrolled: ?Status:?Chronic ?Assessment and Plan: ?Accu-Cheks AC and HS ?continue insulin glargine continue insulin sliding scale ?holding metformin (7) S/P femoral-popliteal bypass surgery: ?Code(s): Z95.828 - Presence of other vascular implants and grafts ?Status:?Acute ?Assessment and Plan: ?continue to monitor DS: Discharge Diagnosis Discharge Diagnosis (1) Edema of right lower extremity: Code(s): R60.0 - Localized edema Status: Acute Assessment and Plan: Increase RLE edema, ecchymosis, discharge, mild erythema at incision sites, and pain to RLE Inflammation, lymphadenopathy, and fluid surrounding graft noted on CTA RLE that may be postop changes or possible acute infection. CRP 2.7, ESR 59 and elevated. Trend CRP and ESR- 12/2 downtrending. 10/01 change furosemide to 40 mg IV BID. Gentle kassandra wrap and elevate RLE on 2 pillows. Continue empiric antibiotics - Rocephin 1 gram Q24 hours and Vancomycin pharmacy to dose- WBC 11, afebrile. Improved appearance. Transition to oral doxycycline for MRSA coverage and oral Augmentin for strep and enterococcus coverage and continue for 8-12 days for 10-14 day antibiotic course. Patient has been accepted by Vascular surgery at [facility] and transfer is pending an open bed. He has a history of MRSA colonization. Venous duplex without evidence of DVT Discussed CT results and concerns of fluid retention and possible abscess with radiologist. Suggested MRI evaluation and per Radiology this is unlikely to r/o infection or infected hematoma more than CTA RLE. Infected hematoma cannot be ruled out. Patient is still awaiting transfer bed for Vascular evaluation. Improved edema with IV diuretic. Continue IV today and then transition to oral in the morning. (2) Post-operative pain: Code(s): G89.18 - Other acute postprocedural pain Status: Acute Assessment and Plan: Pain appears to be secondary to edema, hematomas. Improving per patient. PRN analgesics. continue to monitor Improved. Counseled to take oral analgesics and not IV. (3) Peripheral arterial disease: Code(s): I73.9 - Peripheral vascular disease, unspecified Status: Chronic Assessment and Plan: Chronic PAD s/p Fem-pop right extremity before . continue statin, Aspirin and plavix Control postop glucose for improved wound healing. Cleanse surgical sites with normal saline and apply dry gauze to keep clean and dry. (4) Diabetes type 2, uncontrolled: Qualifiers: Coma presence: without coma Glycemic state: with hypoglycemia Qualified Code(s): E11.649 - Type 2 diabetes mellitus with hypoglycemia without coma Status: Chronic Assessment and Plan: Chronic. Insulin dependent. 09/30/22 hypoglycemia episode, glucose
== END 2022-10-03 14:50 | disposition home health service (06) ==
LOC: ANHED 09-29 20:12 → ANH3MEDSUR 09-29 23:19
PROVIDERS: Emergency Medicine; Nurse Practitioner Family; Admitting Provider Internal Medicine; Emergency Provider Emergency Medicine; PCP Physician Assistant; Visit Provider Family Medicine
DX: R60.0 Localized edema (principal); G89.18 Other acute postprocedural pain; I73.9 Peripheral vascular disease, unspecified; E11.649 Type 2 diabetes mellitus with hypoglycemia without coma; L40.9 Psoriasis, unspecified; Z95.820 Peripheral vascular angioplasty status with implants and grafts; I10 Essential (primary) hypertension; J44.9 Chronic obstructive pulmonary disease, unspecified; G47.33 Obstructive sleep apnea (adult) (pediatric); Z99.89 Dependence on other enabling machines and devices; L76.32 Postprocedural hematoma of skin and subcutaneous tissue following other procedure; R62.7 Adult failure to thrive; M79.89 Other specified soft tissue disorders; R53.1 Weakness; I25.10 Atherosclerotic heart disease of native coronary artery without angina pectoris; D64.9 Anemia, unspecified; Z20.822 Contact with and (suspected) exposure to COVID-19; M71.21 Synovial cyst of popliteal space [Baker], right knee; E78.5 Hyperlipidemia, unspecified; Z86.19 Personal history of other infectious and parasitic diseases; Z79.51 Long term (current) use of inhaled steroids; Z79.4 Long term (current) use of insulin; Z79.84 Long term (current) use of oral hypoglycemic drugs; Z79.02 Long term (current) use of antithrombotics/antiplatelets; Z79.899 Other long term (current) drug therapy; Z87.891 Personal history of nicotine dependence
CPT/HCPCS: 36415; 73706; 80048; 80053; 82948; 83036; 83735; 85025; 85610; 85652; 85730; 86140; 86850; 86900; 86901; 87040; 87636; 93971; 94640; 96365; 96366; 96367; 96375; 96376; 97161; 97165; 99285; A9270; G0378; J0696; J1170; J1815; J1940; J3370; Q9967; U0003; U0005

== ENCOUNTER 2023-03-19 10:44 | Emergency (ER) | payer MEDICARE, MEDICAID, SELFPAY ==
[2023-03-19] VITALS (14 sets, daily range): BP systolic 140–162; BP diastolic 60–94; PULSE 74–100; RESP 15–20; O2SAT 93–96
--- NOTE | ~2023-03-19 | CT_ITS ---
EXAMINATION: CT brain wo con DATE: 03/19/2023 12:37 INDICATION: Headache TECHNIQUE: Computed tomography (CT) of the head was performed without intravenous contrast. The dose- length product was 605.33 mGy-cm. Automated exposure control and iterative reconstruction technique w ere employed. COMPARISON: None FINDINGS: Mild generalized brain parenchymal volume loss, commensurate with age. There are scattered mild periventricular and subcortical white matter changes, most likely related to small vessel ischem ic disease (microangiopathy). No ventriculomegaly or midline shift. Basilar cisterns are patent. No a cute intracranial hemorrhage, infarction, mass or mass effect. IMPRESSION: 1. No acute intracranial abnormality. Reviewed, dictated and finalized at location B.
--- NOTE | 2023-03-19 11:20 | PC.NURSE ---
Vascular dental manager contacted for PIV placement and lab draw.
--- NOTE | 2023-03-19 11:21 | PC.NURSE ---
Patient report given to LARRY Hurtado. All questions answered and care of patient transferred.
[2023-03-19 11:45] LABS: Basophils Absolute Auto 0.1 K/mm3 (0.0-0.1); Basophils Percent Auto 0.8 % (0.2-1.2); Eosinophils Absolute Auto 0.7 K/mm3 (0-0.3); Eosinophils Percent Auto 7.2 % (0-4.4); Hematocrit 31.2 % (42.0-52.0); Hemoglobin 9.5 g/dL (14.0-18.0); Immature Granulocyte Absolute 0.03 K/mm3 (0.00-0.031); Immature Granulocyte Percent A 0.3 % (0-0.5); Lymphocytes Absolute Auto 1.13 K/mm3 (0.9-3.2); Lymphocytes Percent Auto 11.6 % (18.3-44.2); Mean Corpuscular HGB Conc 30.4 g/dl (32-36); Mean Corpuscular Hemoglobin 27.5 pg (26-34); Mean Corpuscular Volume 90.2 fl (80-100); Mean Platelet Volume 10.5 fl (7.4-10.4); Monocytes Absolute Auto 0.8 K/mm3 (0.1-0.6); Monocytes Percent Auto 8.4 % (2.6-8.5); Neutrophils Percent Auto 71.7 % (45.5-73.1); Platelet Count Result 263 k/mm3 (150-375); Red Blood Count 3.46 M/mm3 (4.6-6.20); White Blood Count 9.8 K/mm3 (4.5-10.0)
[2023-03-19 11:55] LABS: Lactic Acid Reflex 1.5 mmol/L (0.7-2.0)
[2023-03-19] MEDS: ONDANSETRON INJ 4 MG/2 ML VIAL IV PUSH (12:44)
[2023-03-19] MEDS: MORPHINE SULFATE (*CRX) 4 MG/ML INJ IV PUSH ×2 (12:44→14:27)
[2023-03-19 13:47] LABS: Alanine Aminotransferase 28 U/L (6-50); Alkaline Phosphatase 100 U/L (38-126); Anion Gap 7 mmol/L (8-16); Aspartate Amino Transferase 24 U/L (17-59); Bilirubin,Total 0.5 mg/dL (0.2-1.3); Blood Urea Nitrogen 43 mg/dL (9-20); Calcium 8.8 mg/dL (8.4-10.2); Carbon Dioxide 35 mmol/L (22-30); Chloride 96 mmol/L (98-107); Estimated CRCL calculation 53 ml/min; Estimated Glomerular Filt Rate 47; Glucose 373 mg/dL (65-110); Lipase 28 U/L (23-300); Potassium 4.1 mmol/L (3.4-5.0); Sodium 138 mmol/L (137-145)
[2023-03-19] MEDS: prednisoLONE ACETATE 1% OPHTH 5 ML 1 DROP LEFT EYE (13:56)
[2023-03-19 14:10] LABS: Appearance Urine Clear (Clear); Bacteria Urine None Seen /hpf; Bilirubin Urine Negative (Negative); Blood Urine Trace (Negative); Color Urine Yellow (Yellow); Glucose Urine UA 3+ mg/dL (Negative); Ketones Urine Negative (Negative); Leukocyte Esterase Ur Negative LEU/UL (Negative); Nitrate Urine Negative (Negative); Non Pathogenic Casts 0-2; Protein Urine 2+ mg/dL (Negative); Specific Grav Ur 1.019 (1.001-1.035); Squamous Epithelial Cell Urine None seen /hpf (Few); Urobilinogen Urine 0.2 mg/dL (<2.0); WBC Urine 0-5 /hpf; pH Urine 6.5 (5.0-9.0)
[2023-03-19 14:13] LABS: Add Urine Microscopic? YES
--- NOTE | 2023-03-19 14:56 | ED.GENADULT ---
HPI - General Adult General Chief complaint: Nausea/Vomiting/Diarrhea Stated complaint: flu like sx Time Seen by Provider: 03/19/23 12:09 Source: patient Mode of arrival: EMS Limitations: no limitations History of Present Illness HPI narrative: 62-year-old with a history of hypertension, diabetes, CAD with multiple stents, PVD presently residing in a alf here with complaints of nausea, vomiting and diarrhea associated with high blood sugars. Also complains of headache and left eye pain. He denies any fever or chills. This morning his blood sugar at alf was 543. He denies any chest pain or abdominal pain. Onset (ago): day(s) (1) Severity: moderate Relieving factors: none Exacerbating factors: none Associated symptoms: denies other symptoms Related Data Home Medications Medication Instructions Recorded Confirmed atorvastatin 80 mg tablet 40 mg PO DAILY 07/20/22 09/30/22 dapagliflozin 10 mg tablet 10 mg PO DAILY 07/20/22 09/30/22 (Farxiga) fluticasone fur. 100 mcg-umeclid 1 inh inhalation DAILY 07/20/22 09/30/22 62.5 mcg-vilant 25 mcg inhalat.powder (Trelegy Ellipta) gabapentin 300 mg capsule 600 mg PO TID 07/20/22 09/30/22 insulin aspart U-100 100 unit/mL 55 unit subcut TIDWM 07/20/22 09/30/22 subcutaneous solution (Novolog U-100 Insulin aspart) metformin 500 mg tablet,extended 500 mg PO DAILY 07/20/22 09/30/22 release 24 hr albuterol sulfate 2.5 mg/3 mL 2.5 mg inhalation Q4-6H PRN 07/21/22 09/30/22 (0.083 %) solution for nebulization Shortness Of Breath clobetasol 0.05 % topical cream 1 applic topical BID PRN PSORIASIS 07/21/22 09/30/22 clopidogrel 75 mg tablet 75 mg PO DAILY 07/21/22 09/30/22 omeprazole 40 mg capsule,delayed 40 mg PO DAILY 08/27/22 09/30/22 release furosemide 20 mg tablet 80 mg PO DAILY 09/29/22 09/30/22 hydroxyzine HCl 25 mg tablet 25 mg PO Q6H PRN Itching 09/29/22 09/30/22 albuterol sulfate 90 mcg/actuation 2 puff inhalation Q6H PRN 09/30/22 09/30/22 aerosol inhaler Shortness Of Breath ergocalciferol (vitamin D2) 1,250 50,000 unit PO WEEKLY 09/30/22 09/30/22 mcg (50,000 unit) capsule fluticasone propionate 50 1 spray intranasal DAILY 09/30/22 09/30/22 mcg/actuation nasal spray,suspension Allergies Allergy/AdvReac Type Severity Reaction Status Date / Time No Known Allergies Allergy Verified 09/07/22 15:29 Review of Systems Review of Systems: All systems reviewed & are unremarkable except as noted in HPI and below Constitutional: Constitutional: Reports no additional constitutional complaints Eyes: Eyes: Reports as per HPI and Reports eye pain (in the left eye) ENT: Reports system reviewed and no additional complaints, except as documented Cardiovascular: Cardiovascular: Reports no additional cardiovascular complaints Respiratory: Respiratory: Reports no additional respiratory complaints Gastrointestinal: Gastrointestinal: Reports as per HPI Musculoskeletal: Musculoskeletal: Reports no additional musculoskeletal complaints Integumentary/Breasts: Skin/Breast: Reports system reviewed and no additional complaints, except as docu Neurologic: Reports as per HPI Psychiatric: Psychiatric: Reports no additional psychiatric complaints PMFSH Past Medical History Medical History COPD (chronic obstructive pulmonary disease) Coronary artery disease Diabetes type 2, uncontrolled Dyslipidemia Hepatitis C HTN (hypertension) with goal to be determined Peripheral arterial disease Renal cell carcinoma Surgical History Surgical History History of lumbosacral spine surgery Hx of CABG Status post peripheral artery angioplasty with insertion of stent Family History Family History Sibling Cerebrovascular accident Father Acute myocardial infarction Grandparent Congestive heart failure Ot
== END 2023-03-19 17:00 ==
PROVIDERS: Emergency Medicine; Emergency Provider Family Medicine; PCP Physician Assistant
DX: K52.9 Noninfective gastroenteritis and colitis, unspecified (principal); H11.422 Conjunctival edema, left eye; I10 Essential (primary) hypertension; I25.10 Atherosclerotic heart disease of native coronary artery without angina pectoris; E11.51 Type 2 diabetes mellitus with diabetic peripheral angiopathy without gangrene; I73.9 Peripheral vascular disease, unspecified; J44.9 Chronic obstructive pulmonary disease, unspecified; E78.5 Hyperlipidemia, unspecified; Z95.5 Presence of coronary angioplasty implant and graft; Z95.1 Presence of aortocoronary bypass graft; Z85.528 Personal history of other malignant neoplasm of kidney; Z86.19 Personal history of other infectious and parasitic diseases; Z87.891 Personal history of nicotine dependence; Z79.4 Long term (current) use of insulin; Z79.84 Long term (current) use of oral hypoglycemic drugs; Z79.82 Long term (current) use of aspirin
CPT/HCPCS: 36415; 70450; 80053; 81001; 83605; 83690; 85025; 96374; 96375; 96376; 99284; A9270; J2270; J2405